=== PATIENT | female | born 1935 | race Caucasian/White ===

== ENCOUNTER 2018-09-06 09:46 | Inpatient (IN) | payer MEDICARE, OTHER ==
[~2018-09-06] VITALS: Ht 154.9 cm; Wt 65.9 kg
[~2018-09-06 09:46] MED LIST: ATEN-51 PO; MET25 PO; PRED2.5T3 PO; PREG150C PO; PRIM250T37 PO; WARFARIN
[2018-09-06] MEDS ORDERED: ALBUTEROL 0.5% (NEB) 2.5 MG/0.5 ML AMP INH STA (09:56)
[2018-09-06] MEDS ORDERED: DEXAMETHASONE 10 MG/ML 1 ML INJ IV STA (09:56)
[2018-09-06] MEDS ORDERED: IPRATROPIUM (NEB) 0.5 MG/2.5 ML AMP INH STA (09:56)
[2018-09-06] MEDS ORDERED: SODIUM CHLORIDE 0.9% 1L BAG IV* STA (09:56)
[2018-09-06] MEDS ORDERED: CEFEPIME 2GM/50 ML (PMX) 50 ML IVPB STA (09:56)
[2018-09-06] MEDS ORDERED: MAGNESIUM SULFATE 2 GM/50 ML 50 ML IVPB STA (09:56)
[2018-09-06] MEDS ORDERED: VANCOMYCIN 1 GM (PMX) 250 ML IVPB ONE (10:00)
[2018-09-06] MEDS ORDERED: ASC500 PO (12:44)
[2018-09-06] MEDS ORDERED: DOCU-144 PO (12:44)
[2018-09-06] MEDS ORDERED: MULT-105 PO (12:45)
[2018-09-06] MEDS ORDERED: ACET325T33 PO (12:46)
[2018-09-06] MEDS ORDERED: PRED5TAB PO (12:47)
[2018-09-06] MEDS ORDERED: LYR75 PO (12:48)
[2018-09-06] MEDS ORDERED: PRIM250T37 PO (12:49)
[2018-09-06] MEDS ORDERED: AMLO5TAB4 PO (12:50)
[2018-09-06] MEDS ORDERED: CYAN100080 PO (12:51)
[2018-09-06] MEDS ORDERED: ATOR-2 PO (12:51)
[2018-09-06] MEDS ORDERED: ERGO500013 PO (12:52)
[2018-09-06] MEDS ORDERED: FOLI-49 PO (12:52)
[2018-09-06] MEDS ORDERED: HYDR-3671 PO (12:53)
[2018-09-06] MEDS ORDERED: METO-448 PO (12:54)
[2018-09-06] MEDS ORDERED: AMIN30LI PO (12:55)
[2018-09-06] MEDS ORDERED: FER325 PO (12:55)
[2018-09-06] MEDS ORDERED: SULF500T5 PO (12:58)
[2018-09-06] MEDS ORDERED: GUAI600T23 PO (12:59)
[2018-09-06] MEDS ORDERED: CALC-207 PO (13:00)
[2018-09-06] MEDS ORDERED: ACETAMINOPHEN 325 MG TAB PO PRN (13:00)
[2018-09-06] MEDS ORDERED: ONDANSETRON 4 MG INJ IV PRN (13:00)
[2018-09-06] MEDS ORDERED: FLUO10TA PO (13:01)
[2018-09-06] MEDS ORDERED: MAGN400O19 PO (13:01)
[2018-09-06] MEDS ORDERED: BISA10SU75 PR (13:02)
[2018-09-06] MEDS ORDERED: NA P230E RC (13:03)
--- NOTE | 2018-09-06 13:09 | ERD ---
ER Documentation Chief Complaint Chief Complaint SOB HPI 83-year-old female history of some dementia who presents to the emergency room complaining of wheezing and shortness of breath. Patient is DNR with limited interventions recommended. Remainder of HPI is very limited. ROS Limited as documented above Medications Home Meds Reported Medications Na Phos,M-B/Na Phos,Di-Ba (Fleet Enema Extra) 230 Ml Enema, 1 APPLIC RC Q2D, ENEMA 09/06/18 Bisacodyl* (Bisacodyl*) 10 Mg Supp, 10 MG NJ DAILY, SUPP 09/06/18 Fluoxetine Hcl* (Fluoxetine Hcl*) 10 Mg Tablet, 10 MG PO DAILY, TAB 09/06/18 Magnesium Hydroxide* (Milk Of Magnesia*) 400 Mg/5 Ml Oral.susp, 30 ML PO DAILY, ML 09/06/18 Calcium Carbonate/Vitamin D3 (Calcium 500 + Vit D 200 Tablet) 1 Each Tablet, 1 EACH PO BID, TAB 09/06/18 Guaifenesin (Guaifenesin) 600 Mg Tablet.sa, 600 MG PO BID, TAB END DATE 09/08/18 09/06/18 Sulfasalazine* (Sulfazine*) 500 Mg Tablet, 500 MG PO TID, TAB 09/06/18 Ferrous Sulfate* (Ferrous Sulfate*) 325 Mg Tabec, 325 MG PO TID, TAB 09/06/18 Amino Acids/Protein Hydrolys (PRO-STAT LIQUID) 30 Ml Liquid.pkt, 30 ML PO TID 09/06/18 Metoprolol Tartrate* (Lopressor*) 25 Mg Tab, 25 MG PO BID PRN for HOLD IF SBP<110, #60 TAB 09/06/18 Hydralazine Hcl* (Hydralazine Hcl*) 25 Mg Tab, 25 MG PO QID PRN for FOR SBP>160, #60 TAB 09/06/18 Folic Acid* (Folic Acid*) 1 Mg Tablet, 1 MG PO DAILY, TAB 09/06/18 Ergocalciferol (Vitamin D2) (VITAMIN D2) 50,000 Unit Capsule, 04591 UNIT PO Q MON, CAP 09/06/18 Cyanocobalamin* (Vitamin B-12*) 1,000 Mcg Tablet.sa, 1000 MCG PO DAILY, TAB 09/06/18 Atorvastatin* (Atorvastatin*) 80 Mg Tablet, 80 MG PO QHS, #30 TAB 09/06/18 Amlodipine Besylate* (Norvasc*) 5 Mg Tablet, 5 MG PO DAILY, TAB HOLD IF SBP<110 09/06/18 Primidone* (Mysoline*) 250 Mg Tablet, 250 MG PO BID, TAB 09/06/18 Pregabalin* (Lyrica*) 75 Mg Capsule, 150 MG PO BID, CAP 09/06/18 Prednisone* (Prednisone*) 5 Mg Tab, 5 MG PO DAILY, TAB 09/06/18 Acetaminophen* (Tylenol*) 325 Mg Tablet, 650 MG PO Q4H PRN for PAIN LEVEL 1- 10/08, TAB 09/06/18 Multivitamin with Minerals (Multivitamins with Minerals) 1 Each Tablet, 1 EACH PO DAILY, TAB 09/06/18 Docusate Sodium* (Colace*) 100 Mg Capsule, 200 MG PO BID, #60 CAP 09/06/18 Ascorbic Acid (Vitamin C) 500 Mg Tab, 500 MG PO DAILY, TAB 09/06/18 Discontinued Reported Medications Prednisone* (Prednisone*) 2.5 Mg Tablet, 2.5 MG PO DAILY, TAB 12/11/14 [Warfarin] No Conflict Check TITRATING DOSE PER PT 12/11/14 Methotrexate* (Methotrexate*) 2.5 Mg Tab, 15 MG PO EVERY THURSDAY, TAB 12/11/14 Primidone* (Mysoline*) 250 Mg Tablet, 250 MG PO BID 08/10/12 Pregabalin* (Lyrica*) 150 Mg Capsule, 150 MG PO BID 08/10/12 Atenolol* (Atenolol*) 25 Mg Tablet, 25 MG PO DAILY 08/10/12 Allergies Allergies: Coded Allergies: No Known Allergy (Unverified , 09/06/18) PMhx/Soc History of Surgery: Yes (R HIP, L KNEE SX 09/28/14) Anesthesia Reaction: No Hx 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 Disorder: No Hx Respiratory Disorders: No Hx Cardiac Disorders: Yes (HTN, clotting disorder, A. FIB) Hx Psychiatric Problems: No Hx Miscellaneous Medical Probl: Yes (DVT, EPILEPSY) Hx Alcohol Use: No Hx Substance Use: No Hx Tobacco Use: No Smoking Status: Never smoker FmHx Family History: No diabetes Physical Exam Vitals Vital Signs Date Temp Pulse Resp B/P (MAP) Pulse Ox O2 O2 Flow FiO2 Time Delivery Rate 09/06/18 102 20 130/55 97 Nasal 2.0 12:00 (80) Cannula 09/06/18 102 22 96 21 11:10 09/06/18 105 26 139/111 98 Non 11:00 (120) Rebreather 09/06/18 98.2 108 30 125/72 97 09:50 (89) 09/06/18 98.2 108 30 125/72 97 09:50 (89) 09/06/18 Rebreather 8 09:50 09/06/18 Rebreather 8.0 09:50 Physical Exam General: Well developed, well nourished, no acute distress Head: Normocephalic, atraumatic. Eyes: Pupils equally reactive, EOM intact ENT: Moist mucous membranes Neck: Supple, no lymphadenopathy Respiratory: Wheezing, slight increased work of breathing Cardiovascular: Slight tachycardia, irregularly irregular, no murmurs, rubs, or gallops Abdominal: Soft, non-tender, non-distended, no peritoneal signs : Deferred MSK: No edema, no unilateral swelling, 5/5 strength Neurologic: Alert and oriented, moving all extremities, normal speech, no focal weakness, no cerebellar signs Skin: No rash Psych: Normal mood Result Diagram: 09/06/18 1012 09/06/18 1014 Results 24 hrs Laboratory Tests Test 09/06/18 10:12 09/06/18 10:14 09/06/18 10:17 09/06/18 11:20 White Blood Count 11.7 10^3/ul Red Blood Count 5.12 10^6/ul Hemoglobin 12.5 g/dl Hematocrit 40.4 % Mean Corpuscular 78.9 fl Volume Mean Corpuscular 24.4 pg Hemoglobin Mean Corpuscular 30.9 g/dl Hemoglobin Concen t Red Cell 23.3 % Distribution Width Platelet Count 235 10^3/UL Mean Platelet 9.9 fl Volume Immature 0.700 % Granulocytes % Neutrophils % 69.7 % Lymphocytes % 18.5 % Monocytes % 10.6 % Eosinophils % 0.1 % Basophils % 0.4 % Nucleated Red 0.0 /100WBC Blood Cells % Immature 0.080 10^3/ul Granulocytes # Neutrophils # 8.2 10^3/ul Lymphocytes # 2.2 10^3/ul Monocytes # 1.3 10^3/ul Eosinophils # 0.0 10^3/ul Basophils # 0.1 10^3/ul Nucleated Red 0.0 10^3/ul Blood Cells # Prothrombin Time 23.8 Sec Prothrombin Time 1.9 Ratio INR International 2.12 Normalized Ratio Activated 41.3 Sec Partial Thrombopl ast Time Sodium Level 134 mmol/L Potassium Level 4.1 mmol/L Chloride Level 98 mmol/L Carbon Dioxide 29 mmol/L Level Anion Gap 7 Blood Urea 11 mg/dl Nitrogen Creatinine 0.33 mg/dl Est Glomerular mL/min Filtrat Rate mL/min Glucose Level 144 mg/dl Calcium Level 8.3 mg/dl Total Bilirubin 0.2 mg/dl Direct Bilirubin 0.00 mg/dl Indirect 0.2 mg/dl Bilirubin Aspartate Amino 69 IU/L Transf (AST/SGOT) Alanine 40 IU/L Aminotransferase (ALT/SGPT) Alkaline 128 IU/L Phosphatase Troponin I < 0.012 ng/ml Total Protein 7.3 g/dl Albumin 3.0 g/dl Globulin 4.30 g/dl Albumin/Globulin 0.69 Ratio POC Venous 2.0 mmol/L Lactate Urine Color JOSÉ ANTONIO Urine Clarity TURBID Urine pH 7.0 Urine Specific 1.020 [place] Urine Ketones NEGATIVE mg/dL Urine Nitrite NEGATIVE mg/dL Urine Bilirubin NEGATIVE mg/dL Urine NEGATIVE mg/dL Urobilinogen Urine Leukocyte 1+ Murali/ul Esterase Urine Microscopic 66 /HPF RBC Urine Microscopic > 182 /HPF WBC Urine Squamous FEW /HPF Epithelial Cells Urine Amorphous FEW /HPF Crystals Urine Bacteria MANY /HPF Urine Mucus MODERATE /HPF Urine Yeast FEW /HPF (Budding) Urine Hemoglobin 2+ mg/dL Urine Glucose NEGATIVE mg/dL Urine Total 1+ mg/dl Protein Test 09/06/18 12:21 Lactic Acid Level 2.5 mmol/L Current Medications Medications Dose Sig/Katie Start Time Status Last (Trade) Ordered Route PRN Stop Time Admin Dose Reason Admin Sodium 1,970 ml BOLUS OVER 2 09/06/18 DC 09/06/18 Chloride HOURS STAT 09:56 09/06/18 10:36 (NS) IV* 09:59 Cefepime HCl 50 ml @ ONCE STAT 09/06/18 DC 09/06/18 100 mls/hr IVPB 09:56 09/06/18 10:35 10:25 Vancomycin 250 ml @ ONCE ONCE 09/06/18 DC 09/06/18 HCl 125 mls/hr IVPB 10:00 09/06/18 11:18 11:59 Albuterol 15 mg ONCE STAT 09/06/18 DC 09/06/18 (Proventil INH 09:56 09/06/18 11:09 0.5% (Neb)) 09:59 Ipratropium 2 mg ONCE STAT 09/06/18 DC 09/06/18 [place] INH 09:56 09/06/18 11:09 (Atrovent 09:59 0.02% (Neb)) 10 mg ONCE STAT 09/06/18 DC 09/06/18 Dexamethasone IV 09:56 09/06/18 10:59 (Decadron) 09:59 Magnesium 50 ml @ 25 ONCE STAT 09/06/18 DC 09/06/18 Sulfate mls/hr IVPB 09:56 09/06/18 10:59 11:55 Ondansetron 4 mg BRIDGE ORDER 09/06/18 HCl (Zofran PRN IV 13:00 09/07/18 Inj) NAUSEA/VOMITI 12:59 NG 650 mg ER BRIDGE 09/06/18 Acetaminophen PRN PO 13:00 09/07/18 (Tylenol .MILD PAIN 12:59 Tab) 1-3 OR TEMP Procedures/MDM EKG, MONITORS, & DIAGNOSTIC IMAGING: EKG: I reviewed and interpreted a 12-lead EKG. Rhythm: A. fib, rate around 100 ST Changes: No contiguous ST segment elevations T waves: No contiguous T wave inversions Impression: No evidence of acute cardiac ischemia CXR IMPRESSION: 1. Mild prominence of the interstitial markings, may reflect mild underlying interstitial edema or chronic lung changes. Findings are increased when compared to the prior examination. 2. Mild cardiomegaly and aortic atherosclerosis. RPTAT: LAB INTERPRETATION: I reviewed the laboratory testing and it shows lactic acid of 2.5 increased from 2.0 MEDICAL DECISION MAKING: The patient had Sirs criteria, wheezing and shortness of breath concerning for healthcare associated pneumonia. A code sepsis was initiated. ER COURSE: * Blood cultures prior to broad-spectrum antibiotics, 30 cc per kilogram bolus of normal saline * Patient given breathing treatment, magnesium, steroids * The patient's respiratory status is improving. Her blood pressure remained stable. The patient's lactic acid is having around 2-2.5. No indication for central line. Continue to monitor. * Patient's goals of care suggest DNR/DNI, limited interventions. The patient would not be a Central line candidate. CONSULTATION: None DISPOSITION PLAN: Accepting care team and consultations: I discussed the current laboratory data, diagnostic imaging and emergency care provided. Admitting team: Dr. Green on-call for primary care physician Admitting team indication: Insurance directed Sepsis Documentation: Patient's infectious symptoms have not stabilized and the patient is at risk of rapid decompensation. The patient will be admitted for careful hydration, antibiotic therapy, and infectious source control. SEVERE SEPSIS CRITERIA: Infectious source: Healthcare associated pneumonia End organ damage indicated by: [Lactate > 2.0 mmol/L SEPSIS MANAGEMENT Time of recognition of sepsis: Upon MD assessment. Time of recognition of severe sepsis: 1221. Time of recognition of septic shock: No septic shock at this time. 3 HOUR BUNDLE Blood cultures x 2 before broad-spectrum antibiotics: Yes 30 ml/kg NS bolus completed Initial lactate 2.0 Repeat lactate 2.5 SEPTIC SHOCK ASSESSMENT: No lactic acid > 4.0 No persistent hypotension (SBP < 90 or 40 mmHg drop, MAP < 65) despite 30 mL/kg IV fluid bolus VOLUME REASSESSMENT FOR SEPTIC SHOCK: The patient does not meet criteria for septic shock in the emergency department at this time PERSISTENT HYPOTENSION TREATMENT: Comfort care YES Central line not Required Vasopressor started not required I considered further perfusion assessment with CVP measurement, SCVO2, bedside ultrasound volume assessment, passive leg raise, trial of further fluid bolus. And proceeded with 30 ml/kg fluid bolus of NSS, broad spectrum antibiotics, and admission. CRITICAL CARE Critical care time 35 minutes Emergent fluid management while maintaining close respiratory support. Provision of immediate and broad-spectrum antibiotic therapy. Simultaneous assessment for possible sources in order to direct targeted therapy. Consideration for invasive and chemical support to prevent cardiopulmonary collapse. Critical care time is independent of procedures performed. Departure Diagnosis: Primary Impression: Healthcare-associated pneumonia Additional Impressions: Atrial fibrillation with controlled ventricular rate Severe sepsis Condition: Stable ODETTE HERNANDEZ MD Sep 06, 2018 13:09
[2018-09-06 14:46] VITALS: Ht 154.9 cm; Wt 65.9 kg
[2018-09-06 15:07] VITALS: BP 130/74; PULSE 109; RESP 19
--- NOTE | 2018-09-06 15:18 | HP ---
DATE OF ADMISSION: 09/06/2018 CHIEF COMPLAINT AND HISTORY OF PRESENT ILLNESS: The patient is an 83-year-old lady referred by Dr. Thu nolen from a convalescent home. The patient has history of dementia, has been having increasing david rtness of breath, wheezing for the past 2 weeks, has had a trial of different inhalers, breathing reggie atments without any improvement and patient was evaluated in the Emergency Room and was admitted. Th e patient is unable to provide any current history at this time. MEDICATIONS: 1. Fluoxetine 10 mg daily. 2. Sulfasalazine 500 mg t.i.d. 3. Metoprolol tartrate 25 mg b.i.d. 4. Hydralazine 25 mg q.i.d. p.r.n. 5. Atorvastatin 80 mg daily. 6. Amlodipine 5 mg daily. 7. Primidone 250 mg b.i.d. 8. Pregabalin 75 mg b.i.d. 9. Prednisone 5 mg daily. HISTORY OF PRESENT ILLNESS: Further history will be documented after discussing with the patient's f amily. I am unable to contact any family members at this time. The patient has had prior right hip, right knee replacement, followed by postop infection treated in 2014. REVIEW OF SYSTEMS: Unable to get any other history from the patient at this time. PHYSICAL EXAMINATION: GENERAL: The patient is an obesely built female who is in moderate respiratory distress. VITAL SIGNS: Temperature 98.0, blood pressure 129/94, O2 saturation 95% on 2 liters nasal cannula. HEENT: Mild pallor with cyanosis. Tongue is coated, dry. NECK: Supple. No thyromegaly, bruits. CHEST: Revealed bilateral wheezes, rhonchi. CARDIOVASCULAR: S1, S2 with no definite gallops. ABDOMEN: Obese, nontender. EXTREMITIES: Trace edema. Homans sign is negative. PELVIC, RECTAL, BREAST: Deferred due to patient discomfort. LABORATORY DATA: Initial WBC 11.7, hematocrit 40.4. Sodium 134, potassium 4.1, BUN 11, creatinine 0 .23. Lactic acid is 2.5. UA shows positive for leukocyte esterase, many bacteria. Chest x-ray show s prominence of interstitial markings with interstitial lung disease. IMPRESSION: 1. Acute respiratory failure with asthmatic bronchitis with possible pneumonia. 2. Underlying dementia. 3. Seizure disorder. 4. Remote history of atrial fibrillation. PLAN: We will admit the patient to the floor. Start the patient on intravenous Solu-Medrol, breathi ng treatments with hand-held nebulizer treatment. Beta agonists and antibiotic therapy with vancomyc in and cefepime. Follow along. We will also obtain urine cultures, along with blood cultures. Dictated By: NADINE JAMES MD SR/NTS Conf#: [id number] DID#: [id number] CC: KARAN YOUNG MD; NADINE JAMES MD;*EndCC*
[2018-09-06] MEDS ORDERED: METOPROLOL 25 MG TAB PO PRN (15:30)
[2018-09-06] MEDS ORDERED: VANCOMYCIN IV PER PHARMACY XX SCH (15:30)
[2018-09-06] MEDS ORDERED: ALBUTEROL/IPRATROPIUM (NEB) 3 ML AMP HHN PRN (16:00)
[2018-09-06] MEDS ORDERED: PENDING SANTYL ORDER FOR WOUND CARE XX PRN (16:00)
[2018-09-06 16:01] VITALS: PULSE 110
[2018-09-06] MEDS: METHYLPREDNISOLONE 40 MG INJ IV SCH (17:27)
[2018-09-06] MEDS: ALBUTEROL/IPRATROPIUM (NEB) 3 ML AMP HHN SCH ×2 (18:17→21:09)
[2018-09-06 20:00] VITALS: BP 126/68; PULSE 100; PULSE 103; RESP 22
[2018-09-06] MEDS: PRIMIDONE 250 MG TAB PO SCH (21:33)
[2018-09-06] MEDS: GUAIFENESIN LA 600 MG TABSR PO SCH (21:33)
[2018-09-06] MEDS: DOCUSATE SODIUM 100 MG CAP PO SCH (21:33)
[2018-09-06] MEDS: CALCIUM/VITAMIN D (500/200) TAB PO SCH (21:35)
[2018-09-06] MEDS: METOPROLOL 25 MG TAB PO SCH (21:35)
[2018-09-06] MEDS: ATORVASTATIN 80 MG TAB PO SCH (21:36)
[2018-09-06] MEDS: CEFEPIME 1GM/50 ML (PMX) 50 ML IVPB SCH (21:37)
[2018-09-06 23:29] VITALS: BP 130/83; PULSE 95; RESP 22
[2018-09-07] VITALS (12 sets, daily range): BP systolic 119–147; BP diastolic 70–96; PULSE 82–104; RESP 19–20
[2018-09-07] MEDS: METHYLPREDNISOLONE 40 MG INJ IV SCH ×5 (00:32→23:14)
[2018-09-07] MEDS: ALBUTEROL/IPRATROPIUM (NEB) 3 ML AMP HHN SCH ×6 (01:49→20:33)
[2018-09-07] MEDS: PANTOPRAZOLE (EC) 40 MG TAB PO SCH (05:19)
[2018-09-07] MEDS: CEFEPIME 1GM/50 ML (PMX) 50 ML IVPB SCH ×2 (09:06→20:40)
[2018-09-07] MEDS: METOPROLOL 25 MG TAB PO SCH ×2 (09:13→20:41)
[2018-09-07] MEDS: BISACODYL 10 MG SUPP PR SCH (09:13)
[2018-09-07] MEDS: FLUOXETINE 10 MG CAP PO SCH (09:13)
[2018-09-07] MEDS: PRIMIDONE 250 MG TAB PO SCH ×2 (09:15→20:41)
[2018-09-07] MEDS: CALCIUM/VITAMIN D (500/200) TAB PO SCH ×2 (09:15→20:40)
[2018-09-07] MEDS: DOCUSATE SODIUM 100 MG CAP PO SCH ×2 (09:15→20:40)
[2018-09-07] MEDS: GUAIFENESIN LA 600 MG TABSR PO SCH ×2 (09:15→20:40)
[2018-09-07] MEDS: ASCORBIC ACID 500 MG TAB PO SCH (09:15)
[2018-09-07] MEDS: ENOXAPARIN 30 MG/0.3 ML SYG SC SCH (09:38)
[2018-09-07] MEDS: VANCOMYCIN 750 MG (PMX) 250 ML IVPB SCH (09:44)
[2018-09-07] MEDS: PREGABALIN 75 MG CAP PO SCH ×2 (11:25→20:43)
[2018-09-07] MEDS: SULFASALAZINE 500 MG TAB PO SCH ×2 (13:21→20:40)
--- NOTE | 2018-09-07 15:10 | PN ---
DATE: 09/07/2018 SUBJECTIVE: The patient overall feels better. Shortness of breath is improving. Denies any chest p ain or palpitations. VITAL SIGNS: Temperature 97.8, blood pressure 136/96, O2 saturation 98% on 2 liters nasal cannula. JVD is not increased. CHEST: Revealed bilateral wheezes and rhonchi. HEART: S1, S2 heard, no definite gallops. EXTREMITIES: 1+ edema. Homans negative. LABORATORY DATA: Urine culture growing gram-negative rods, enterococcus. IMPRESSION: 1. Acute respiratory failure with asthmatic bronchitis with possible pneumonia. 2. Underlying dementia. 3. Seizure disorder. 4. History of atrial fibrillation. PLAN: The patient also has a urinary tract infection. We will continue vancomycin and cefepime for now until culture results are back. Recheck labs in a.m. Continue intravenous steroids, start taper ing next day, repeat chest x-ray in a.m. Dictated By: NADINE JAMES MD SR/NTS Conf#: [id number] DID#: [id number] CC: NADINE JAMES MD;*EndCC*
[2018-09-07] MEDS: ATORVASTATIN 80 MG TAB PO SCH (20:40)
[2018-09-08] VITALS (12 sets, daily range): BP systolic 121–167; BP diastolic 73–90; PULSE 77–111; RESP 19
[2018-09-08] MEDS: ALBUTEROL/IPRATROPIUM (NEB) 3 ML AMP HHN SCH ×6 (00:29→20:43)
[2018-09-08] MEDS: METHYLPREDNISOLONE 40 MG INJ IV SCH ×4 (05:45→23:16)
[2018-09-08] MEDS: PANTOPRAZOLE (EC) 40 MG TAB PO SCH (05:45)
[2018-09-08] MEDS: CEFEPIME 1GM/50 ML (PMX) 50 ML IVPB SCH ×2 (09:10→21:55)
[2018-09-08] MEDS: BISACODYL 10 MG SUPP PR SCH (09:11)
[2018-09-08] MEDS: PRIMIDONE 250 MG TAB PO SCH ×2 (09:11→21:55)
[2018-09-08] MEDS: FLUOXETINE 10 MG CAP PO SCH (09:11)
[2018-09-08] MEDS: DOCUSATE SODIUM 100 MG CAP PO SCH ×2 (09:11→21:56)
[2018-09-08] MEDS: CALCIUM/VITAMIN D (500/200) TAB PO SCH ×2 (09:11→21:55)
[2018-09-08] MEDS: GUAIFENESIN LA 600 MG TABSR PO SCH ×2 (09:11→21:55)
[2018-09-08] MEDS: ASCORBIC ACID 500 MG TAB PO SCH (09:11)
[2018-09-08] MEDS: SULFASALAZINE 500 MG TAB PO SCH ×3 (09:11→21:55)
[2018-09-08] MEDS: PREGABALIN 75 MG CAP PO SCH ×2 (09:12→21:59)
[2018-09-08] MEDS: METOPROLOL 25 MG TAB PO SCH ×2 (09:12→21:56)
[2018-09-08] MEDS: ENOXAPARIN 30 MG/0.3 ML SYG SC SCH (09:19)
[2018-09-08] MEDS: VANCOMYCIN 750 MG (PMX) 250 ML IVPB SCH (09:50)
[2018-09-08] MEDS: FUROSEMIDE 40 MG INJ IV SCH (14:54)
[2018-09-08] MEDS: POTASSIUM CHLORIDE (SR) 10 MEQ TAB PO SCH (14:54)
--- NOTE | 2018-09-08 18:32 | PN ---
DATE: 09/08/2018 SUBJECTIVE: Patient is more awake and responsive, continues to have shortness of breath. Denies any chest pain. PHYSICAL EXAMINATION VITAL SIGNS: Temperature 97.5, blood pressure 121/77, heart rate 92 per minute, O2 saturation 98% on 2 liters nasal cannula. HEENT: JVD is not increased. CHEST: Revealed diffuse wheezes and rhonchi. HEART: S1, S2 heard, no gallops. ABDOMEN: Soft, obese, nontender. EXTREMITIES: Trace edema. Homans sign is negative. IMAGING: Chest x-ray from yesterday shows increased pulmonary vascular congestion, cephalization not ed. IMPRESSION: 1. Acute respiratory failure with an asthmatic bronchitis with acute congestive heart failure. 2. Urinary tract infection with E. coli and Enterococcus. 3. Seizure disorder. 4. Atrial fibrillation. PLAN: Continue vancomycin and cefepime. Start the patient on intravenous Lasix 40 mg IV push every day. Recheck labs in a.m. and observe. Dictated By: NADINE JAMES MD, SR/KALE Conf#: [id number] DID#: [id number]
[2018-09-08] MEDS: ATORVASTATIN 80 MG TAB PO SCH (21:55)
[2018-09-09] VITALS (16 sets, daily range): BP systolic 91–128; BP diastolic 57–93; PULSE 92–130; RESP 18–21
[2018-09-09] MEDS: ALBUTEROL/IPRATROPIUM (NEB) 3 ML AMP HHN SCH ×6 (01:35→21:00)
[2018-09-09] MEDS: PANTOPRAZOLE (EC) 40 MG TAB PO SCH (06:07)
[2018-09-09] MEDS: METHYLPREDNISOLONE 40 MG INJ IV SCH ×4 (06:07→23:33)
[2018-09-09] MEDS: CEFEPIME 1GM/50 ML (PMX) 50 ML IVPB SCH ×2 (08:34→23:26)
[2018-09-09] MEDS: PRIMIDONE 250 MG TAB PO SCH ×2 (08:35→23:29)
[2018-09-09] MEDS: POTASSIUM CHLORIDE (SR) 10 MEQ TAB PO SCH (08:35)
[2018-09-09] MEDS: FLUOXETINE 10 MG CAP PO SCH (08:35)
[2018-09-09] MEDS: FUROSEMIDE 40 MG INJ IV SCH (08:35)
[2018-09-09] MEDS: BISACODYL 10 MG SUPP PR SCH (08:35)
[2018-09-09] MEDS: CALCIUM/VITAMIN D (500/200) TAB PO SCH ×2 (08:35→23:27)
[2018-09-09] MEDS: GUAIFENESIN LA 600 MG TABSR PO SCH ×2 (08:35→23:26)
[2018-09-09] MEDS: METOPROLOL 25 MG TAB PO SCH ×2 (08:36→23:28)
[2018-09-09] MEDS: DOCUSATE SODIUM 100 MG CAP PO SCH ×2 (08:38→23:27)
[2018-09-09] MEDS: SULFASALAZINE 500 MG TAB PO SCH ×3 (08:39→23:26)
[2018-09-09] MEDS: PREGABALIN 75 MG CAP PO SCH ×2 (08:41→23:33)
[2018-09-09] MEDS: ENOXAPARIN 30 MG/0.3 ML SYG SC SCH (09:00)
[2018-09-09] MEDS: ASCORBIC ACID 500 MG TAB PO SCH (09:00)
[2018-09-09] MEDS: VANCOMYCIN 750 MG (PMX) 250 ML IVPB SCH (10:19)
[2018-09-09] MEDS: DILTIAZEM-D5W 125MG/125ML DRIP 125 ML IV SCH ×3 (11:20→14:04)
[2018-09-09] MEDS ORDERED: DILTIAZEM-D5W 125MG/125ML DRIP 125 ML IV SCH (11:30)
[2018-09-09] MEDS ORDERED: FUROSEMIDE 40 MG INJ IV ONE (13:30)
--- NOTE | 2018-09-09 15:24 | RADRPT ---
Echocardiogram Report Patient Name: HELADIO LIONPatient ID: [id number] : 1935 (83y 8m)Study Date: 09/09/2018 2:15:57 PM Gender: FAccession #: [id number] Tech: Adalberto Welch [facility] Location: [facility] Ref.Physician: NADINE JAMES Height(Cm): BSA: Weight(Kg): Quality: Technically Difficult StudyAccount #: Procedures: Echocardiographic Report: Transthoracic echocardiogram with complete 2D, M-Mode, and doppler examination. Indications: Congestive Heart Failure, A-fib. Measurements: 2D/M Mode Doppler Measurement Value Normal Range Measurement Value Normal Range LVIDd 2D 3.2 [ 3.8 - 5.2 ] cm AV Peak Byron 1.4 [ 100.0 - 170.0 ] cm/sec LVIDs 2D 2.1 [ 2.2 - 3.5 ] cm AV Peak PG 7.0 [ 2.0 - 9.0 ] mmHg LVPWd 2D 1.9 [ 0.6 - 0.9 ] cm LVOT Peak Byron 0.8 [ 70.0 - 110.0 ] cm/sec IVSd 2D 1.9 [ 0.6 - 0.9 ] cm LVOT Peak PG 2.0 [ 2.0 - 6.0 ] mmHg AoR Diam 2D 2.9 [ 2.3 - 3.1 ] cm MV E Peak Byron 1.4 [ 60.0 - 130.0 ] cm/sec EDV 2D 39.7 [ 46.0 - 106.0 ] ml MV Decel Time 187 [ 104 - 258 ] msec ESV 2D 14.1 [ 14.0 - 42.0 ] ml TR Peak Byron 2.9 [ 100.0 - 280.0 ] cm/sec EF 2D 64.5 [ 54.0 - 74.0 ] percent TR Peak PG 34.0 mmHg LA Dimen 2D 4.2 [ 2.7 - 3.8 ] cm RVSP 42.0 [ 10.0 - 36.0 ] mmHg Findings: Left Ventricle: Normal left ventricular systolic function. Normal left ventricular cavity size. Moderate asymmetric septal hypertrophy. Ejection fraction is visually estimated at 65 %. Tissue Doppler/Mitral Doppler indices are indeterminate in this study due to the presence of A-fib. Right Ventricle: Normal right ventricular size. Normal right ventricular systolic function. Left Atrium: There is mild enlargement of left atrium. Right Atrium: The right atrium is normal in size. Mitral Valve: Normal appearance of the mitral valve. Mild mitral annular calcification. Trace mitral regurgitation. Aortic Valve: No significant aortic stenosis or insufficiency. Aortic cusps appear mildly calcified. Tricuspid Valve: Normal appearance of the tricuspid valve. Right ventricular systolic pressure is consistent with mild pulmonary hypertension. Estimated peak PA systolic pressure 37 mmHg. There is mild tricuspid regurgitation. Pulmonic Valve: Pulmonic valve not well visualized. No evidence of pulmonic regurgitation. Pericardium: Trivial pericardial effusion. Aorta: Normal aortic root. IVC: The IVC is not well visualized. Conclusions: Technically Difficult Study. Normal left ventricular systolic function. Normal left ventricular cavity size. Moderate asymmetric septal hypertrophy. Ejection fraction is visually estimated at 65 %. Tissue Doppler/Mitral Doppler indices are indeterminate in this study due to the presence of A-fib. Normal right ventricular size. Normal right ventricular systolic function. There is mild enlargement of left atrium. No significant aortic stenosis or insufficiency. Aortic cusps appear mildly calcified. Normal appearance of the tricuspid valve. Right ventricular systolic pressure is consistent with mild pulmonary hypertension. Estimated peak PA systolic pressure 37 mmHg. There is mild tricuspid regurgitation. Trivial pericardial effusion. Normal aortic root. The IVC is not well visualized. Electronically Signed By: Robin Hansen 2018-09-09 15:23:23 PDT
--- NOTE | 2018-09-09 17:33 | PN ---
DATE: 09/09/2018 SUBJECTIVE: The patient continues to have shortness of breath. Denies any chest pain. PHYSICAL EXAMINATION VITAL SIGNS: Temperature 97.6, heart rate went into the 130s AFib with rapid ventricular response, p resently on Cardizem drip. Blood pressure 119/66, O2 saturation 95% on 2 liters nasal cannula. NECK: JVD is . CHEST: Revealed bilateral wheezes. HEART: S1, S2 heard. No definite gallops. EXTREMITIES: A 1+ edema. Homans sign is negative. LABORATORY DATA: Sodium 137, potassium 4.5, BUN 13, creatinine 0.38. Magnesium 2.0. WBC 9.5, hemat ocrit 44.2. IMPRESSION: 1. Acute congestive heart failure, atrial fibrillation with rapid ventricular response. 2. Acute asthmatic bronchitis. 3. Urinary tract infection with Escherichia coli, enterococcus. 4. Seizure disorder. PLAN: We will continue intravenous Lasix and increase the dose. The patient would likely need to be placed on long-term anticoagulation. We will discuss with Dr. Hansen and obtain cardiac consultat ion. We will also obtain an echocardiogram. Dictated By: NADINE JAMES MD SR/NTS Conf#: [id number] DID#: [id number]
[2018-09-09] MEDS: ATORVASTATIN 80 MG TAB PO SCH (23:26)
[2018-09-10] VITALS (12 sets, daily range): BP systolic 118–127; BP diastolic 67–87; PULSE 80–114; RESP 17–20
[2018-09-10] MEDS: DILTIAZEM-D5W 125MG/125ML DRIP 125 ML IV SCH ×3 (00:19→21:39)
[2018-09-10] MEDS: ALBUTEROL/IPRATROPIUM (NEB) 3 ML AMP HHN SCH ×6 (01:00→20:22)
[2018-09-10] MEDS: METHYLPREDNISOLONE 40 MG INJ IV SCH ×3 (06:21→17:59)
[2018-09-10] MEDS: PANTOPRAZOLE (EC) 40 MG TAB PO SCH (06:21)
[2018-09-10] MEDS: GUAIFENESIN LA 600 MG TABSR PO SCH ×2 (09:46→21:27)
[2018-09-10] MEDS: ASCORBIC ACID 500 MG TAB PO SCH (09:46)
[2018-09-10] MEDS: SULFASALAZINE 500 MG TAB PO SCH ×3 (09:46→21:27)
[2018-09-10] MEDS: DOCUSATE SODIUM 100 MG CAP PO SCH ×2 (09:46→21:26)
[2018-09-10] MEDS: BISACODYL 10 MG SUPP PR SCH (09:46)
[2018-09-10] MEDS: PRIMIDONE 250 MG TAB PO SCH ×2 (09:46→21:27)
[2018-09-10] MEDS: POTASSIUM CHLORIDE (SR) 10 MEQ TAB PO SCH (09:46)
[2018-09-10] MEDS: FLUOXETINE 10 MG CAP PO SCH (09:47)
[2018-09-10] MEDS: CALCIUM/VITAMIN D (500/200) TAB PO SCH ×2 (09:47→21:27)
[2018-09-10] MEDS: METOPROLOL 25 MG TAB PO SCH ×2 (09:47→21:28)
[2018-09-10] MEDS: FUROSEMIDE 40 MG INJ IV SCH (09:48)
[2018-09-10] MEDS: CEFEPIME 1GM/50 ML (PMX) 50 ML IVPB SCH ×2 (09:48→21:26)
[2018-09-10] MEDS: PREGABALIN 75 MG CAP PO SCH ×2 (09:50→21:27)
[2018-09-10] MEDS: ENOXAPARIN 30 MG/0.3 ML SYG SC SCH (10:02)
[2018-09-10] MEDS: VANCOMYCIN HCL 1.25 GM in SOD CHLORIDE 0.9% 250 ML IVPB SCH (10:34)
[2018-09-10] MEDS: ATORVASTATIN 80 MG TAB PO SCH (21:27)
[2018-09-11] VITALS (12 sets, daily range): BP systolic 111–147; BP diastolic 67–73; PULSE 76–100; RESP 19–21
[2018-09-11] MEDS: ALBUTEROL/IPRATROPIUM (NEB) 3 ML AMP HHN SCH ×6 (00:37→22:08)
[2018-09-11] MEDS: METHYLPREDNISOLONE 40 MG INJ IV SCH ×4 (00:53→18:02)
[2018-09-11] MEDS: PANTOPRAZOLE (EC) 40 MG TAB PO SCH (06:37)
[2018-09-11] MEDS: DILTIAZEM-D5W 125MG/125ML DRIP 125 ML IV SCH ×2 (06:37→20:06)
[2018-09-11] MEDS: POTASSIUM CHLORIDE (SR) 10 MEQ TAB PO SCH (08:38)
[2018-09-11] MEDS: SULFASALAZINE 500 MG TAB PO SCH ×3 (08:38→21:16)
[2018-09-11] MEDS: FLUOXETINE 10 MG CAP PO SCH (08:38)
[2018-09-11] MEDS: CALCIUM/VITAMIN D (500/200) TAB PO SCH ×2 (08:38→21:14)
[2018-09-11] MEDS: DOCUSATE SODIUM 100 MG CAP PO SCH ×2 (08:39→21:14)
[2018-09-11] MEDS: PRIMIDONE 250 MG TAB PO SCH ×2 (08:39→21:14)
[2018-09-11] MEDS: ASCORBIC ACID 500 MG TAB PO SCH (08:39)
[2018-09-11] MEDS: BISACODYL 10 MG SUPP PR SCH (08:39)
[2018-09-11] MEDS: GUAIFENESIN LA 600 MG TABSR PO SCH ×2 (08:39→21:14)
[2018-09-11] MEDS: FUROSEMIDE 40 MG INJ IV SCH (08:39)
[2018-09-11] MEDS: CEFEPIME 1GM/50 ML (PMX) 50 ML IVPB SCH ×2 (08:40→21:10)
[2018-09-11] MEDS: VANCOMYCIN HCL 1.25 GM in SOD CHLORIDE 0.9% 250 ML IVPB SCH (09:00)
[2018-09-11] MEDS: PREGABALIN 75 MG CAP PO SCH ×2 (09:00→21:17)
--- NOTE | 2018-09-11 09:04 | CONS ---
Assessment/Plan Assessment/Plan Hospital Course (Demo Recall) Impression: 1) Afib - rate controlled on cardizem gtt- convert to po and restart coumadin goal inr 2-3. therapeutic at admission recheck in am. has recent stroke at [facility] 07/2018 - can add back home metoprolol 25mg po, dose at tid and wean off cardizem gtt - restart coumadin 5mg daily 2) Dyspnea-mild edema on cxr. on tx for abx stable - check bnp - cont lasix - abx per pcp Consultation Date/Type/Reason Admit Date/Time Sep 06, 2018 at 12:46 Date of Consultation: Sep 11, 2018 Type of Consult Cardiology Reason for Consultation afib Requesting Provider: NADINE JAMES MD Date/Time of Note DATE: 09/11/18 TIME: 08:56 Hx of Present Illness 83 y.o. wih h/o chronic afib, htn, mctd, dvt, dementia,. recent admission to [facility] 07/2018 for syncope. found to have subacute stroke. pt seen by neuro recommended anticoag and statin. pt placed on coumadin with inr 2-3 at that time. pt now admitted for shortness of breath, wheezing for the past 2 weeks, has been treated for pna with abx and given low dose diuretic for possible CHF component. Echo is unchanged shows mild lvh and normal lv fxn. has dementia, arousable but tired. unable to answer questions currently or have conversation. unable to obtain from pt do to medical condition Past Medical History h/o chronic afib, htn, mctd, dvt, dementia Home Meds Reported Medications Na Phos,M-B/Na Phos,Di-Ba (Fleet Enema Extra) 230 Ml Enema, 1 APPLIC RC Q2D, ENEMA 09/06/18 Bisacodyl* (Bisacodyl*) 10 Mg Supp, 10 MG PA DAILY, SUPP 09/06/18 Fluoxetine Hcl* (Fluoxetine Hcl*) 10 Mg Tablet, 10 MG PO DAILY, TAB 09/06/18 Magnesium Hydroxide* (Milk Of Magnesia*) 400 Mg/5 Ml Oral.susp, 30 ML PO DAILY, ML 09/06/18 Calcium Carbonate/Vitamin D3 (Calcium 500 + Vit D 200 Tablet) 1 Each Tablet, 1 EACH PO BID, TAB 09/06/18 Guaifenesin (Guaifenesin) 600 Mg Tablet.sa, 600 MG PO BID, TAB END DATE 09/08/18 09/06/18 Sulfasalazine* (Sulfazine*) 500 Mg Tablet, 500 MG PO TID, TAB 09/06/18 Ferrous Sulfate* (Ferrous Sulfate*) 325 Mg Tabec, 325 MG PO TID, TAB 09/06/18 Amino Acids/Protein Hydrolys (PRO-STAT LIQUID) 30 Ml Liquid.pkt, 30 ML PO TID 09/06/18 Metoprolol Tartrate* (Lopressor*) 25 Mg Tab, 25 MG PO BID PRN for HOLD IF SBP<110, #60 TAB 09/06/18 Hydralazine Hcl* (Hydralazine Hcl*) 25 Mg Tab, 25 MG PO QID PRN for FOR SBP>160, #60 TAB 09/06/18 Folic Acid* (Folic Acid*) 1 Mg Tablet, 1 MG PO DAILY, TAB 09/06/18 Ergocalciferol (Vitamin D2) (VITAMIN D2) 50,000 Unit Capsule, 07611 UNIT PO Q MON, CAP 09/06/18 Cyanocobalamin* (Vitamin B-12*) 1,000 Mcg Tablet.sa, 1000 MCG PO DAILY, TAB 09/06/18 Atorvastatin* (Atorvastatin*) 80 Mg Tablet, 80 MG PO QHS, #30 TAB 09/06/18 Amlodipine Besylate* (Norvasc*) 5 Mg Tablet, 5 MG PO DAILY, TAB HOLD IF SBP<110 09/06/18 Primidone* (Mysoline*) 250 Mg Tablet, 250 MG PO BID, TAB 09/06/18 Pregabalin* (Lyrica*) 75 Mg Capsule, 150 MG PO BID, CAP 09/06/18 Prednisone* (Prednisone*) 5 Mg Tab, 5 MG PO DAILY, TAB 09/06/18 Acetaminophen* (Tylenol*) 325 Mg Tablet, 650 MG PO Q4H PRN for PAIN LEVEL 1- 510, TAB 09/06/18 Multivitamin with Minerals (Multivitamins with Minerals) 1 Each Tablet, 1 EACH PO DAILY, TAB 09/06/18 Docusate Sodium* (Colace*) 100 Mg Capsule, 200 MG PO BID, #60 CAP 09/06/18 Ascorbic Acid (Vitamin C) 500 Mg Tab, 500 MG PO DAILY, TAB 09/06/18 Medications Current Medications Acetaminophen (Tylenol Tab) 650 mg Q4H PRN PO PAIN LEVEL 1-5/10; Start 09/06/18 at 15:30 Ascorbic Acid (Vitamin C) 500 mg DAILY PO Last administered on 09/10/18 09:46; Admin Dose 500 MG; Start 09/07/18 at 09:00 Atorvastatin Calcium (Lipitor) 80 mg QHS PO Last administered on 09/10/18 21:27; Admin Dose 80 MG; Start 09/06/18 at 21:00 Bisacodyl (Dulcolax Supp) 10 mg DAILY PA Last administered on 09/10/18 09:46; Admin Dose 10 MG; Start 09/07/18 at 09:00 Calcium/Vitamin D (Oyster Shell/ Vit-D (500/200)) 1 tab BID PO Last adminis tered on 09/10/18 21:27; Admin Dose 1 TAB; Start 09/06/18 at 21:00 Docusate Sodium (Colace) 200 mg BID PO Last administered on 09/10/18 21:26; Admin Dose 200 MG; Start 09/06/18 at 21:00 Fluoxetine HCl (Prozac) 10 mg DAILY PO Last administered on 09/10/18 09:47; Admin Dose 10 MG; Start 09/07/18 at 09:00 Guaifenesin (Mucinex) 600 mg BID PO Last administered on 09/10/18 21:27; Admin Dose 600 MG; Start 09/06/18 at 21:00 Primidone (Mysoline) 250 mg BID PO Last administered on 09/10/18 21:27; Admin Dose 250 MG; Start 09/06/18 at 21:00 Methylprednisolone Sodium Succinate (Solu-Medrol) 40 mg Q6 IV Last administered on 09/11/18 06:37; Admin Dose 40 MG; Start 09/06/18 at 18:00 Pantoprazole (Protonix Tab) 40 mg DAILY@06 PO Last administered on 09/11/18 06:37; Admin Dose 40 MG; Start 09/07/18 at 06:00 Vancomycin HCl (Vanco Iv Per Pharmacy) VANCOMYCIN PER PHARMACY PER PROTOCOL XX ; Start 09/06/18 at 15:30 Cefepime HCl 50 ml @ 100 mls/hr Q12 IVPB Last administered on 09/10/18 21:26; Admin Dose 100 MLS/HR; Start 09/06/18 at 21:00 Albuterol/ Ipratropium (Duoneb) 3 ml Q4H RESP THERAPY HHN Last administered on 09/11/18 04:28; Admin Dose 3 ML; Start 09/06/18 at 17:00 Enoxaparin Sodium (Lovenox) 30 mg DAILY SC Last administered on 09/10/18 10:02; Admin Dose 30 MG; Start 09/07/18 at 09:00 Promethazine HCl (Phenergan Liq) 6.25 mg TID PRN PO Cough; Start 09/06/18 at 15:30 Metoprolol Tartrate (Lopressor) 25 mg BID PO Last administered on 09/10/18 21:28; Admin Dose 25 MG; Start 09/06/18 at 21:00 [facility]iscellaneous [facility] This patient florentino... PRN PRN XX WOUND CARE; Start 09/06/18 at 16:00 Albuterol/ Ipratropium (Duoneb) 3 ml Q4H RESP THERAPY PRN HHN SHORTNESS OF BREATH; Start 09/06/18 at 16:00 Pregabalin (Lyrica) 150 mg BID PO Last administered on 09/10/18 21:27; Admin Dose 150 MG; Start 09/07/18 at 10:30 Sulfasalazine (Azulfidine) 500 mg TID PO Last administered on 09/10/18 21:27; Admin Dose 500 MG; Start 09/07/18 at 13:00 Furosemide (Lasix) 40 mg DAILY IV Last administered on 09/10/18 09:48; Admin Dose 40 MG; Start 09/08/18 at 14:30 Potassium Chloride (Klor-Con 10) 30 meq DAILY PO Last administered on 09/10/18 09:46; Admin Dose 30 MEQ; Start 09/08/18 at 14:30 Diltiazem HCl 125 ml @ 5 mls/hr TITRATE IV Last administered on 09/11/18 06:37; Admin Dose 15 MLS/HR; Start 09/09/18 at 11:30 Vancomycin HCl 1.25 gm/Sodium Chloride 250 ml @ 83.333 mls/ hr Q24H IVPB Last administered on 4/12/19at 10:34; Admin Dose 83.333 MLS/HR; Start 09/10/18 at 09:00 Allergies: Coded Allergies: No Known Allergy (Unverified , 09/06/18) Past Surgical History knee Family History Significant Family History: other (denied high risk cad hx) Social History Alcohol Use: none Smoking Status: Never smoker Drug Use: none Exam/Review of Systems Exam Vitals Vital Signs Date Temp Pulse Resp B/P (MAP) Pulse Ox O2 O2 Flow FiO2 Time Delivery Rate 09/11/18 97.6 100 19 123/73 96 07:28 (90) 09/11/18 Nasal 2.0 04:28 Cannula 09/07/18 21 20:33 Intake and Output 09/10/18 09/10/18 09/11/18 1515:00 23:00 07:00 IntakeIntake Total 550 ml 150 ml OutputOutput Total 2000 ml 350 ml BalanceBalance -1450 ml -200 ml Exam HEENT: op clear , 2+ carotid CV: irregularly irregular, nl s1s2, ii/vi jocy rusb PULM: crackles in base ABD: soft ntnd EXT: wwp 2+ DP Constitutional: other (somnolent) Results Result Diagram: 09/11/18 0522 09/11/18 0522 Results 24hrs Laboratory Tests Test 09/11/18 05:22 White Blood Count 11.2 H Red Blood Count 4.76 Hemoglobin 11.7 L Hematocrit 38.0 Mean Corpuscular Volume 79.8 L Mean Corpuscular Hemoglobin 24.6 L Mean Corpuscular Hemoglobin Concent 30.8 L Red Cell Distribution Width 22.8 H Platelet Count 232 Mean Platelet Volume 9.5 Immature Granulocytes % 3.600 H Neutrophils % 82.1 H Lymphocytes % 8.7 L Monocytes % 5.2 Eosinophils % 0.0 Basophils % 0.4 Nucleated Red Blood Cells % 0.0 Immature Granulocytes # 0.400 H Neutrophils # 9.2 H Lymphocytes # 1.0 Monocytes # 0.6 Eosinophils # 0.0 Basophils # 0.1 Nucleated Red Blood Cells # 0.0 Sodium Level 135 Potassium Level 4.8 Chloride Level 92 L Carbon Dioxide Level 36 H Anion Gap 7 Blood Urea Nitrogen 18 Creatinine 0.47 Est Glomerular Filtrat Rate mL/min Glucose Level 161 Calcium Level 8.7 Magnesium Level 2.0 Imaging Imaging ekg: afib cxr report reviewed in emr Medications Medication Current Medications Acetaminophen (Tylenol Tab) 650 mg Q4H PRN PO PAIN LEVEL 1-5/10; Start 09/06/18 at 15:30 Ascorbic Acid (Vitamin C) 500 mg DAILY PO Last administered on 09/10/18 09:46; Admin Dose 500 MG; Start 09/07/18 at 09:00 Atorvastatin Calcium (Lipitor) 80 mg QHS PO Last administered on 09/10/18 21:27; Admin Dose 80 MG; Start 09/06/18 at 21:00 Bisacodyl (Dulcolax Supp) 10 mg DAILY PA Last administered on 09/10/18 09:46; Admin Dose 10 MG; Start 09/07/18 at 09:00 Calcium/Vitamin D (Oyster Shell/ Vit-D (500/200)) 1 tab BID PO Last administered on 09/10/18 21:27; Admin Dose 1 TAB; Start 09/06/18 at 21:00 Docusate Sodium (Colace) 200 mg BID PO Last administered on 09/10/18 21:26; Admin Dose 200 MG; Start 09/06/18 at 21:00 Fluoxetine HCl (Prozac) 10 mg DAILY PO Last administered on 09/10/18 09:47; Admin Dose 10 MG; Start 09/07/18 at 09:00 Guaifenesin (Mucinex) 600 mg BID PO Last administered on 09/10/18 21:27; Admin Dose 600 MG; Start 09/06/18 at 21:00 Primidone (Mysoline) 250 mg BID PO Last administered on 09/10/18 21:27; Admin Dose 250 MG; Start 09/06/18 at 21:00 Methylprednisolone Sodium Succinate (Solu-Medrol) 40 mg Q6 IV Last administered on 09/11/18 06:37; Admin Dose 40 MG; Start 09/06/18 at 18:00 Pantoprazole (Protonix Tab) 40 mg DAILY@06 PO Last administered on 09/11/18 06:37; Admin Dose 40 MG; Start 09/07/18 at 06:00 Vancomycin HCl (Vanco Iv Per Pharmacy) VANCOMYCIN PER PHARMACY PER PROTOCOL XX ; Start 09/06/18 at 15:30 Cefepime HCl 50 ml @ 100 mls/hr Q12 IVPB Last administered on 09/10/18 21:26; Admin Dose 100 MLS/HR; Start 09/06/18 at 21:00 Albuterol/ Ipratropium (Duoneb) 3 ml Q4H RESP THERAPY HHN Last administered on 09/11/18 04:28; Admin Dose 3 ML; Start 09/06/18 at 17:00 Enoxaparin Sodium (Lovenox) 30 mg DAILY SC Last administered on 09/10/18 10:02; Admin Dose 30 MG; Start 09/07/18 at 09:00 Promethazine HCl (Phenergan Liq) 6.25 mg TID PRN PO Cough; Start 09/06/18 at 15:30 Metoprolol Tartrate (Lopressor) 25 mg BID PO Last administered on 09/10/18 21:28; Admin Dose 25 MG; Start 09/06/18 at 21:00 Miscellaneous Information ([facility] This patient florentino... PRN PRN XX WOUND CARE; Start 09/06/18 at 16:00 Albuterol/ Ipratropium (Duoneb) 3 ml Q4H RESP THERAPY PRN HHN SHORTNESS OF BREATH; Start 09/06/18 at 16:00 Pregabalin (Lyrica) 150 mg BID PO Last administered on 09/10/18 21:27; Admin Dose 150 MG; Start 09/07/18 at 10:30 Sulfasalazine (Azulfidine) 500 mg TID PO Last administered on 09/10/18 21:27; Admin Dose 500 MG; Start 09/07/18 at 13:00 Furosemide (Lasix) 40 mg DAILY IV Last administered on 09/10/18 09:48; Admin Dose 40 MG; Start 09/08/18 at 14:30 Potassium Chloride (Klor-Con 10) 30 meq DAILY PO Last administered on 09/10/18 09:46; Admin Dose 30 MEQ; Start 09/08/18 at 14:30 Diltiazem HCl 125 ml @ 5 mls/hr TITRATE IV Last administered on 09/11/18 06:37; Admin Dose 15 MLS/HR; Start 09/09/18 at 11:30 Vancomycin HCl 1.25 gm/Sodium Chloride 250 ml @ 83.333 mls/ hr Q24H IVPB Last administered on 09/10/18at 10:34; Admin Dose 83.333 MLS/HR; Start 09/10/18 at 09:00 NA TALAVERA Sep 11, 2018 09:04
[2018-09-11] MEDS: METOPROLOL 25 MG TAB PO SCH ×3 (09:30→21:15)
[2018-09-11] MEDS: ENOXAPARIN 30 MG/0.3 ML SYG SC SCH (09:50)
[2018-09-11] MEDS: WARFARIN 5 MG TAB GTB SCH (18:02)
[2018-09-11] MEDS: ATORVASTATIN 80 MG TAB PO SCH (21:14)
--- NOTE | 2018-09-11 23:40 | PN ---
DATE: 09/11/2018 SUBJECTIVE: The patient continues to have moderate shortness of breath but improved. PHYSICAL EXAMINATION: GENERAL: The patient is awake. VITAL SIGNS: Temperature 97.9, blood pressure 129/67, O2 saturation 94% on 2 liters nasal cannula. JVD is not increased. CHEST: Bilateral inspiratory and expiratory wheezes. HEART: S1, S2 with no definite gallops. Heart rate well controlled. EXTREMITIES: Trace edema. Homans sign is negative. Dr. Hansen's cardiology consultation greatly appreciated. LABORATORY DATA: WBC 11.2, hematocrit 38.0. Sodium 135, potassium 4.8, BUN 18, creatinine 0.47. IMPRESSION: 1. Acute congestive heart failure, atrial fibrillation with acceptable ventricular response. 2. Acute asthmatic bronchitis. 3. Urinary tract infection, Escherichia coli, enterococcus. 4. Seizure disorder. PLAN: We will start the patient on anticoagulation as per Dr. Hansen's recommendations and follow his recommendations. Continue IV diuretic. Monitor electrolytes. Dictated By: NADINE JAMES MD, SR/KALE Conf#: [id number] DID#: [id number]
[2018-09-12] VITALS (11 sets, daily range): BP systolic 103–159; BP diastolic 51–98; PULSE 65–96; RESP 18–21
[2018-09-12] MEDS: METHYLPREDNISOLONE 40 MG INJ IV SCH ×4 (00:44→17:33)
[2018-09-12] MEDS: ALBUTEROL/IPRATROPIUM (NEB) 3 ML AMP HHN SCH ×6 (01:20→21:50)
[2018-09-12] MEDS: PANTOPRAZOLE (EC) 40 MG TAB PO SCH (06:55)
[2018-09-12] MEDS: DILTIAZEM-D5W 125MG/125ML DRIP 125 ML IV SCH ×2 (07:29→08:32)
[2018-09-12] MEDS: ENOXAPARIN 30 MG/0.3 ML SYG SC SCH (09:00)
[2018-09-12] MEDS: PREGABALIN 75 MG CAP PO SCH ×2 (09:00→20:57)
[2018-09-12] MEDS: BISACODYL 10 MG SUPP PR SCH (09:00)
[2018-09-12] MEDS: POTASSIUM CHLORIDE (SR) 10 MEQ TAB PO SCH (09:44)
[2018-09-12] MEDS: FUROSEMIDE 40 MG INJ IV SCH (09:44)
[2018-09-12] MEDS: PRIMIDONE 250 MG TAB PO SCH ×2 (09:45→20:57)
[2018-09-12] MEDS: SULFASALAZINE 500 MG TAB PO SCH ×3 (09:45→20:57)
[2018-09-12] MEDS: ASCORBIC ACID 500 MG TAB PO SCH (09:45)
[2018-09-12] MEDS: METOPROLOL 25 MG TAB PO SCH ×3 (09:45→20:59)
[2018-09-12] MEDS: DOCUSATE SODIUM 100 MG CAP PO SCH ×2 (09:45→20:59)
[2018-09-12] MEDS: FLUOXETINE 10 MG CAP PO SCH (09:45)
[2018-09-12] MEDS: CALCIUM/VITAMIN D (500/200) TAB PO SCH ×2 (09:45→20:59)
[2018-09-12] MEDS: GUAIFENESIN LA 600 MG TABSR PO SCH ×2 (09:46→20:57)
[2018-09-12] MEDS: CEFEPIME 1GM/50 ML (PMX) 50 ML IVPB SCH ×2 (09:46→20:59)
--- NOTE | 2018-09-12 10:41 | CONS ---
Assessment/Plan Assessment/Plan Hospital Course (Demo Recall) Impression: 1) Afib - rate controlled on cardizem gtt- convert to po metoprolol and cont coumadin goal inr 2-3. therapeutic at admission recheck in am. has recent stroke at [facility] 07/2018 - increase metoprolol to 37.5mg po tid. turn off cardizem gtt. extra metop prn goal HR < 100 at rest - coumadin 5mg daily ogal inr 2-3 2) Dyspnea-mild edema on cxr. on tx for abx stable - check bnp - cont lasix - abx per pcp d/w nurse at bedside, family via phone Consultation Date/Type/Reason Admit Date/Time Sep 06, 2018 at 12:46 Initial Consult Date Date/Time of Note DATE: 09/12/18 TIME: 10:35 24 HR Interval Summary Free Text/Dictation no acute events. pt stable on lower dose cardizem gtt. was refusing meds, now taking them. no cp/sob/dizziness she reports. tele reviewed afib hrs 80s-90s Detailed Summary Eyes: no complaints ENT: no complaints Respiratory: no complaints Cardiovascular: no complaints Exam/Review of Systems Exam Vitals Vital Signs Date Temp Pulse Resp B/P (MAP) Pulse Ox O2 O2 Flow FiO2 Time Delivery Rate 09/12/18 72 16 96 Nasal 2.0 10:06 Cannula 09/12/18 97.4 159/98 07:26 (118) Intake and Output 09/11/18 09/11/18 09/12/18 1515:00 23:00 07:00 IntakeIntake Total 400 ml 375 ml OutputOutput Total 1800 ml 350 ml BalanceBalance -1400 ml 25 ml Exam GEN: alert, no distress HEENT: op clear , 2+ carotid CV: irregularly irregular, nl s1s2, ii/vi jocy rusb PULM: crackles in base ABD: soft ntnd EXT: wwp 2+ DP Results Result Diagram: 09/11/1852109/11/18521 Results 24hrs Laboratory Tests Test 09/12/18 08:37 Prothrombin Time 12.9 # Prothrombin Time Ratio 1.0 INR International Normalized Ratio 0.96 Imaging Imaging cxr report reviewed in emr Medications Medication Current Medications Acetaminophen (Tylenol Tab) 650 mg Q4H PRN PO PAIN LEVEL 1-5/10; Start 09/06/18 at 15:30 Ascorbic Acid (Vitamin C) 500 mg DAILY PO Last administered on 09/12/18 09:45; Admin Dose 500 MG; Start 09/07/18 at 09:00 Atorvastatin Calcium (Lipitor) 80 mg QHS PO Last administered on 09/11/18 21:14; Admin Dose 80 MG; Start 09/06/18 at 21:00 Bisacodyl (Dulcolax Supp) 10 mg DAILY NE Last administered on 09/11/18 08:39; Admin Dose 10 MG; Start 09/07/18 at 09:00 Calcium/Vitamin D (Oyster Shell/ Vit-D (500/200)) 1 tab BID PO Last administered on 09/12/18 09:45; Admin Dose 1 TAB; Start 09/06/18 at 21:00 Docusate Sodium (Colace) 200 mg BID PO Last administered on 09/12/18 09:45; Admin Dose 200 MG; Start 09/06/18 at 21:00 Fluoxetine HCl (Prozac) 10 mg DAILY PO Last administered on 09/12/18 09:45; Admin Dose 10 MG; Start 09/07/18 at 09:00 Guaifenesin (Mucinex) 600 mg BID PO Last administered on 09/12/18 09:46; Admin Dose 600 MG; Start 09/06/18 at 21:00 Primidone (Mysoline) 250 mg BID PO Last administered on 09/12/18 09:45; Admin Dose 250 MG; Start 09/06/18 at 21:00 Methylprednisolone Sodium Succinate (Solu-Medrol) 40 mg Q6 IV Last administered on 09/12/18 06:54; Admin Dose 40 MG; Start 09/06/18 at 18:00 Pantoprazole (Protonix Tab) 40 mg DAILY@06 PO Last administered on 09/12/18 06:55; Admin Dose 40 MG; Start 09/07/18 at 06:00 Vancomycin HCl (Vanco Iv Per Pharmacy) VANCOMYCIN PER PHARMACY PER PROTOCOL XX ; Start 09/06/18 at 15:30 Cefepime HCl 50 ml @ 100 mls/hr Q12 IVPB Last administered on 09/12/18 09:46; Admin Dose 100 MLS/HR; Start 09/06/18 at 21:00 Albuterol/ Ipratropium (Duoneb) 3 ml Q4H RESP THERAPY HHN Last administered on 09/12/18 10:03; Admin Dose 3 ML; Start 09/06/18 at 17:00 Enoxaparin Sodium (Lovenox) 30 mg DAILY SC Last administered on 09/12/18 09:0 0; Admin Dose 30 MG; Start 09/07/18 at 09:00 Promethazine HCl (Phenergan Liq) 6.25 mg TID PRN PO Cough; Start 09/06/18 at 15:30 [facility] This patient florentino... PRN PRN XX WOUND CARE; Start 09/06/18 at 16:00 Albuterol/ Ipratropium (Duoneb) 3 ml Q4H RESP THERAPY PRN HHN SHORTNESS OF BREATH; Start 09/06/18 at 16:00 Pregabalin (Lyrica) 150 mg BID PO Last administered on 09/11/18 21:17; Admin Dose 150 MG; Start 09/07/18 at 10:30 Sulfasalazine (Azulfidine) 500 mg TID PO Last administered on 09/12/18 09:45; Admin Dose 500 MG; Start 09/07/18 at 13:00 Furosemide (Lasix) 40 mg DAILY IV Last administered on 09/12/18 09:44; Admin Dose 40 MG; Start 09/08/18 at 14:30 Potassium Chloride (Klor-Con 10) 30 meq DAILY PO Last administered on 09/12/18 09:44; Admin Dose 30 MEQ; Start 09/08/18 at 14:30 Diltiazem HCl 125 ml @ 5 mls/hr TITRATE IV Last administered on 09/12/18 08:32; Admin Dose 5 MLS/HR; Start 09/09/18 at 11:30 Vancomycin HCl 1.25 gm/Sodium Chloride 250 ml @ 83.333 mls/ hr Q24H IVPB Last administered on 09/11/18 09:00; Admin Dose 83.333 MLS/HR; Start 09/10/18 at 09:00 Metoprolol Tartrate (Lopressor) 25 mg TID PO Last administered on 09/12/18 09:45; Admin Dose 25 MG; Start 4/13/19 at 09:30 Warfarin Sodium (Coumadin) 5 mg DAILY@17 GTB Last administered on 09/11/18at 18:02; Admin Dose 5 MG; Start 09/11/18 at 17:00 NA TALAVERA Sep 12, 2018 10:41
[2018-09-12] MEDS: VANCOMYCIN HCL 1.25 GM in SOD CHLORIDE 0.9% 250 ML IVPB SCH (11:00)
[2018-09-12] MEDS ORDERED: COLLAGENASE 5 GM (UD JAR) TOP ONE (12:25)
[2018-09-12] MEDS: WARFARIN 5 MG TAB GTB SCH (17:33)
[2018-09-12] MEDS: ATORVASTATIN 80 MG TAB PO SCH (20:57)
[2018-09-13] VITALS (12 sets, daily range): BP systolic 100–123; BP diastolic 57–76; PULSE 71–85; RESP 19–20
[2018-09-13] MEDS: METHYLPREDNISOLONE 40 MG INJ IV SCH ×4 (00:15→23:06)
[2018-09-13] MEDS: ALBUTEROL/IPRATROPIUM (NEB) 3 ML AMP HHN SCH ×6 (01:20→21:25)
[2018-09-13] MEDS: PANTOPRAZOLE (EC) 40 MG TAB PO SCH (05:45)
--- NOTE | 2018-09-13 07:05 | PN ---
DATE: 09/12/2018 SUBJECTIVE: The patient is more responsive today, continues to have shortness of breath, denies any chest pains. OBJECTIVE: VITAL SIGNS: Temperature 97.6, blood pressure 130/72, O2 saturation 94% on 3 liters nasal cannula. NECK: JVD is not increased. CHEST: Revealed bilateral wheezes. HEART: S1, S2 heard. There is no definite gallops. ABDOMEN: Obese. EXTREMITIES: Trace edema. Homans sign is negative. LABORATORY DATA: PT/INR 0.96 on Coumadin 5 mg daily. IMPRESSION: 1. Atrial fibrillation, well controlled. 2. Congestive heart failure. 3. Acute asthmatic bronchitis. 4. Urinary tract infection with Escherichia coli enterococcus. 5. Seizure disorder. PLAN: Nurses mentioned, the patient has dysphagia, suspect residual of her prior stroke. We will re quest speech therapy evaluation. Continue Coumadin. Continue intravenous Lasix for now. Follow rec ommendations per Dr. Hansen. Dictated By: NADINE JAMES MD SR/KALE Conf#: [id number] DID#: [id number]
--- NOTE | 2018-09-13 07:05 | PN ---
DATE: 09/10/2018 SUBJECTIVE: The patient continues to have shortness of breath. Denies any chest pains. OBJECTIVE: VITAL SIGNS: Temperature 98.1, blood pressure 118/71, O2 saturation 98% on 2 liters nasal cannula. Rhythm is atrial fibrillation, well controlled in the 80s. NECK: JVD is not increased. CHEST: Revealed diffuse wheezes and rhonchi. HEART: S1, S2 heard. No definite gallops. ABDOMEN: Soft, obese. EXTREMITIES: Decreased edema. Homans sign is negative. LABORATORY DATA: Sodium 137, potassium 3.6, BUN 17, creatinine 0.45. WBC of 8.8, hematocrit 38.8. IMPRESSION: 1. Acute congestive heart failure, atrial fibrillation with rapid ventricular response. 2. Acute asthmatic bronchitis. 3. Urinary tract infection, Escherichia coli, Enterococcus. 4. Seizure disorder. PLAN: Continue intravenous Lasix for now. Repeat chest x-ray in a.m. Follow electrolytes. Dictated By: NADINE JAMES MD, SR/KALE Conf#: [id number] DID#: [id number]
[2018-09-13] MEDS: CEFEPIME 1GM/50 ML (PMX) 50 ML IVPB SCH ×2 (08:17→23:00)
[2018-09-13] MEDS: PREGABALIN 75 MG CAP PO SCH ×2 (08:18→23:06)
[2018-09-13] MEDS: SULFASALAZINE 500 MG TAB PO SCH ×3 (08:18→23:05)
[2018-09-13] MEDS: PRIMIDONE 250 MG TAB PO SCH ×2 (08:18→23:06)
[2018-09-13] MEDS: POTASSIUM CHLORIDE (SR) 10 MEQ TAB PO SCH (08:18)
[2018-09-13] MEDS: FUROSEMIDE 40 MG INJ IV SCH (08:18)
[2018-09-13] MEDS: FLUOXETINE 10 MG CAP PO SCH (08:19)
[2018-09-13] MEDS: CALCIUM/VITAMIN D (500/200) TAB PO SCH ×2 (08:19→23:00)
[2018-09-13] MEDS: DOCUSATE SODIUM 100 MG CAP PO SCH ×2 (08:19→23:02)
[2018-09-13] MEDS: GUAIFENESIN LA 600 MG TABSR PO SCH ×2 (08:19→23:00)
[2018-09-13] MEDS: ASCORBIC ACID 500 MG TAB PO SCH (08:19)
[2018-09-13] MEDS: METOPROLOL 25 MG TAB PO SCH ×3 (08:19→23:01)
[2018-09-13] MEDS: BISACODYL 10 MG SUPP PR SCH (08:22)
[2018-09-13] MEDS: ENOXAPARIN 30 MG/0.3 ML SYG SC SCH (08:41)
--- NOTE | 2018-09-13 09:13 | PN ---
Date/Time of Note Date/Time of Note DATE: 09/13/18 TIME: 09:07 SUBJECTIVE: Patient without any complaints asking her in Persian. Chart, medications and laboratory studies reviewed. Review of systems Not obtainable patient not communicative. OBJECTIVE: Vital signs please see chart. HEENT; no JVD, positive HJR, carotids 2 over 4+ without bruits. Chest: Clear to auscultation and percussion, no rales, wheezes or rhonchi. Difficult exam Cardiac: S1, S2 with normal physiologic splitting, 1/6 systolic ejection murmur, no rub click or diastolic murmur noted. Abdominal: Bowel sounds positive, soft nontender, no abdominal bruit noted, no hepatosplenomegaly. Extremities: No cyanosis, clubbing, or edema. Negative Homans sign or palpable cords. Prior right knee replacement scar. Pulses: 2/4 pulses diffusely no bruits noted. LABORATORY STUDIES; Hemoglobin 10.1, hematocrit 30.9, MCV 98, white count 7.6 normal platelets, normal electrolytes renal function coagulation parameters. Telemetry atrial fibrillation rate controlled. Chest x-ray: Borderline cardiomegaly calcified aortic knob no heart failure no widened mediastinum. No EKG available for review. ASSESSMENT: 1. Chronic atrial fibrillation rates controlled on current regimen. Not well anticoagulated. 2. Prior CVA 07/20 at [facility]. 3. Dyspnea probable asthmatic bronchitis. 4. Dementia. 5. Macrocytic anemia. At this time patient's atrial fibrillation rates are controlled. She is not well anticoagulated, continue low-dose diuresis start oral in next 1-2 days, INR goal should be 2-3 discontinue Lovenox once therapeutic, continue treatment for probable asthmatic bronchitis with antibiotics. I will be available as needed for any further cardiac issues. PLAN: 1. Maintain INR between 2-3 once therapeutic discontinue Lovenox. 2. Continue metoprolol with atrial fibrillation rate control. 3. Change IV Lasix to oral Lasix in the next 1-2 days continue treatment for probable asthmatic bronchitis. We will be available as needed for any further cardiac issues. SLAVA DOUGLASS MD Sep 13, 2018 09:13
[2018-09-13] MEDS: VANCOMYCIN HCL 1.25 GM in SOD CHLORIDE 0.9% 250 ML IVPB SCH (09:37)
--- NOTE | 2018-09-13 09:49 | PN ---
DATE: 09/13/2018 SUBJECTIVE: The patient is more responsive, shortness of breath continues. OBJECTIVE: VITAL SIGNS: Temperature 97.9, blood pressure 120/76, O2 saturation 94% on 2 liters nasal cannula. Heart rate in the 80s. HEENT: Atrial fibrillation is well controlled. JVD is not increased. CHEST: Bilateral wheezes, rhonchi. CARDIOVASCULAR: S1, S2 heard, no murmur or rubs. EXTREMITIES: Trace edema. LABORATORY DATA: PT INR is 0.96. Chest x-ray shows infiltrate left lower lung and interstitial david a, mild. IMPRESSION: 1. Acute congestive heart failure. Atrial fibrillation is better controlled, improving. 2. Acute asthmatic bronchitis with left lower lobe pneumonia. 3. Urinary tract infection with Escherichia coli, enterococcus. 4. Seizure disorder. PLAN: We will continue Coumadin, would opt not increase the dose as she is on IV antibiotics, will c ontinue IV Lasix. Recheck labs in a.m. Decrease Solu-Medrol dose. Dictated By: NADINE JAMES MD SR/NTS Conf#: [id number] DID#: [id number] CC: NADINE JAMES MD;*EndCC*
[2018-09-13] MEDS ORDERED: COLLAGENASE 5 GM (UD JAR) TOP PRN (10:30)
[2018-09-13] MEDS: COLLAGENASE 5 GM (UD JAR) TOP SCH (10:36)
[2018-09-13] MEDS: WARFARIN 5 MG TAB GTB SCH (17:28)
[2018-09-13] MEDS: ATORVASTATIN 80 MG TAB PO SCH (23:02)
[2018-09-14] VITALS (12 sets, daily range): BP systolic 104–141; BP diastolic 59–75; PULSE 75–100; RESP 18–20
[2018-09-14] MEDS: ALBUTEROL/IPRATROPIUM (NEB) 3 ML AMP HHN SCH ×6 (01:27→20:28)
[2018-09-14] MEDS: PANTOPRAZOLE (EC) 40 MG TAB PO SCH (05:39)
[2018-09-14] MEDS: METHYLPREDNISOLONE 40 MG INJ IV SCH ×3 (05:39→21:57)
[2018-09-14] MEDS: ASCORBIC ACID 500 MG TAB PO SCH (08:36)
[2018-09-14] MEDS: METOPROLOL 25 MG TAB PO SCH ×3 (08:36→21:59)
[2018-09-14] MEDS: GUAIFENESIN LA 600 MG TABSR PO SCH ×2 (08:36→21:57)
[2018-09-14] MEDS: PRIMIDONE 250 MG TAB PO SCH ×2 (08:36→21:58)
[2018-09-14] MEDS: SULFASALAZINE 500 MG TAB PO SCH ×3 (08:37→21:58)
[2018-09-14] MEDS: PREGABALIN 75 MG CAP PO SCH ×2 (08:37→21:58)
[2018-09-14] MEDS: DOCUSATE SODIUM 100 MG CAP PO SCH ×2 (08:37→21:57)
[2018-09-14] MEDS: FLUOXETINE 10 MG CAP PO SCH (08:38)
[2018-09-14] MEDS: CALCIUM/VITAMIN D (500/200) TAB PO SCH ×2 (08:38→21:58)
[2018-09-14] MEDS: POTASSIUM CHLORIDE (SR) 10 MEQ TAB PO SCH (08:38)
[2018-09-14] MEDS: COLLAGENASE 5 GM (UD JAR) TOP SCH (08:39)
[2018-09-14] MEDS: FUROSEMIDE 40 MG INJ IV SCH (08:39)
[2018-09-14] MEDS: BISACODYL 10 MG SUPP PR SCH (08:39)
[2018-09-14] MEDS: CEFEPIME 1GM/50 ML (PMX) 50 ML IVPB SCH ×2 (08:39→21:57)
[2018-09-14] MEDS: ENOXAPARIN 30 MG/0.3 ML SYG SC SCH (10:30)
--- NOTE | 2018-09-14 15:59 | PN ---
DATE: 09/14/2018 SUBJECTIVE: The patient denies any chest pain. Shortness of breath is improving rather slowly. PHYSICAL EXAMINATION: VITAL SIGNS: Temperature 98.3, blood pressure 123/66, O2 saturation 91% on 2 liters nasal cannula. NECK: JVD is not increased. CHEST: Reveals bilateral inspiratory and expiratory wheezes. HEART: S1, S2 heard. No definite gallops. EXTREMITIES: Decreased edema. Homans negative. LABORATORY DATA: WBC count 12.7, hematocrit 40.3, platelet count is 220,000. Sodium 135, potassium 5, BUN 27, creatinine 0.54. PT/INR is 1.26. IMPRESSION: 1. Acute congestive heart failure with atrial fibrillation, rate well controlled. 2. Acute asthmatic bronchitis. 3. Urinary tract infection with Escherichia coli, Enterococcus. 4. Seizure disorder. 5. Status post recent cerebrovascular accident. PLAN: We will continue Coumadin. Continue intravenous Lasix. Follow up chest x-ray in a.m. Hold p otassium supplements and observe. Dictated By: NADINE JAMES MD, SR/KALE Conf#: [id number] DID#: [id number]
[2018-09-14] MEDS: WARFARIN 5 MG TAB GTB SCH (17:57)
[2018-09-14] MEDS: ATORVASTATIN 80 MG TAB PO SCH (21:58)
[2018-09-15] VITALS (11 sets, daily range): BP systolic 108–135; BP diastolic 65–80; PULSE 81–99; RESP 18–20
[2018-09-15] MEDS: ALBUTEROL/IPRATROPIUM (NEB) 3 ML AMP HHN SCH ×6 (01:38→20:02)
[2018-09-15] MEDS: METHYLPREDNISOLONE 40 MG INJ IV SCH ×3 (05:45→22:24)
[2018-09-15] MEDS: PANTOPRAZOLE (EC) 40 MG TAB PO SCH (05:45)
[2018-09-15] MEDS: ENOXAPARIN 30 MG/0.3 ML SYG SC SCH (08:48)
[2018-09-15] MEDS: COLLAGENASE 5 GM (UD JAR) TOP SCH (08:50)
[2018-09-15] MEDS: BISACODYL 10 MG SUPP PR SCH (08:50)
[2018-09-15] MEDS: DOCUSATE SODIUM 100 MG CAP PO SCH ×2 (08:51→21:42)
[2018-09-15] MEDS: GUAIFENESIN LA 600 MG TABSR PO SCH ×2 (08:51→21:42)
[2018-09-15] MEDS: FUROSEMIDE 40 MG INJ IV SCH (08:54)
[2018-09-15] MEDS: FLUOXETINE 10 MG CAP PO SCH (08:54)
[2018-09-15] MEDS: CEFEPIME 1GM/50 ML (PMX) 50 ML IVPB SCH ×2 (08:54→22:26)
[2018-09-15] MEDS: PRIMIDONE 250 MG TAB PO SCH ×2 (08:55→21:42)
[2018-09-15] MEDS: SULFASALAZINE 500 MG TAB PO SCH ×3 (08:55→21:42)
[2018-09-15] MEDS: ASCORBIC ACID 500 MG TAB PO SCH (08:55)
[2018-09-15] MEDS: METOPROLOL 25 MG TAB PO SCH ×3 (08:55→21:41)
[2018-09-15] MEDS: CALCIUM/VITAMIN D (500/200) TAB PO SCH ×2 (08:55→21:42)
[2018-09-15] MEDS: PREGABALIN 75 MG CAP PO SCH ×2 (08:57→21:49)
--- NOTE | 2018-09-15 16:58 | PN ---
DATE: 09/15/2018 SUBJECTIVE: The patient is very lethargic, having some difficulty swallowing. Speech therapy in [facility]. PHYSICAL EXAMINATION: VITAL SIGNS: Temperature 97.6, blood pressure 126/69, O2 sats 99% on 4 liters nasal cannula. CHEST: Revealed bilateral wheezes, much improved since yesterday. EXTREMITIES: Trace edema. LABORATORY DATA: WBC count of 12.5, hematocrit 42.2. Sodium 134, potassium 4.6, BUN 26, creatinine 0.46. DIAGNOSTIC DATA: Chest x-ray from yesterday shows mild cardiomegaly, pulmonary vascular congestion, improved. IMPRESSION: 1. Atrial fibrillation, well controlled. 2. Acute congestive heart failure. 3. Acute asthmatic bronchitis. 4. Urinary tract infection with Escherichia coli, Enterococcus. 5. Seizure disorder. 6. Concern about acute cerebrovascular accident given the patient's mental status as well as recent dysphagia. PLAN: We will obtain CT scan of the brain today. Decrease Solu-Medrol frequency. Recheck labs in a .m. We will also do neuro checks every shift. Dictated By: NADINE JAMES MD, SR/NTS Conf#: [id number] DID#: [id number]
[2018-09-15] MEDS: WARFARIN 5 MG TAB GTB SCH (17:46)
[2018-09-15] MEDS: PROMETHAZINE (1.25 MG/ML) 5 ML CUP PO PRN (18:11)
[2018-09-15] MEDS: ATORVASTATIN 80 MG TAB PO SCH (21:42)
[2018-09-16] VITALS (11 sets, daily range): BP systolic 90–127; BP diastolic 51–69; PULSE 80–100; RESP 16–21
[2018-09-16] MEDS: ALBUTEROL/IPRATROPIUM (NEB) 3 ML AMP HHN SCH ×6 (02:31→21:56)
[2018-09-16] MEDS: PANTOPRAZOLE (EC) 40 MG TAB PO SCH (06:00)
[2018-09-16] MEDS: CEFEPIME 1GM/50 ML (PMX) 50 ML IVPB SCH ×2 (08:47→20:47)
[2018-09-16] MEDS: BISACODYL 10 MG SUPP PR SCH (08:47)
[2018-09-16] MEDS: PRIMIDONE 250 MG TAB PO SCH ×2 (08:49→20:56)
[2018-09-16] MEDS: FLUOXETINE 10 MG CAP PO SCH (08:49)
[2018-09-16] MEDS: SULFASALAZINE 500 MG TAB PO SCH ×3 (08:49→20:52)
[2018-09-16] MEDS: CALCIUM/VITAMIN D (500/200) TAB PO SCH ×2 (08:49→20:56)
[2018-09-16] MEDS: METOPROLOL 25 MG TAB PO SCH ×3 (08:49→20:55)
[2018-09-16] MEDS: ASCORBIC ACID 500 MG TAB PO SCH (08:49)
[2018-09-16] MEDS: METHYLPREDNISOLONE 40 MG INJ IV SCH ×2 (08:49→20:47)
[2018-09-16] MEDS: FUROSEMIDE 40 MG INJ IV SCH (08:50)
[2018-09-16] MEDS: COLLAGENASE 5 GM (UD JAR) TOP SCH (08:50)
[2018-09-16] MEDS: GUAIFENESIN LA 600 MG TABSR PO SCH ×2 (08:50→20:56)
[2018-09-16] MEDS: DOCUSATE SODIUM 100 MG CAP PO SCH ×2 (08:51→20:52)
[2018-09-16] MEDS: PREGABALIN 75 MG CAP PO SCH ×2 (09:20→20:56)
[2018-09-16] MEDS: ENOXAPARIN 30 MG/0.3 ML SYG SC SCH (09:54)
--- NOTE | 2018-09-16 12:54 | PN ---
DATE: 09/16/2018 SUBJECTIVE: The patient is very lethargic. VITAL SIGNS: Heart rate 78 per minute atrial fibrillation, temperature 98.0, O2 saturation 99% on 4 liters nasal cannula. CHEST EXAM: Reveals few wheezes anteriorly. HEART: S1, S2 with no definite gallops. ABDOMEN: Soft, nontender. No hepatosplenomegaly. EXTREMITIES: Trace edema. LABORATORY DATA: WBC count 12.8, hematocrit 43. Sodium 135, potassium 3.9, BUN 28, creatinine 0.48. PT/INR 1.61. IMPRESSION AND PLAN: 1. Atrial fibrillation, well controlled. 2. Acute congestive heart failure, improving. 3. Acute asthmatic bronchitis, improving. 4. Possible aspiration. 5. Urinary tract infection with Escherichia coli, enterococcus. 6. Seizure disorder. 7. Possible acute cerebrovascular accident (CVA). We will obtain computed tomography (CT) scan of the brain and obtain a neurology consultation by Dr. Tellez. Continue intravenous Lasix for now. Dictated By: NADINE JAMES MD SR/NTS Conf#: [id number] DID#: [id number] CC: NADINE JAMES MD;*EndCC* MTDD
[2018-09-16] MEDS: DEXTROSE 5%-0.225% NACL 1,000 ML IV SCH (14:17)
[2018-09-16] MEDS: WARFARIN 5 MG TAB GTB SCH (16:46)
[2018-09-16] MEDS: ATORVASTATIN 80 MG TAB PO SCH (20:52)
[2018-09-17] VITALS (12 sets, daily range): BP systolic 92–161; BP diastolic 40–60; PULSE 55–121; RESP 17–20
[2018-09-17] MEDS: ALBUTEROL/IPRATROPIUM (NEB) 3 ML AMP HHN SCH ×6 (01:26→20:32)
[2018-09-17] MEDS: PANTOPRAZOLE (EC) 40 MG TAB PO SCH (05:15)
[2018-09-17] MEDS: SULFASALAZINE 500 MG TAB PO SCH ×3 (08:10→22:06)
[2018-09-17] MEDS: DOCUSATE SODIUM 100 MG CAP PO SCH ×2 (08:10→22:06)
[2018-09-17] MEDS: PREGABALIN 75 MG CAP PO SCH ×2 (08:11→22:07)
[2018-09-17] MEDS: CALCIUM/VITAMIN D (500/200) TAB PO SCH ×2 (08:11→22:06)
[2018-09-17] MEDS: ASCORBIC ACID 500 MG TAB PO SCH (08:11)
[2018-09-17] MEDS: METOPROLOL 25 MG TAB PO SCH ×3 (08:11→22:08)
[2018-09-17] MEDS: PRIMIDONE 250 MG TAB PO SCH ×2 (08:11→22:07)
[2018-09-17] MEDS: GUAIFENESIN LA 600 MG TABSR PO SCH ×2 (08:11→22:07)
[2018-09-17] MEDS: FLUOXETINE 10 MG CAP PO SCH (08:11)
[2018-09-17] MEDS: CEFEPIME 1GM/50 ML (PMX) 50 ML IVPB SCH ×2 (08:59→22:06)
[2018-09-17] MEDS ORDERED: BISACODYL 10 MG SUPP PR PRN (09:00)
[2018-09-17] MEDS: COLLAGENASE 5 GM (UD JAR) TOP SCH (09:00)
--- NOTE | 2018-09-17 09:22 | PN ---
DATE: 09/17/2018 SUBJECTIVE: The patient is lethargic, speech therapy evaluation and recommendations greatly apprecia alivia. Recommended n.p.o. VITAL SIGNS: Temperature 98.0, blood pressure 92/40, O2 sat 98%. CHEST: Revealed few wheezes at the bases. HEART: S1, S2 heard with no definite gallops. ABDOMEN: Soft, nontender, no hepatosplenomegaly. EXTREMITIES: Trace edema. GI: 85 intake, output is 1150. LABORATORY DATA: WBC count 18.9, hematocrit 42.7, platelet count is 156,000. Sodium 135, potassium 3.7, BUN 27, creatinine 0.41. CT of the brain shows white matter disease compatible with chronic small vessel ischemia, chronic lac unar infarct in the right internal capsule, left internal capsule, left thalamus. No intracranial he morrhage, mass or acute transcortical infarct. IMPRESSION: 1. Atrial fibrillation, well controlled. 2. Acute congestive heart failure, improving. 3. Acute asthmatic bronchitis, improving. 4. The patient likely aspirating. 5. Urinary tract infection with Escherichia coli, enterococcus. 6. Seizure disorder. Concern about an acute CVA. Have requested neurology consultation with Dr. Valentin john. PLAN: Will start the patient on NG tube feedings, have discussed with the patient's daughter yesterd ay, switch IV Solu-Medrol to prednisone. Repeat urine cultures, aspiration precautions. Dictated By: NADINE JAMES MD, SR/NTS Conf#: [id number] DID#: [id number]
[2018-09-17] MEDS: FUROSEMIDE 40 MG TAB NGT SCH (09:45)
[2018-09-17] MEDS: ENOXAPARIN 30 MG/0.3 ML SYG SC SCH (10:04)
[2018-09-17] MEDS: DEXTROSE 5%-0.225% NACL 1,000 ML IV SCH (14:38)
[2018-09-17] MEDS: predniSONE 10 MG TAB GTB SCH (15:15)
[2018-09-17] MEDS: WARFARIN 5 MG TAB GTB SCH (17:08)
[2018-09-17] MEDS: ACETAMINOPHEN 325 MG TAB PO PRN (17:08)
[2018-09-17] MEDS: PROMETHAZINE (1.25 MG/ML) 5 ML CUP PO PRN (18:22)
[2018-09-17] MEDS: traMADol 50 MG TAB GTB PRN (18:23)
--- NOTE | 2018-09-17 20:49 | HKNOTE ---
DATE OF SERVICE: 09/17/2018 REFERRING PHYSICIAN: Dr. James. Thank you, Dr. James, for asking me to see the patient with you. 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 The patient had a CT scan of her brain, which shows generalized atrophy with deep white matter ischemic change including a righ t cerebellar lacunar infarction in the right internal capsule, left external capsule and left thalamu s. CURRENT MEDICATIONS: 1. Tramadol 50 mg every 6 hours as needed. 2. Prednisone 30 mg twice a day. 3. Lasix 40 mg once a day. 4. Lopressor 37.5 mg 3 times a day. 5. Coumadin 5 mg once a day. 6. Diltiazem once a day. 7. Lyrica 150 mg twice a day. 8. Vitamin C 500 mg once a day. 9. Sulfasalazine 500 mg 3 times a day. 10. Prozac 10 mg once a day. 11. Lovenox 30 mg subcutaneously. 12. Protonix 40 mg once a day. 13. Lipitor 80 mg once a day. 14. Vitamin D once a day. 15. Colace 200 mg once a day. 16. Primidone 250 mg twice a day. 17. Cefepime. 18. Albuterol inhaler every 4 hours as needed. 19. Tylenol 650 mg every 4 hours as needed. 20. Phenergan 6.25 mg 3 times a day. PHYSICAL EXAMINATION: GENERAL: Today, the patient is alert, awake, looks confused, however, can follow simple commands, di fficult for second or third-step commands. CRANIAL NERVES: Cranial nerve II: Pupils equal on both sides, reactive to light. Cranial nerves II I, IV, and : Extraocular muscles are intact for doll's maneuver. Cranial nerve V: Equal sensatio n to face. Cranial nerve VII: Decreased nasolabial fold on the right side. Cranial nerve VIII: De creased hearing bilaterally. Cranial IX and X: Elevates palate. Cranial nerve XI: Elevates should er 5/5. Cranial nerve XII: With straight tongue. MOTOR: Left side scored 4/5, right side scored 1/5. Deep tendon reflex dimensioned bilateral ankle area. Sensation decreased in the right side for light touch. COORDINATION: Could not assess. HEART: S1, S2 audible. ABDOMEN: Soft, relaxed, nondistended, no tenderness. ASSESSMENT AND PLAN: 1. The patient is an 83-year-old status post history of atrial fibrillation with the patient under C oumadin to keep INR between 2 to 3. 2. History of old lacunar infarct, multiple once. We will follow up the patient with MRI for a poss ible new one. 3. Underlying aphasia. We will follow up the patient with speech therapist probably secondary to st roke. 4. Underlying dysphagia. Follow up the patient with swallowing study and switch her to NG tube feed ing from now, probably worsening of her stroke. 5. Possibility of underlying seizure. Follow up the patient with seizure precaution and electroence phalogram. 6. Keep the patient under fall precaution and follow up the patient with physical therapy. Again, thank you, Dr. James, for asking me to see the patient with you. Dictated By: JESUS DAIGLE MD NA/NTS Conf#: [id number] DID#: [id number] CC: NADINE JAMES MD;*EndCC*
[2018-09-17] MEDS: ATORVASTATIN 80 MG TAB PO SCH (22:07)
[2018-09-17] MEDS: PHENOL 1.4% SOLN 180 ML BTL MT PRN (23:54)
[2018-09-18] VITALS (12 sets, daily range): BP systolic 97–169; BP diastolic 55–83; PULSE 82–113; RESP 17–22
[2018-09-18] MEDS: ALBUTEROL/IPRATROPIUM (NEB) 3 ML AMP HHN SCH ×6 (01:58→20:39)
[2018-09-18] MEDS: PANTOPRAZOLE (EC) 40 MG TAB PO SCH (06:26)
[2018-09-18] MEDS: FUROSEMIDE 40 MG TAB NGT SCH (06:27)
[2018-09-18] MEDS: FLUOXETINE 10 MG CAP PO SCH (09:15)
[2018-09-18] MEDS: PRIMIDONE 250 MG TAB PO SCH ×2 (09:15→21:18)
[2018-09-18] MEDS: CEFEPIME 1GM/50 ML (PMX) 50 ML IVPB SCH ×2 (09:15→21:18)
[2018-09-18] MEDS: GUAIFENESIN LA 600 MG TABSR PO SCH (09:15)
[2018-09-18] MEDS: CALCIUM/VITAMIN D (500/200) TAB PO SCH ×2 (09:15→21:19)
[2018-09-18] MEDS: DOCUSATE SODIUM 100 MG CAP PO SCH ×2 (09:15→21:19)
[2018-09-18] MEDS: SULFASALAZINE 500 MG TAB PO SCH ×3 (09:17→21:19)
[2018-09-18] MEDS: ASCORBIC ACID 500 MG TAB PO SCH (09:17)
[2018-09-18] MEDS: METOPROLOL 25 MG TAB PO SCH ×3 (09:17→21:21)
[2018-09-18] MEDS: predniSONE 10 MG TAB GTB SCH (09:17)
[2018-09-18] MEDS: COLLAGENASE 5 GM (UD JAR) TOP SCH (09:17)
[2018-09-18] MEDS: PREGABALIN 75 MG CAP PO SCH ×2 (09:26→21:20)
[2018-09-18] MEDS: ENOXAPARIN 30 MG/0.3 ML SYG SC SCH (09:33)
[2018-09-18] MEDS: PHENOL 1.4% SOLN 180 ML BTL MT PRN (16:37)
[2018-09-18] MEDS: WARFARIN 5 MG TAB GTB SCH (17:55)
--- NOTE | 2018-09-18 21:03 | PN ---
DATE: 09/18/2018 SUBJECTIVE: The patient is very lethargic, on NG tube feedings, presently getting an EEG. Dr. Mckeon' neurology consultation is greatly appreciated. OBJECTIVE: VITAL SIGNS: Temperature 98.7, blood pressure 119/80, O2 saturation 97% on 4 liters nasal cannula. HEENT: tolerating NG tube feedings well. CHEST: Reveals few wheezes anteriorly. HEART: S1, S2 heard, no definite gallops. Heart rate in the 90s, AFib. Rhythm is ____. ABDOMEN: Obese. EXTREMITIES: Decreased edema. Homans signs negative. NEUROLOGIC: Per Dr. Mckeon. IMAGING: Chest x-ray shows bibasilar subsegmental atelectasis versus infiltrates, aortic atheroscler osis. MRI of the brain shows acute lacunar infarct in the right frontoparietal lobes and posterior c orpus callosum. IMPRESSION: 1. Acute cerebrovascular accident involving the right frontal and parietal lobes lacunar infarcts wi th lethargy. 2. Hypokalemia. Potassium 3.1. 3. Urinary tract infection, E. coli and enterococcus. 4. Acute asthmatic bronchitis, possible aspiration. 5. Acute congestive heart failure, improving. 6. Seizure disorder. PLAN: We will repeat the urine cultures. Continue speech therapy recommendations. Continue neurolo gy recommendations per Dr. Mckeon. Patient's condition has declined. We will discuss with the cam prather's daughter regarding her condition. Also, we will discontinue Lovenox. INR is therapeutic. Co ntinue Coumadin. ____ NG tube. Dictated By: NADINE JAMES MD, SR/KALE Conf#: [id number] DID#: [id number]
[2018-09-18] MEDS: ATORVASTATIN 80 MG TAB PO SCH (21:19)
[2018-09-18] MEDS: POTASSIUM CHLORIDE (SR) 10 MEQ TAB NGT SCH (21:19)
[2018-09-18] MEDS: GUAIFENESIN 20 MG/ML 5ML CUP PO SCH (21:39)
[2018-09-18] MEDS ORDERED: LORAZEPAM 2 MG INJ IV ONE (23:30)
[2018-09-19] VITALS (12 sets, daily range): BP systolic 111–131; BP diastolic 62–90; PULSE 64–126; RESP 17–20
--- NOTE | 2018-09-19 01:19 | HKNOTE ---
DATE OF SERVICE: HISTORY OF PRESENT ILLNESS: The patient is an 83-year-old status post stroke in the past, hypertensi on, dyslipidemia, tremor, congestive heart failure, atrial fibrillation, acute asthmatic bronchitis, gait difficulty with multiple lacunar infarction. CURRENT MEDICATIONS: Include: 1. Ultram 50 mg every 6 hours as needed. 2. Prednisone 30 mg daily. 3. Lasix 40 mg once a day. 4. Dulcolax 10 mg as needed. 5. Santyl 1 application topical wound care once a day. 6. Lopressor 37.5 mg once a day. 7. Coumadin 5 mg once a day. 8. Cardizem titrate IV. 9. Sulfasalazine 500 mg 3 times a day. 10. Lyrica 150 mg twice a day. 11. Vitamin C 500 mg once a day. 12. Protonix 10 mg. 13. Prozac 10 mg once a day. 14. Lovenox 60 mg subcutaneous. 15. Protonix 40 mg. 16. Lipitor 80 mg at bedtime. 17. Calcium and vitamin D 1 tablet twice a day. 18. Colace 200 mg twice a day. 19. Primidone 250 mg twice a day. 20. Mucinex 600 mg twice a day. 21. Albuterol every 8 hours. 22. Tylenol 650 mg every 4 hours as needed. 23. Phenergan 6.25 mg t.i.d. PHYSICAL EXAMINATION: GENERAL: Today, the patient is alert, awake, looks confused; however, can follow simple commands, di fficult to follow second or third-step commands. CRANIAL NERVES: Cranial nerve II: Pupils are reactive to light. Cranial nerves III, IV and : Ex traocular muscles are intact for doll's maneuver. Cranial nerve V: Equal sensation to face. Crania l nerve VII: Decreased nasolabial fold on the right side. Cranial nerve VIII: Decreased hearing bi laterally. Cranial IX and X: Elevates palate. Cranial nerve XI: Elevates shoulder 5/5. Cranial n erve XII: With straight tongue. MOTOR: Left side scored 4/5, right side scored 1/5. Sensation decreased on the right side for light touch and temperature. COORDINATION: Could not assess. HEART: Regular rate and rhythm. LUNGS: Equal breath sounds. ABDOMEN: Soft, relaxed, nondistended, no tenderness. ASSESSMENT AND PLAN: 1. The patient is an 83-year-old status post atrial fibrillation in which the patient in Coumadin. 2. History of lacunar infarction. Follow up the patient with MRI. Possibility of underlying seizur e, we ordered for her electroencephalogram, still pending. 3. Keep the patient under fall precaution and physical therapy evaluation. 4. Underlying dysphagia in which the patient is followed by speech therapist for swallowing study, p robably secondary to multiple stroke the patient does have. 5. Underlying aphasia, probably secondary to this Broca's aphasia, probably secondary to the stroke. Follow up the patient with speech therapist as well. Again thank you, Dr. James, for asking me to see the patient with you. Dictated By: JESUS DAIGLE MD NA/NTS Conf#: [id number] DID#: [id number] CC: NADINE JAMES MD;*EndCC*
[2018-09-19] MEDS: ALBUTEROL/IPRATROPIUM (NEB) 3 ML AMP HHN SCH ×6 (01:51→20:26)
[2018-09-19] MEDS ORDERED: LIDOCAINE 1% (MPF) 5 ML VIAL SC ONE ×2 (05:00→05:30)
[2018-09-19] MEDS: PANTOPRAZOLE (EC) 40 MG TAB PO SCH (05:12)
[2018-09-19] MEDS: FUROSEMIDE 40 MG TAB NGT SCH (05:12)
[2018-09-19] MEDS: ASCORBIC ACID 500 MG TAB PO SCH (09:00)
[2018-09-19] MEDS: GUAIFENESIN 20 MG/ML 5ML CUP PO SCH ×2 (09:00→21:43)
[2018-09-19] MEDS: PRIMIDONE 250 MG TAB PO SCH ×2 (09:00→21:11)
[2018-09-19] MEDS: DOCUSATE SODIUM 100 MG CAP PO SCH ×2 (09:00→21:10)
[2018-09-19] MEDS: PREGABALIN 75 MG CAP PO SCH ×2 (09:00→21:11)
[2018-09-19] MEDS: CALCIUM/VITAMIN D (500/200) TAB PO SCH ×2 (09:00→21:12)
[2018-09-19] MEDS: SULFASALAZINE 500 MG TAB PO SCH ×3 (09:00→21:11)
[2018-09-19] MEDS: METOPROLOL 25 MG TAB PO SCH ×3 (09:00→21:12)
[2018-09-19] MEDS: POTASSIUM CHLORIDE (SR) 10 MEQ TAB NGT SCH ×2 (09:00→21:11)
[2018-09-19] MEDS: CEFEPIME 1GM/50 ML (PMX) 50 ML IVPB SCH ×2 (10:18→21:13)
[2018-09-19] MEDS: COLLAGENASE 5 GM (UD JAR) TOP SCH (10:18)
--- NOTE | 2018-09-19 15:11 | HKNOTE ---
DATE OF SERVICE: The patient with a stroke, hypertension, dysphagia. EEG done using 10-20 International electrode sys tem. FINDING: Bilateral occipital hemisphere showed 8 Hz, medium sized, low amplitude, asymmetric bilater al. Some electromyogram artifact is recorded. Moving electrode artifact is recorded. Photic stimul ation done did not elicit a drive. No epileptiform discharge or seizure activity is recorded. IMPRESSION: This is a technically difficult electroencephalogram with movement artifact and electrom yogram artifact; however, no epileptiform discharge or seizure activity is recorded. Followup EEG ma y be needed if clinically indicated. Dictated By: JESUS DAIGLE MD NA/NTS Conf#: [id number] DID#: [id number]
[2018-09-19] MEDS: PHENOL 1.4% SOLN 180 ML BTL MT PRN (15:22)
[2018-09-19] MEDS: morphine 2 MG INJ IV PRN ×2 (16:07→17:53)
[2018-09-19] MEDS: FLUOXETINE 10 MG CAP PO SCH (16:14)
[2018-09-19] MEDS: predniSONE 10 MG TAB GTB SCH (16:15)
--- NOTE | 2018-09-19 16:41 | PN ---
DATE: 09/19/2018 SUBJECTIVE: The patient is lethargic, has congested cough, in mild pain. NG tube had to be replaced , x-ray for placement noted. NG tube is in place. PHYSICAL EXAMINATION: VITAL SIGNS: Temperature 99.7, blood pressure 116/75, O2 saturation 90% on 4 liters nasal cannula. CHEST: Revealed occasional wheezes. HEART: S1, S2 heard. No definite gallops. EXTREMITIES: Trace edema, cold. LABORATORY DATA: WBC count 15.5, hematocrit 42.3, platelet count 151,000. Potassium 3.4, BUN 22, cr eatinine 0.39. Repeat urine culture is pending. INR 1.26 after 5 mg of Coumadin yesterday. IMPRESSION: 1. Acute cerebrovascular accident involving the right frontal and parietal lobes lacunar infarcts wi th lethargy. 2. Hypokalemia. 3. Status post urinary tract infection with Enterococcus and Escherichia coli. 4. Acute asthmatic bronchitis. The patient is likely aspirating. 5. Seizure disorder. PLAN: We will decrease the dose of prednisone, increase the dose of Coumadin. I have discussed with the patient's family who preferred to have a PEG instead of an NG tube. We will request Dr. Montalvo regarding the same. Her overall prognosis is guarded. Dr. Mckeon' neurology consultation recommendation is greatly appreciated. We will follow his luz mmendations. EEG is pending. Dictated By: NADINE JAMES MD, SR/NTS Conf#: [id number] DID#: [id number]
[2018-09-19] MEDS ORDERED: WARFARIN 3 MG TAB NGT SCH (17:00)
--- NOTE | 2018-09-19 17:13 | CONS ---
DATE OF ADMISSION: 09/06/2018 DATE OF CONSULTATION: HISTORY OF PRESENT ILLNESS: The patient is 83 years old lady with a past medical history of hyperten kuldip, dyslipidemia, tremor, congestive heart failure, atrial fibrillation, acute asthmatic bronchitis , gait difficulty, lacunar infarction. MEDICATIONS: Per reconcile sheet. 1. Ultram 50 mg every 6 hours. 2. Prednisone 30 mg once a day. 3. Lasix 40 mg once a day. 4. Dulcolax 10 mg as needed. 5. Lopressor at 37.5 mg once a day. 6. Coumadin 5 mg once a day. 7. Cardizem titrate. 8. Lyrica 150 mg twice a day. 9. Protonix 10 mg once a day. 10. Prozac 10 mg once a day. 11. Lovenox 60 mg subcutaneous once a day. 12. Protonix is discontinued for INR between 2 to 3. 13. Lipitor 80 mg once a day. 14. Calcium and vitamin D twice a day. 15. Colace 200 mg once a day. 16. Primidone 250 mg twice a day. 17. Albuterol inhaler every 8 hours. 18. Tylenol 650 mg. 19. Phenergan 6.25 mg 3 times a day. PHYSICAL EXAMINATION: GENERAL: Today, the patient is alert, awake, can follow simple commands; however can have difficulty follow complex commands second or third step. CRANIAL NERVES: Cranial nerve II: Pupils are equal on both sides, reactive to light. Cranial nerve s III, IV and : Extraocular muscles are intact without nystagmus. Cranial V: Equal sensation to face. Cranial nerve VII: Decreased nasolabial fold on the right side. Cranial nerve VIII: Decreas ed hearing bilaterally. Cranial nerve IX and X: Elevates palate. Cranial nerve XI: Elevates shoul jessica 5/5. Cranial nerve XII: With straight tongue. MOTOR: Left side 4/5, right side is 1/5. Sensation decreased on the right side for light touch and temperature. COORDINATION: Could not assess. HEART: Regular rate and rhythm. LUNGS: Equal breath sounds. ABDOMEN: Soft, relaxed, nondistended, nontender. ASSESSMENT AND PLAN: 1. The patient is an 83-year-old status post atrial fibrillation in which the patient is under Couma din and we will keep INR between 2 to 3 and we will hold the Lovenox when her INR is above 2. 2. History of lacunar infarction, in which the MRI showed acute lacunar infarction in the right fron toparietal lobe and posterior corpus callosum with deep white matter ischemic change seen as well as the basal ganglia, thalamus and jessica, in which the patient is under treatment of the Coumadin. 3. Underlying dysphagia in which the patient is followed by speech therapist for swallowing study to evaluate for G-tube feeding. 4. Underlying aphasia, probably secondary to the multiple strokes the patient has. 5. We will keep the patient under fall precaution and physical therapy. Again, thank you, Dr. James, for asking me to see the patient with you. Dictated By: JSEUS DAIGLE MD NA/NTS Conf#: [id number] DID#: [id number] CC: NADINE JAMES MD;*EndCC*
--- NOTE | 2018-09-19 18:11 | CONS ---
DATE OF ADMISSION: 09/06/2018 DATE OF CONSULTATION: REQUESTING PHYSICIAN: Dr. Rj James. HISTORY OF PRESENT ILLNESS: The patient is an 83-year-old female with a history of dementia, was adm itted from residential for shortness of breath. 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 PAST MEDICAL HISTORY: Dementia, seizure disorder, multiple CVAs. MEDICATIONS: All reviewed. REVIEW OF SYSTEMS: Unable to do it. PHYSICAL EXAMINATION: VITAL SIGNS: Stable. HEENT: Unremarkable. NECK: Supple, no thyromegaly, no lymphadenopathy. CARDIOVASCULAR: No murmur, gallop or click. LUNGS: Clear. ABDOMEN: Benign. EXTREMITIES: No edema. CENTRAL NERVOUS SYSTEM: The patient is . IMPRESSION: 1. Dysphagia. 2. Cerebrovascular accident. 3. Escherichia coli infection. 4. Bronchitis. 5. Seizure disorder. 6. Atrial fibrillation. PLAN: Proceed with a G-tube. Discussed with the patient and has agreed. We will hold off on antico agulant for the time being and INR is not elevated. Dictated By: ARMANI CAMPA MD PJ/NTS Conf#: [id number] DID#: [id number] CC: RJ JAMES MD;*EndCC*
[2018-09-19] MEDS: ATORVASTATIN 80 MG TAB PO SCH (21:12)
[2018-09-19] MEDS: traMADol 50 MG TAB GTB PRN (21:13)
[2018-09-20] VITALS (20 sets, daily range): BP systolic 73–127; BP diastolic 42–77; PULSE 63–111; RESP 16–27
[2018-09-20] MEDS: ALBUTEROL/IPRATROPIUM (NEB) 3 ML AMP HHN SCH ×6 (01:55→20:18)
[2018-09-20] MEDS: FUROSEMIDE 40 MG TAB NGT SCH (05:20)
[2018-09-20] MEDS: PANTOPRAZOLE (EC) 40 MG TAB PO SCH (05:20)
[2018-09-20] MEDS: CEFEPIME 1GM/50 ML (PMX) 50 ML IVPB SCH (08:53)
[2018-09-20] MEDS: PRIMIDONE 250 MG TAB PO SCH ×2 (08:54→22:49)
[2018-09-20] MEDS: POTASSIUM CHLORIDE (SR) 10 MEQ TAB NGT SCH ×2 (08:54→22:50)
[2018-09-20] MEDS: CALCIUM/VITAMIN D (500/200) TAB PO SCH ×2 (08:54→22:50)
[2018-09-20] MEDS: SULFASALAZINE 500 MG TAB PO SCH ×3 (08:54→22:50)
[2018-09-20] MEDS: predniSONE 10 MG TAB GTB SCH (08:54)
[2018-09-20] MEDS: ASCORBIC ACID 500 MG TAB PO SCH (08:54)
[2018-09-20] MEDS: FLUOXETINE 10 MG CAP PO SCH (08:55)
[2018-09-20] MEDS: METOPROLOL 25 MG TAB PO SCH ×3 (08:55→22:51)
[2018-09-20] MEDS: DOCUSATE SODIUM 100 MG CAP PO SCH ×2 (08:55→22:48)
[2018-09-20] MEDS: GUAIFENESIN 20 MG/ML 5ML CUP PO SCH ×2 (08:56→22:48)
[2018-09-20] MEDS: COLLAGENASE 5 GM (UD JAR) TOP SCH (08:56)
[2018-09-20] MEDS: PREGABALIN 75 MG CAP PO SCH ×2 (08:59→22:49)
[2018-09-20] MEDS ORDERED: FUROSEMIDE 20 MG INJ IV ONE (09:30)
--- NOTE | 2018-09-20 09:47 | PN ---
DATE: 09/20/2018 SUBJECTIVE: The patient is lethargic, slightly more responsive than yesterday, moderately congested tolerating the NG tube feedings. VITAL SIGNS: Temperature 98.4, blood pressure 124/71, O2 saturation 98% on 4 liters nasal cannula. CHEST: Revealed bilateral crackles. HEART: S1, S2 heard. No gallops. EXTREMITIES: No edema. LABORATORY DATA: WBC count 7.6, hematocrit 39.6, platelet count 112,000. Sodium 133, potassium 3.8. PT/INR 1.44. Dr. Montalvo's GI consultation and recommendation greatly appreciated. IMPRESSION: 1. Acute cerebrovascular accident involving the right frontal and parietal lobes . 2. Status post urinary tract infection with Escherichia coli and enterococcus. 3. Asthmatic bronchitis with recurrent aspiration. 4. Seizure disorder. PLAN: Will continue Coumadin; hold off on Lovenox for now as she is going for PEG placement today. Recheck PT, INR tomorrow. We will give Coumadin 7.5 mg today. Recheck PT, INR tomorrow. Her overal l prognosis is guarded. Dictated By: NADINE JAMES MD SR/NTS Conf#: [id number] DID#: [id number]
--- NOTE | 2018-09-20 15:17 | PREAC ---
Date/Time of Note Date/Time of Note DATE: 09/20/18 TIME: 15:16 Anesthesia Eval and Record Evaluation Time Pre-Procedure Interview DATE: 09/20/18 TIME: 15:16 Age 83 Sex female NPO: 8 hrs Preoperative diagnosis DYSPHAGIA, FTT Planned procedure EGD WITH G TUBE PLACE Past Medical History Past Medical History: Includes Cardio: HTN, CHF Neuro: Seizure disorder Renal: ESRD on dialysis Surgery & Anesthesia Issues No known issue Meds Anticoagulation: Yes Beta Christopher within 24 hr: Yes Reported Medications Na Phos,M-B/Na Phos,Di-Ba (Fleet Enema Extra) 230 Ml Enema, 1 APPLIC RC Q2D, ENEMA 09/06/18 Bisacodyl* (Bisacodyl*) 10 Mg Supp, 10 MG DE DAILY, SUPP 09/06/18 Fluoxetine Hcl* (Fluoxetine Hcl*) 10 Mg Tablet, 10 MG PO DAILY, TAB 09/06/18 Magnesium Hydroxide* (Milk Of Magnesia*) 400 Mg/5 Ml Oral.susp, 30 ML PO DAILY, ML 09/06/18 Calcium Carbonate/Vitamin D3 (Calcium 500 + Vit D 200 Tablet) 1 Each Tablet, 1 EACH PO BID, TAB 09/06/18 Guaifenesin (Guaifenesin) 600 Mg Tablet.sa, 600 MG PO BID, TAB END DATE 09/08/18 09/06/18 Sulfasalazine* (Sulfazine*) 500 Mg Tablet, 500 MG PO TID, TAB 09/06/18 Ferrous Sulfate* (Ferrous Sulfate*) 325 Mg Tabec, 325 MG PO TID, TAB 09/06/18 Amino Acids/Protein Hydrolys (PRO-STAT LIQUID) 30 Ml Liquid.pkt, 30 ML PO TID 09/06/18 Metoprolol Tartrate* (Lopressor*) 25 Mg Tab, 25 MG PO BID PRN for HOLD IF SBP<110, #60 TAB 09/06/18 Hydralazine Hcl* (Hydralazine Hcl*) 25 Mg Tab, 25 MG PO QID PRN for FOR SBP>160, #60 TAB 09/06/18 Folic Acid* (Folic Acid*) 1 Mg Tablet, 1 MG PO DAILY, TAB 09/06/18 Ergocalciferol (Vitamin D2) (VITAMIN D2) 50,000 Unit Capsule, 95689 UNIT PO Q MON, CAP 09/06/18 Cyanocobalamin* (Vitamin B-12*) 1,000 Mcg Tablet.sa, 1000 MCG PO DAILY, TAB 09/06/18 Atorvastatin* (Atorvastatin*) 80 Mg Tablet, 80 MG PO QHS, #30 TAB 09/06/18 Amlodipine Besylate* (Norvasc*) 5 Mg Tablet, 5 MG PO DAILY, TAB HOLD IF SBP<110 09/06/18 Primidone* (Mysoline*) 250 Mg Tablet, 250 MG PO BID, TAB 09/06/18 Pregabalin* (Lyrica*) 75 Mg Capsule, 150 MG PO BID, CAP 09/06/18 Prednisone* (Prednisone*) 5 Mg Tab, 5 MG PO DAILY, TAB 09/06/18 Acetaminophen* (Tylenol*) 325 Mg Tablet, 650 MG PO Q4H PRN for PAIN LEVEL 1- 5/10, TAB 09/06/18 Multivitamin with Minerals (Multivitamins with Minerals) 1 Each Tablet, 1 EACH PO DAILY, TAB 09/06/18 Docusate Sodium* (Colace*) 100 Mg Capsule, 200 MG PO BID, #60 CAP 09/06/18 Ascorbic Acid (Vitamin C) 500 Mg Tab, 500 MG PO DAILY, TAB 09/06/18 Current Medications Acetaminophen (Tylenol Tab) 650 mg Q4H PRN PO PAIN LEVEL 1-5/10 Last administered on 09/17/18at 17:08; Admin Dose 650 MG; Start 09/06/18 at 15:30 Ascorbic Acid (Vitamin C) 500 mg DAILY PO Last administered on 09/20/18 08:54; Admin Dose 500 MG; Start 09/07/18 at 09:00 Atorvastatin Calcium (Lipitor) 80 mg QHS PO Last administered on 09/19/18at 21:12; Admin Dose 80 MG; Start 09/06/18 at 21:00 Calcium/Vitamin D (Oyster Shell/ Vit-D (500/200)) 1 tab BID PO Last administered on 09/20/18 08:54; Admin Dose 1 TAB; Start 09/06/18 at 21:00 Docusate Sodium (Colace) 200 mg BID PO Last administered on 09/20/18 08:55; Admin Dose 200 MG; Start 09/06/18 at 21:00 Fluoxetine HCl (Prozac) 10 mg DAILY PO Last administered on 09/20/18 08:55; Admin Dose 10 MG; Start 09/07/18 at 09:00 Primidone (Mysoline) 250 mg BID PO Last administered on 09/20/18 08:54; Admin Dose 250 MG; Start 09/06/18 at 21:00 Pantoprazole (Protonix Tab) 40 mg DAILY@06 PO Last administered on 09/20/18 05:20; Admin Dose 40 MG; Start 09/07/18 at 06:00 Albuterol/ Ipratropium (Duoneb) 3 ml Q4H RESP THERAPY HHN Last administered on 09/20/18 13:19; Admin Dose 3 ML; Start 09/06/18 at 17:00 Promethazine HCl (Phenergan Liq) 6.25 mg TID PRN PO Cough Last administered on 09/17/18 18:22; Admin Dose 6.25 MG; Start 09/06/18 at 15:30 Albuterol/ Ipratropium (Duoneb) 3 ml Q4H RESP THERAPY PRN HHN SHORTNESS OF BREATH; Start 09/06/18 at 16:00 Pregabalin (Lyrica) 150 mg BID PO Last administered on 09/20/18 08:59; Admin Dose 150 MG; Start 09/07/18 at 10:30 Sulfasalazine (Azulfidine) 500 mg TID PO Last administered on 09/20/18 13:32; Admin Dose 500 MG; Start 09/07/18 at 13:00 Diltiazem HCl 125 ml @ 5 mls/hr TITRATE IV Last administered on 09/12/18 08:32; Admin Dose 5 MLS/HR; Start 09/09/18 at 11:30 Metoprolol Tartrate (Lopressor) 37.5 mg TID PO Last administered on 09/20/18 13:34; Admin Dose 37.5 MG; Start 09/12/18 at 13:00 Collagenase (Santyl) 1 applic DAILY TOP Last administered on 09/20/18 08:56; Admin Dose 1 APPLIC; Start 09/13/18 at 10:30 Collagenase (Santyl) 1 applic PRN PRN TOP WOUND CARE; Start 09/13/18 at 10:30 Bisacodyl (Dulcolax Supp) 10 mg DAILY PRN DE constipation; Start 09/17/18 at 09:00 Furosemide (Lasix) 40 mg DAILY@0600 NGT Last administered on 09/20/18at 05:20; Admin Dose 40 MG; Start 09/17/18 at 09:45 Tramadol HCl (Ultram) 50 mg Q6H PRN GTB MODERATE PAIN LEVEL 4-6 Last administered on 09/19/18 21:13; Admin Dose 50 MG; Start 09/17/18 at 18:00 Phenol (Chloraseptic Throat [place]) 2 spray Q2H PRN MT SORE THROAT Last ad ministered on 09/19/18at 15:22; Admin Dose 2 SPRAY; Start 09/17/18 at 21:00 Prednisone (Prednisone) 20 mg DAILY GTB Last administered on 09/20/18 08:54; Admin Dose 20 MG; Start 09/19/18 at 09:00 Potassium Chloride (Klor-Con 10) 30 meq BID NGT Last administered on 09/20/18 08:54; Admin Dose 30 MEQ; Start 09/18/18 at 21:00 Guaifenesin (Robitussin Liquid Cup) 400 mg BID PO Last administered on 08:56; Admin Dose 400 MG; Start 09/18/18 at 21:00 Morphine Sulfate (morphine) 2 mg Q3H PRN IV SEVERE PAIN LEVEL 7-10 Last administered on 09/19/18at 17:53; Admin Dose 2 MG; Start 09/19/18 at 16:00 Warfarin Sodium (Coumadin) 7.5 mg ONCE@17 ONCE GTB ; Start 09/20/18 at 17:00; Stop 09/20/18 at 17:01 Meds reviewed: Yes Allergies Coded Allergies: No Known Allergy (Unverified , 09/06/18) Allergies Reviewed: Yes Labs/Studies Labs Reviewed: Reviewed by anesthesiologist Result Diagram: 09/20/18 0600 09/20/18 0600 Laboratory Tests 09/20/18 06:00 test: N/A Pre-procedure Exam Last vitals Vital Signs Date Temp Pulse Resp B/P (MAP) Pulse Ox O2 O2 Flow FiO2 Time Delivery Rate 09/20/18 4.0 13:38 09/20/18 80 20 Nasal 13:20 Cannula 09/20/18 98.2 127/65 92 11:26 (85) 09/16/18 98 13:13 Airway: Adequate mouth opening, Adequate thyromental dist Mallampati: Mallampati II Teeth: Normal Lung: Normal Heart: Normal ASA Physical Status ASA physical status: 3 Emergency: None Planned Anesthetic General/MAC: MAC Planned Pain Management Parenteral pain med Pre-operative Attestations Prior to commencing anesthesia and surgery, the patient was re-evaluated, there was verification of: *The patient's identity *The results of appropriate recent lab work and preoperative vital signs *The above evaluation not changing prior to induction *Anesthetic plan, risk benefits, alternative and complications discussed with patient/family; questions answered; patient/family understands, accepts and wishes to proceed. WALI PATEL Sep 20, 2018 15:17
[2018-09-20] MEDS ORDERED: CEFAZOLIN 1 GM/50 ML (PMX) 50 ML IVPB ONE (15:39)
[2018-09-20] MEDS ORDERED: PROPOFOL 20 ML ONE (16:08)
[2018-09-20] MEDS ORDERED: LIDOCAINE 2% (SDV) 5 ML INJ ONE (16:09)
[2018-09-20] MEDS ORDERED: WARFARIN 7.5 MG TAB GTB ONE (17:00)
--- NOTE | 2018-09-20 17:01 | PAC ---
Date/Time of Note Date/Time of Note DATE: 09/20/18 TIME: 17:01 Post-Anesthesia Notes Post-Anesthesia Note Last documented vital signs Vital Signs Date Temp Pulse Resp B/P (MAP) Pulse Ox O2 O2 Flow FiO2 Time Delivery Rate 09/20/18 98.3 88 129/71 97 16:50 09/20/18 Nasal 5 15:57 Cannula 09/20/18 20 13:20 09/20/18 98.2 127/65 92 11:26 (85) 09/16/18 98 13:13 Activity: WNL Respiratory function: WNL Cardiovascular function: WNL Mental status: Baseline Pain reasonably controlled: Yes Hydration appropriate: Yes Nausea/Vomiting absent: Yes WALI PATEL Sep 20, 2018 17:01
[2018-09-20] MEDS: morphine 2 MG INJ IV PRN (20:33)
[2018-09-20] MEDS: ATORVASTATIN 80 MG TAB PO SCH (22:50)
--- NOTE | 2018-09-20 23:06 | HKNOTE ---
DATE OF SERVICE: HISTORY OF PRESENT ILLNESS: The patient is an 83-year-old lady who have multiple medical problems in the form of multiple strokes in which the patient is under Coumadin treatment, hypertension, dyslipi demia, congestive heart failure, atrial fibrillation, acute bronchitis, possibility of seizure activi ty in which the patient is under Lyrica 150 mg twice a day. However, her EEG does not show seizure a ctivity, but we will keep the patient under Lyrica from now and keep the patient under seizure precau tion, and we can follow out the patient in an outpatient clinic for more evaluation if the patient ne ed to escalate her medication or add another treatment. MEDICATIONS: The patient's current medication include: 1. Coumadin 7.5 mg. Keep the INR between 2 to 3. 2. Morphine 2 mg every 3 hours as needed. 3. Prednisone 20 mg once a day. 4. Tramadol 50 mg every 6 hours. 5. Lasix 40 mg once a day. 6. Lyrica 150 mg twice a day. 7. Prozac 10 mg once a day. 8. Protonix 40 mg once a day. 9. Lipitor 80 mg once at night. 10. Primidone 250 mg twice a day. PHYSICAL EXAMINATION: GENERAL: The patient is alert, awake, follows simple commands, still confused. CRANIAL NERVES: Cranial nerve II: Pupils equal, reactive to light. Cranial III, IV and : Extrao cular muscles intact. Cranial nerve V: Equal sensation to face. Cranial nerve : Symmetrical fac e. Cranial nerve VII: Decreased nasolabial fold on the right side. Cranial nerve VIII: Decreased hearing bilaterally. Cranial nerve IX, X, and XI: Elevates shoulder 5/5. Cranial nerve XII: Strai ght tongue. MOTOR: Left side is 4/5. Right side is 1/5. SENSATION: Decreased on the right side for light touch and temperature. COORDINATION: Could not assess. HEART: Regular rate and rhythm. LUNGS: Equal breath sounds. ABDOMEN: Soft, relaxed, nondistended. No tenderness. ASSESSMENT AND PLAN: 1. The patient is an 83-year-old with a history of stroke. We will continue the patient on Coumadin and keep the INR between 2 to 3. 2. Underlying seizure. We will keep the patient on Lyrica 150 mg twice a day. The patient is alrea dy on primidone as well, which is good for essential tremor as well as seizure. So I would not add f or her anymore seizure medication; however, we can follow as an outpatient clinic for adjustment of h er dose. 3. Underlying dysphagia. Probably secondary to multiple strokes in which the patient is followed by GI consult. 4. 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 5. Keep the patient under fall precaution and seizure precaution from now. Dictated By: JESUS DAIGLE MD NA/NTS Conf#: [id number] DID#: [id number]
[2018-09-21] VITALS (12 sets, daily range): BP systolic 94–153; BP diastolic 52–72; PULSE 76–105; RESP 16–22
[2018-09-21] MEDS: ALBUTEROL/IPRATROPIUM (NEB) 3 ML AMP HHN SCH ×6 (00:39→20:09)
[2018-09-21] MEDS: PANTOPRAZOLE (EC) 40 MG TAB PO SCH (05:11)
[2018-09-21] MEDS: FUROSEMIDE 40 MG TAB NGT SCH (05:12)
--- NOTE | 2018-09-21 07:58 | CONS ---
Assessment/Plan Assessment/Plan Hospital Course (Demo Recall) 83 yo female 1. Dysphagia. -s/p PEG 09/20 2. Cerebrovascular accident. 3. Escherichia coli infection. 4. Bronchitis. 5. Seizure disorder. 6. Atrial fibrillation. PLAN: Continue with tube feeds, monitor residuals q 4 hours, titrate to goal if residuals less than 100cc. Abdominal binder at all times Pt examined and plan of care discussed with Dr. Montalvo Consultation Date/Type/Reason Admit Date/Time Sep 06, 2018 at 12:46 Initial Consult Date 09/11/18 Requesting Provider: NADINE JAMES MD Date/Time of Note DATE: 09/21/18 TIME: 07:55 24 HR Interval Summary Free Text/Dictation Tolerating tube feeds at 30cc Exam/Review of Systems Exam Vitals Vital Signs Date Temp Pulse Resp B/P (MAP) Pulse Ox O2 O2 Flow FiO2 Time Delivery Rate 09/21/18 98.6 105 16 120/61 96 07:10 (80) 09/21/18 Nasal 3.0 04:42 Cannula Intake and Output 09/20/18 09/20/18 09/21/18 1515:00 23:00 07:00 IntakeIntake Total 50 ml 490 ml OutputOutput Total 600 ml BalanceBalance 50 ml -110 ml Constitutional: other (asleep, easily arousable) Eyes: nl sclera Respiratory: crackles/rales Cardiovascular: regular rate and rhythm Gastrointestinal: soft, other (No PTP, abd binder in place) Extremities: edema (trace) Results Result Diagram: 09/21/18 0509 09/21/18 0509 Results 24hrs Laboratory Tests Test 09/21/18 05:09 White Blood Count 15.9 H Red Blood Count 4.78 Hemoglobin 12.2 Hematocrit 38.3 Mean Corpuscular Volume 80.1 L Mean Corpuscular Hemoglobin 25.5 L Mean Corpuscular Hemoglobin Concent 31.9 L Red Cell Distribution Width 21.9 H Platelet Count 145 Mean Platelet Volume 11.3 H Immature Granulocytes % 1.600 H Neutrophils % 75.9 Lymphocytes % 10.6 L Monocytes % 11.1 H Eosinophils % 0.6 Basophils % 0.2 Nucleated Red Blood Cells % 0.0 Immature Granulocytes # 0.250 H Neutrophils # 12.1 H Lymphocytes # 1.7 Monocytes # 1.8 H Eosinophils # 0.1 Basophils # 0.0 Nucleated Red Blood Cells # 0.0 Prothrombin Time 21.7 #H Prothrombin Time Ratio 1.7 INR International Normalized Ratio 1.88 Sodium Level 134 L Potassium Level 4.6 Chloride Level 90 L Carbon Dioxide Level 38 H Anion Gap 6 Blood Urea Nitrogen 16 Creatinine 0.37 L Est Glomerular Filtrat Rate mL/min Glucose Level 123 Calcium Level 9.2 Medications Medication Current Medications Acetaminophen (Tylenol Tab) 650 mg Q4H PRN PO PAIN LEVEL 1-5/10 Last administered on 09/17/18 17:08; Admin Dose 650 MG; Start 09/06/18 at 15:30 Ascorbic Acid (Vitamin C) 500 mg DAILY PO Last administered on 09/20/18 08:54; Admin Dose 500 MG; Start 09/07/18 at 09:00 Atorvastatin Calcium (Lipitor) 80 mg QHS PO Last administered on 09/20/18 22:5 0; Admin Dose 80 MG; Start 09/06/18 at 21:00 Calcium/Vitamin D (Oyster Shell/ Vit-D (500/200)) 1 tab BID PO Last administered on 09/20/18 22:50; Admin Dose 1 TAB; Start 09/06/18 at 21:00 Docusate Sodium (Colace) 200 mg BID PO Last administered on 09/20/18 22:48; Admin Dose 200 MG; Start 09/06/18 at 21:00 Fluoxetine HCl (Prozac) 10 mg DAILY PO Last administered on 09/20/18 08:55; Admin Dose 10 MG; Start 09/07/18 at 09:00 Primidone (Mysoline) 250 mg BID PO Last administered on 09/20/18 22:49; Admin Dose 250 MG; Start 09/06/18 at 21:00 Pantoprazole (Protonix Tab) 40 mg DAILY@06 PO Last administered on 09/21/18 05:11; Admin Dose 40 MG; Start 09/07/18 at 06:00 Albuterol/ Ipratropium (Duoneb) 3 ml Q4H RESP THERAPY HHN Last administered on 09/21/18 04:42; Admin Dose 3 ML; Start 09/06/18 at 17:00 Promethazine HCl (Phenergan Liq) 6.25 mg TID PRN PO Cough Last administered on 09/17/18 18:22; Admin Dose 6.25 MG; Start 09/06/18 at 15:30 Albuterol/ Ipratropium (Duoneb) 3 ml Q4H RESP THERAPY PRN HHN SHORTNESS OF BREATH; Start 09/06/18 at 16:00 Pregabalin (Lyrica) 150 mg BID PO Last administered on 09/20/18 22:49; Admin Dose 150 MG; Start 09/07/18 at 10:30 Sulfasalazine (Azulfidine) 500 mg TID PO Last administered on 09/20/18 22:50; Admin Dose 500 MG; Start 09/07/18 at 13:00 Diltiazem HCl 125 ml @ 5 mls/hr TITRATE IV Last administered on 09/12/18 08:32; Admin Dose 5 MLS/HR; Start 09/09/18 at 11:30 Metoprolol Tartrate (Lopressor) 37.5 mg TID PO Last administered on 09/20/18 22:51; Admin Dose 37.5 MG; Start 09/12/18 at 13:00 Collagenase (Santyl) 1 applic DAILY TOP Last administered on 09/20/18 08:56; Admin Dose 1 APPLIC; Start 09/13/18 at 10:30 Collagenase (Santyl) 1 applic PRN PRN TOP WOUND CARE; Start 09/13/18 at 10:30 Bisacodyl (Dulcolax Supp) 10 mg DAILY PRN [place] constipation; Start 09/17/18 at 09:00 Furosemide (Lasix) 40 mg DAILY@0600 NGT Last administered on 09/21/18 05:12; Admin Dose 40 MG; Start 09/17/18 at 09:45 Tramadol HCl (Ultram) 50 mg Q6H PRN GTB MODERATE PAIN LEVEL 4-6 Last administered on 09/19/18 21:13; Admin Dose 50 MG; Start 09/17/18 at 18:00 Phenol (Chloraseptic Throat [place]) 2 spray Q2H PRN MT SORE THROAT Last administered on 09/19/18 15:22; Admin Dose 2 SPRAY; Start 09/17/18 at 21:00 Prednisone (Prednisone) 20 mg DAILY GTB Last administered on 09/20/18 08:54; Admin Dose 20 MG; Start 09/19/18 at 09:00 Potassium Chloride (Klor-Con 10) 30 meq BID NGT Last administered on 09/20/18at 22:50; Admin Dose 30 MEQ; Start 09/18/18 at 21:00 Guaifenesin (Robitussin Liquid Cup) 400 mg BID PO Last administered on 09/20/18at 22:48; Admin Dose 400 MG; Start 09/18/18 at 21:00 Morphine Sulfate (morphine) 2 mg Q3H PRN IV SEVERE PAIN LEVEL 7-10 Last administered on 09/20/18at 20:33; Admin Dose 2 MG; Start 09/19/18 at 16:00 IV Flush (NS 10 ml) 10 ml PRN PRN IV IV PROTOCOL; Start 09/20/18 at 18:00 SUSAN SAEED Sep 21, 2018 07:58
[2018-09-21] MEDS: DOCUSATE SODIUM 100 MG CAP PO SCH ×2 (08:20→21:08)
[2018-09-21] MEDS: PREGABALIN 75 MG CAP PO SCH ×2 (08:21→21:22)
[2018-09-21] MEDS: METOPROLOL 25 MG TAB PO SCH ×3 (08:21→21:09)
[2018-09-21] MEDS: predniSONE 10 MG TAB GTB SCH (08:21)
[2018-09-21] MEDS: CALCIUM/VITAMIN D (500/200) TAB PO SCH ×2 (08:21→21:08)
[2018-09-21] MEDS: PRIMIDONE 250 MG TAB PO SCH ×2 (08:21→21:09)
[2018-09-21] MEDS: SULFASALAZINE 500 MG TAB PO SCH ×3 (08:21→21:22)
[2018-09-21] MEDS: FLUOXETINE 10 MG CAP PO SCH (08:22)
[2018-09-21] MEDS: POTASSIUM CHLORIDE (SR) 10 MEQ TAB NGT SCH ×2 (08:22→21:08)
[2018-09-21] MEDS: GUAIFENESIN 20 MG/ML 5ML CUP PO SCH ×2 (08:22→21:10)
[2018-09-21] MEDS: ASCORBIC ACID 500 MG TAB PO SCH (08:22)
[2018-09-21] MEDS: COLLAGENASE 5 GM (UD JAR) TOP SCH (08:23)
--- NOTE | 2018-09-21 14:20 | PN ---
DATE: 09/21/2018 SUBJECTIVE: The patient is more responsive. Dr. Montalvo's consultation and recommendation greatly appreciated. PHYSICAL EXAMINATION: VITAL SIGNS: Temperature 98.6, blood pressure 120/63, O2 saturation 97% on 3 liters nasal cannula. LUNGS: Few wheezes anteriorly. HEART: S1, S2 with no definite gallops. EXTREMITIES: No edema. The patient tolerating G-tube feedings well. LABORATORY DATA: Sodium 134, potassium 4.6, BUN 16, creatinine 0.37. PT/INR is 1.88. Patient recei mio 7.5 mg Coumadin yesterday. IMPRESSION: 1. Acute cerebrovascular accident involving the right frontal and parietal lobes. 2. Lacunar infarcts with lethargy. 3. Status post urinary tract infection, enterococcus and Escherichia coli. 4. Asthmatic bronchitis, aspiration. 5. Seizure disorder. PLAN: We will continue the Coumadin. The patient has had a PICC line inserted. Continue G-tube fee dings and observe. Recheck PT, INR tomorrow. Dictated By: NADINE JAMES MD SR/NTS Conf#: [id number] DID#: [id number]
--- NOTE | 2018-09-21 15:27 | CONS ---
DATE OF ADMISSION: 09/06/2018 DATE OF CONSULTATION: HISTORY OF PRESENT ILLNESS: An 83 years old lady status post multiple medical problems in the form o f stroke, dysphagia, atrial fibrillation in which the patient is on anticoagulant. The patient under went for PEG tube feeding yesterday which was done successfully. History of seizure activity, in [facility] the patient has no more seizure activity during her hospitalization; however the patient had EEG w [facility] does not show seizure activity. CURRENT MEDICATIONS: Include: 1. Morphine 2 mg every 3 hours as needed. 2. Prednisone 20 mg once a day. 3. Ultram 50 mg every 6 hours. 4. Lasix 40 mg once a day. 5. Benadryl as needed. 6. Prozac 10 mg once a day. 7. Protonix 40 mg once a day. 8. Lipitor 80 mg once a day. 9. Lyrica 150 mg twice a day. 10. Primidone 250 mg twice a day. PHYSICAL EXAMINATION: GENERAL: Today, the patient is alert, awake and follows simple commands. CRANIAL NERVES: Cranial nerve II: Pupils are equal on both sides. Cranial III, IV and : Extraoc ular muscles intact. Cranial nerve V: Equal sensation to face. Cranial nerve VII: Symmetrical fac e. Cranial nerve VIII: Decreased hearing bilaterally. Cranial IX and X: Elevates palate. Cranial nerve XI: Elevates shoulder 5/5. Cranial nerve XII: With straight tongue. MOTOR: Left side is 4/5, right side is 1/5. Sensation decreased in the right side for light touch a nd temperature. COORDINATION: Could not assess. HEART: Regular rate and rhythm. LUNGS: Equal breath sounds. ABDOMEN: Soft, relaxed, nondistended, no tenderness. ASSESSMENT AND PLAN: 1. The patient is an 83-year-old status post stroke in which she was restarted on Coumadin 7.5. [place] p INR between 2 to 3. 2. Status post dysphagia in which the patient has a PEG tube feeding. 3. Underlying seizure in which the patient will continue her on Lyrica 150 twice a day as well as Pr imidone 250 mg twice a day. 4. 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 6. Keep the patient under fall precautions and seizure precautions. Dictated By: JESUS DAIGLE MD NA/NTS Conf#: [id number] DID#: [id number] CC: NADINE JAMES MD;*[facility]*
[2018-09-21] MEDS ORDERED: WARFARIN 7.5 MG TAB GTB ONE (17:00)
[2018-09-21] MEDS: morphine 2 MG INJ IV PRN (20:54)
[2018-09-21] MEDS: ATORVASTATIN 80 MG TAB PO SCH (21:08)
[2018-09-22] VITALS (12 sets, daily range): BP systolic 102–127; BP diastolic 52–75; PULSE 84–108; RESP 17–20
[2018-09-22] MEDS: ALBUTEROL/IPRATROPIUM (NEB) 3 ML AMP HHN SCH ×6 (01:12→20:31)
[2018-09-22] MEDS: ACETAMINOPHEN 325 MG TAB PO PRN (01:21)
[2018-09-22] MEDS: FUROSEMIDE 40 MG TAB NGT SCH (06:16)
[2018-09-22] MEDS: PANTOPRAZOLE (EC) 40 MG TAB PO SCH (06:16)
[2018-09-22] MEDS: morphine 2 MG INJ IV PRN ×3 (08:55→16:33)
[2018-09-22] MEDS: PREGABALIN 75 MG CAP PO SCH ×2 (08:55→21:00)
[2018-09-22] MEDS: COLLAGENASE 5 GM (UD JAR) TOP SCH (10:07)
[2018-09-22] MEDS: FLUOXETINE 10 MG CAP PO SCH (10:08)
[2018-09-22] MEDS: ASCORBIC ACID 500 MG TAB PO SCH (10:08)
[2018-09-22] MEDS: CALCIUM/VITAMIN D (500/200) TAB PO SCH ×2 (10:08→22:38)
[2018-09-22] MEDS: SULFASALAZINE 500 MG TAB PO SCH ×3 (10:08→22:38)
[2018-09-22] MEDS: POTASSIUM CHLORIDE (SR) 10 MEQ TAB NGT SCH (10:08)
[2018-09-22] MEDS: predniSONE 10 MG TAB GTB SCH (10:09)
[2018-09-22] MEDS: PRIMIDONE 250 MG TAB PO SCH ×2 (10:09→22:38)
[2018-09-22] MEDS: DOCUSATE SODIUM 100 MG CAP PO SCH ×2 (10:09→22:35)
[2018-09-22] MEDS: METOPROLOL 25 MG TAB PO SCH ×3 (10:11→22:40)
[2018-09-22] MEDS: GUAIFENESIN 20 MG/ML 5ML CUP PO SCH ×2 (12:40→22:35)
[2018-09-22] MEDS: FLUCONAZOLE 100 MG TAB PEG SCH (15:10)
--- NOTE | 2018-09-22 15:48 | CONS ---
Assessment/Plan Assessment/Plan Assessment/Plan (Daily) Assessment/Plan Hospital Course (Demo Recall) 83 yo female 1. Dysphagia. -s/p PEG 09/20 is tolerating feeding. No high residual 2. Cerebrovascular accident. 3. Escherichia coli infection. 4. Bronchitis. 5. Seizure disorder. 6. Atrial fibrillation. PLAN: Continue with tube feeds, monitor residuals q 4 hours, titrate to goal if residuals less than 100cc. Abdominal binder at all times Consultation Date/Type/Reason Admit Date/Time Sep 06, 2018 at 12:46 Initial Consult Date 09/11/18 Requesting Provider: NADINE JAMES MD Date/Time of Note DATE: 09/22/18 TIME: 15:48 24 HR Interval Summary Subjective hx not possible: pt non-verbal Constitutional: improved Exam/Review of Systems Exam Vitals Vital Signs Date Temp Pulse Resp B/P (MAP) Pulse Ox O2 O2 Flow FiO2 Time Delivery Rate 09/22/18 98.3 93 18 109/56 98 Nasal 2.0 15:28 (73) Cannula Intake and Output 09/21/18 09/21/18 09/22/18 1515:00 23:00 07:00 IntakeIntake Total 835 ml 750 ml OutputOutput Total 600 ml 200 ml BalanceBalance 235 ml 550 ml Constitutional: alert, oriented, well developed Psych: no complaints, nl mood/affect Head: normocephalic, atraumatic Eyes: nl conjunctiva, EOMI, nl lids, nl sclera, PERRL ENMT: nl external ears & nose, nl lips & teeth, nl nasal mucosa & septum Neck: supple, non-tender Respiratory: clear to auscultation, normal air movement Cardiovascular: regular rate and rhythm, nl pulses Gastrointestinal: soft, nl liver, spleen, non-tender Musculoskeletal: nl extremities to inspection, nl gait and stance Extremities: normal pulses 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: 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, nl mental status, nl speech, nl strength Skin: nl turgor; No rash or lesions Lymph: nl lymph nodes Results Result Diagram: 09/22/18 0511 09/22/18 0511 Results 24hrs Laboratory Tests Test 09/22/18 05:11 White Blood Count 11.3 #H Red Blood Count 4.31 Hemoglobin 11.0 L Hematocrit 34.7 L Mean Corpuscular Volume 80.5 L Mean Corpuscular Hemoglobin 25.5 L Mean Corpuscular Hemoglobin Concent 31.7 L Red Cell Distribution Width 21.7 H Platelet Count 143 Mean Platelet Volume 11.5 H Immature Granulocytes % 1.700 H Neutrophils % 73.2 Lymphocytes % 12.4 L Monocytes % 11.0 Eosinophils % 1.4 Basophils % 0.3 Nucleated Red Blood Cells % 0.0 Immature Granulocytes # 0.190 H Neutrophils # 8.3 H Lymphocytes # 1.4 Monocytes # 1.3 H Eosinophils # 0.2 Basophils # 0.0 Nucleated Red Blood Cells # 0.0 Prothrombin Time 19.7 H Prothrombin Time Ratio 1.5 INR International Normalized Ratio 1.66 Sodium Level 129 L Potassium Level 4.8 Chloride Level 89 L Carbon Dioxide Level 35 H Anion Gap 5 Blood Urea Nitrogen 20 Creatinine 0.41 L Est Glomerular Filtrat Rate mL/min Glucose Level 166 Calcium Level 8.5 Medications Medication Current Medications Acetaminophen (Tylenol Tab) 650 mg Q4H PRN PO PAIN LEVEL 1-5/10 Last administered on 09/22/18 01:21; Admin Dose 650 MG; Start 09/06/18 at 15:30 Ascorbic Acid (Vitamin C) 500 mg DAILY PO Last administered on 09/22/18 10:08; Admin Dose 500 MG; Start 09/07/18 at 09:00 Atorvastatin Calcium (Lipitor) 80 mg QHS PO Last administered on 09/21/18 21:08; Admin Dose 80 MG; Start 09/06/18 at 21:00 Calcium/Vitamin D (Oyster Shell/ Vit-D (500/200)) 1 tab BID PO Last admini stered on 09/22/18 10:08; Admin Dose 1 TAB; Start 09/06/18 at 21:00 Docusate Sodium (Colace) 200 mg BID PO Last administered on 09/22/18 10:09; Admin Dose 200 MG; Start 09/06/18 at 21:00 Fluoxetine HCl (Prozac) 10 mg DAILY PO Last administered on 09/22/18 10:08; Admin Dose 10 MG; Start 09/07/18 at 09:00 Primidone (Mysoline) 250 mg BID PO Last administered on 09/22/18 10:09; Admin Dose 250 MG; Start 09/06/18 at 21:00 Pantoprazole (Protonix Tab) 40 mg DAILY@06 PO Last administered on 09/22/18 06:16; Admin Dose 40 MG; Start 09/07/18 at 06:00 Albuterol/ Ipratropium (Duoneb) 3 ml Q4H RESP THERAPY HHN Last administered on 09/22/18 12:14; Admin Dose 3 ML; Start 09/06/18 at 17:00 Promethazine HCl (Phenergan Liq) 6.25 mg TID PRN PO Cough Last administered on 09/17/18 18:22; Admin Dose 6.25 MG; Start 09/06/18 at 15:30 Albuterol/ Ipratropium (Duoneb) 3 ml Q4H RESP THERAPY PRN HHN SHORTNESS OF BREATH; Start 09/06/18 at 16:00 Pregabalin (Lyrica) 150 mg BID PO Last administered on 09/22/18 08:55; Admin Dose 150 MG; Start 09/07/18 at 10:30 Sulfasalazine (Azulfidine) 500 mg TID PO Last administered on 09/22/18 12:41; Admin Dose 500 MG; Start 09/07/18 at 13:00 Diltiazem HCl 125 ml @ 5 mls/hr TITRATE IV Last administered on 09/12/18 08:32; Admin Dose 5 MLS/HR; Start 09/09/18 at 11:30 Metoprolol Tartrate (Lopressor) 37.5 mg TID PO Last administered on 09/22/18 12:40; Admin Dose 37.5 MG; Start 09/12/18 at 13:00 Collagenase (Santyl) 1 applic DAILY TOP Last administered on 09/22/18 10:07; Admin Dose 1 APPLIC; Start 09/13/18 at 10:30 Collagenase (Santyl) 1 applic PRN PRN TOP WOUND CARE; Start 09/13/18 at 10:30 Bisacodyl (Dulcolax Supp) 10 mg DAILY PRN [place] constipation; Start 09/17/18 at 09:00 Furosemide (Lasix) 40 mg DAILY@0600 NGT Last administered on 09/22/18 06:16; Admin Dose 40 MG; Start 09/17/18 at 09:45 Tramadol HCl (Ultram) 50 mg Q6H PRN GTB MODERATE PAIN LEVEL 4-6 Last administered on 09/19/18 21:13; Admin Dose 50 MG; Start 09/17/18 at 18:00 Phenol (Chloraseptic Throat [place]) 2 spray Q2H PRN [place] SORE THROAT Last administered on 09/19/18 15:22; Admin Dose 2 SPRAY; Start 09/17/18 at 21:00 Prednisone (Prednisone) 20 mg DAILY GTB Last administered on 09/22/18 10:09; Admin Dose 20 MG; Start 09/19/18 at 09:00 Potassium Chloride (Klor-Con 10) 30 meq BID NGT Last administered on 09/22/18 10:08; Admin Dose 30 MEQ; Start 09/18/18 at 21:00 Guaifenesin (Robitussin Liquid Cup) 400 mg BID PO Last administered on 09/22/18 12:40; Admin Dose 400 MG; Start 09/18/18 at 21:00 Morphine Sulfate (morphine) 2 mg Q3H PRN IV SEVERE PAIN LEVEL 7-10 Last administered on 09/22/18 10:11; Admin Dose 2 MG; Start 09/19/18 at 16:00 IV Flush (NS 10 ml) 10 ml PRN PRN IV IV PROTOCOL; Start 09/20/18 at 18:00 Warfarin Sodium (Coumadin) 10 mg ONCE@17 ONCE GTB ; Start 09/22/18 at 17:00; Stop 09/22/18 at 17:01 Fluconazole (Diflucan) 100 mg DAILY PEG Last administered on 09/22/18 15:10; Admin Dose 100 MG; Start 09/22/18 at 14:00 ARMANI CAMPA MD Sep 22, 2018 15:48
--- NOTE | 2018-09-22 16:38 | PN ---
DATE: 09/22/2018 SUBJECTIVE: The patient is more awake and responsive. PHYSICAL EXAMINATION: VITAL SIGNS: Temperature 98.2, blood pressure , O2 saturation 98% on 2 liters nasal cannula. CHEST: Decreased breath sounds at bases. Occasional wheezes. HEART: S1 and S2 heard. No definite gallops. EXTREMITIES: No edema. LABORATORY DATA: PT/INR today is 1.66. The patient received 7.5 mg of Coumadin yesterday. IMPRESSION: 1. Acute cerebrovascular accident involving the right frontal and parietal lobes, status post prior strokes. 2. Seizure disorder. 3. Status post urinary tract infection. Repeat urine cultures pending. 4. Recurrent aspiration with asthmatic bronchitis, improving. PLAN: We will give Coumadin 10 mg through the G-tube today. Recheck PT/INR tomorrow. Repeat a ches t x-ray in a.m. ADDENDUM: Urine culture done on September 19 growing [place] 50,000 to 60,000. We will start the ravindra ent on Diflucan 100 mg through the G-tube. Dictated By: NADINE JAMES MD SR/NTS Conf#: [id number] DID#: [id number]
[2018-09-22] MEDS ORDERED: WARFARIN 10 MG TAB GTB ONE (17:00)
[2018-09-22] MEDS: ATORVASTATIN 80 MG TAB PO SCH (22:35)
[2018-09-22] MEDS: POTASSIUM CHLORIDE 20 MEQ POWDER FOR ORAL SOLN NGT SCH (22:39)
[2018-09-23] VITALS (12 sets, daily range): BP systolic 100–135; BP diastolic 55–68; PULSE 76–103; RESP 17–20
[2018-09-23] MEDS: ALBUTEROL/IPRATROPIUM (NEB) 3 ML AMP HHN SCH ×6 (01:13→20:09)
[2018-09-23] MEDS: PANTOPRAZOLE (EC) 40 MG TAB PO SCH (05:40)
[2018-09-23] MEDS: FUROSEMIDE 40 MG TAB NGT SCH (05:41)
[2018-09-23] MEDS: GUAIFENESIN 20 MG/ML 5ML CUP PO SCH ×2 (09:05→21:43)
[2018-09-23] MEDS: predniSONE 10 MG TAB GTB SCH (09:05)
[2018-09-23] MEDS: DOCUSATE SODIUM 100 MG CAP PO SCH (09:05)
[2018-09-23] MEDS: COLLAGENASE 5 GM (UD JAR) TOP SCH (09:05)
[2018-09-23] MEDS: FLUOXETINE 10 MG CAP PO SCH (09:05)
[2018-09-23] MEDS: POTASSIUM CHLORIDE 20 MEQ POWDER FOR ORAL SOLN NGT SCH ×2 (09:06→21:42)
[2018-09-23] MEDS: PREGABALIN 75 MG CAP PO SCH ×2 (09:06→21:43)
[2018-09-23] MEDS: CALCIUM/VITAMIN D (500/200) TAB PO SCH ×2 (09:06→21:44)
[2018-09-23] MEDS: PRIMIDONE 250 MG TAB PO SCH ×2 (09:06→21:46)
[2018-09-23] MEDS: ASCORBIC ACID 500 MG TAB PO SCH (09:06)
[2018-09-23] MEDS: SULFASALAZINE 500 MG TAB PO SCH ×3 (09:06→21:46)
[2018-09-23] MEDS: FLUCONAZOLE 100 MG TAB PEG SCH (09:06)
[2018-09-23] MEDS: METOPROLOL 25 MG TAB PO SCH ×3 (09:07→21:44)
--- NOTE | 2018-09-23 11:05 | CONS ---
Assessment/Plan Assessment/Plan Assessment/Plan (Daily) Assessment/Plan Hospital Course (Demo Recall) 83 yo female 1. Dysphagia. -s/p PEG 09/20 is tolerating feeding. No high residual 2. Cerebrovascular accident. 3. Escherichia coli infection. 4. Bronchitis. 5. Seizure disorder. 6. Atrial fibrillation. PLAN: Continue with tube feeds, monitor residuals q 4 hours, titrate to goal if residuals less than 100cc. Abdominal binder at all times Patient is on Coumadin and will observe him for any GI bleeding Consultation Date/Type/Reason Admit Date/Time Sep 06, 2018 at 12:46 Initial Consult Date 09/11/18 Requesting Provider: NADINE JAMES MD Date/Time of Note DATE: 09/23/18 TIME: 11:04 24 HR Interval Summary Constitutional: improved Exam/Review of Systems Exam Vitals Vital Signs Date Temp Pulse Resp B/P (MAP) Pulse Ox O2 O2 Flow FiO2 Time Delivery Rate 09/23/18 103 08:23 09/23/18 3.0 08:20 09/23/18 15 98 Nasal 08:20 Cannula 09/23/18 98.9 115/62 07:39 (79) Intake and Output 09/22/18 09/22/18 09/23/18 1515:00 23:00 07:00 IntakeIntake Total 1310 ml 960 ml OutputOutput Total 975 ml 500 ml BalanceBalance 335 ml 460 ml Constitutional: alert, oriented, well developed Psych: no complaints, nl mood/affect Head: normocephalic, atraumatic Eyes: nl conjunctiva, EOMI, nl lids, nl sclera, PERRL ENMT: nl external ears & nose, nl lips & teeth, nl nasal mucosa & septum Neck: supple, non-tender Respiratory: clear to auscultation, normal air movement Cardiovascular: regular rate and rhythm, nl pulses Gastrointestinal: soft, nl liver, spleen, non-tender Musculoskeletal: nl extremities to inspection, nl gait and stance Extremities: normal pulses 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: 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 intact, nl mental status, nl speech, nl strength Skin: nl turgor; No rash or lesions Lymph: nl lymph nodes Results Result Diagram: 09/22/18 0511 09/22/18 0511 Results 24hrs Laboratory Tests Test 09/23/18 05:28 Prothrombin Time 16.7 H Prothrombin Time Ratio 1.3 INR International Normalized Ratio 1.34 Medications Medication Current Medications Acetaminophen (Tylenol Tab) 650 mg Q4H PRN PO PAIN LEVEL 1-5/10 Last administered on 09/22/18 01:21; Admin Dose 650 MG; Start 09/06/18 at 15:30 Ascorbic Acid (Vitamin C) 500 mg DAILY PO Last administered on 09/23/18 09:06; Admin Dose 500 MG; Start 09/07/18 at 09:00 Atorvastatin Calcium (Lipitor) 80 mg QHS PO Last administered on 09/22/18 22:35; Admin Dose 80 MG; Start 09/06/18 at 21:00 Calcium/Vitamin D (Oyster Shell/ Vit-D (500/200)) 1 tab BID PO Last administered on 09/23/18 09:06; Admin Dose 1 TAB; Start 09/06/18 at 21:00 Docusate Sodium (Colace) 200 mg BID PO Last administered on 09/23/18 09:05; Admin Dose 200 MG; Start 09/06/18 at 21:00 Fluoxetine HCl (Prozac) 10 mg DAILY PO Last administered on 09/23/18 09:05; Admin Dose 10 MG; Start 09/07/18 at 09:00 Primidone (Mysoline) 250 mg BID PO Last administered on 09/23/18 09:06; Admin Dose 250 MG; Start 09/06/18 at 21:00 Pantoprazole (Protonix Tab) 40 mg DAILY@06 PO Last administered on 09/23/18 05:40; Admin Dose 40 MG; Start 09/07/18 at 06:00 Albuterol/ Ipratropium (Duoneb) 3 ml Q4H RESP THERAPY HHN Last administered on 09/23/18 08:18; Admin Dose 3 ML; Start 09/06/18 at 17:00 Promethazine HCl (Phenergan Liq) 6.25 mg TID PRN PO Cough Last administered on 09/17/18 18:22; Admin Dose 6.25 MG; Start 09/06/18 at 15:30 Albuterol/ Ipratropium (Duoneb) 3 ml Q4H RESP THERAPY PRN HHN SHORTNESS OF BREATH; Start 09/06/18 at 16:00 Pregabalin (Lyrica) 150 mg BID PO Last administered on 09/23/18 09:06; Admin Dose 150 MG; Start 09/07/18 at 10:30 Sulfasalazine (Azulfidine) 500 mg TID PO Last administered on 09/23/18 09:06; Admin Dose 500 MG; Start 09/07/18 at 13:00 Diltiazem HCl 125 ml @ 5 mls/hr TITRATE IV Last administered on 09/12/18 08:32; Admin Dose 5 MLS/HR; Start 09/09/18 at 11:30 Metoprolol Tartrate (Lopressor) 37.5 mg TID PO Last administered on 09/23/18 09:07; Admin Dose 37.5 MG; Start 09/12/18 at 13:00 Collagenase (Santyl) 1 applic DAILY TOP Last administered on 09/23/18 09:05; Admin Dose 1 APPLIC; Start 09/13/18 at 10:30 Collagenase (Santyl) 1 applic PRN PRN TOP WOUND CARE; Start 09/13/18 at 10:30 Bisacodyl (Dulcolax Supp) 10 mg DAILY PRN [place] constipation; Start 09/17/18 at 09:00 Furosemide (Lasix) 40 mg DAILY@0600 NGT Last administered on 09/23/18 05:41; Admin Dose 40 MG; Start 09/17/18 at 09:45 Tramadol HCl (Ultram) 50 mg Q6H PRN GTB MODERATE PAIN LEVEL 4-6 Last administered on 09/19/18 21:13; Admin Dose 50 MG; Start 09/17/18 at 18:00 Phenol (Chloraseptic Throat [place]) 2 spray Q2H PRN [place] SORE THROAT Last administered on 09/19/18 15:22; Admin Dose 2 SPRAY; Start 09/17/18 at 21:00 Prednisone (Prednisone) 20 mg DAILY GTB Last administered on 09/23/18 09:05; Admin Dose 20 MG; Start 09/19/18 at 09:00 Guaifenesin (Robitussin Liquid Cup) 400 mg BID PO Last administered on 09/23/18 09:05; Admin Dose 400 MG; Start 09/18/18 at 21:00 Morphine Sulfate (morphine) 2 mg Q3H PRN IV SEVERE PAIN LEVEL 7-10 Last administered on 4/24/19at 16:33; Admin Dose 2 MG; Start 09/19/18 at 16:00 IV Flush (NS 10 ml) 10 ml PRN PRN IV IV PROTOCOL; Start 09/20/18 at 18:00 Fluconazole (Diflucan) 100 mg DAILY PEG Last administered on 09/23/18 09:06; Admin Dose 100 MG; Start 09/22/18 at 14:00 Potassium Chloride (Potassium Chloride Pwd/Soln) 30 meq BID NGT Last administered on 09/23/18at 09:06; Admin Dose 30 MEQ; Start 09/22/18 at 21:00 ARMANI CAMPA MD Sep 23, 2018 11:05
--- NOTE | 2018-09-23 14:00 | PN ---
DATE: 09/23/2018 SUBJECTIVE: The patient is more responsive today. Has a congested cough. PHYSICAL EXAMINATION: VITAL SIGNS: Temperature 98.7, blood pressure 100/55, O2 saturation 98% on 3 liters nasal cannula. JVD is not increased. CHEST: Wheezes anteriorly. HEART: S1, S2 are noted. No gallops. EXTREMITIES: No edema. LABORATORY DATA: PT/INR is 1.34 today. The patient received 10 mg of Coumadin yesterday. IMPRESSION: 1. Acute cerebrovascular accident involving the right frontal and parietal lobes, status post prior strokes. 2. Seizure disorder. 3. Status post urinary tract infection. 4. Recurrent aspiration, asthmatic bronchitis. PLAN: Would repeat chest x-ray today. Coumadin 10 mg through the G-tube today. Recheck PT/INR silvia rrow. We will also request Dr. Roberts for pulmonary consultation. Dictated By: NADINE JAMES MD SR/NTS Conf#: [id number] DID#: [id number]
[2018-09-23] MEDS ORDERED: WARFARIN 10 MG TAB GTB ONE (17:00)
[2018-09-23] MEDS: DOCUSATE SODIUM 10 MG/ML (10ML CUP) PEG SCH (21:43)
[2018-09-23] MEDS: ATORVASTATIN 80 MG TAB PO SCH (21:44)
[2018-09-24] VITALS (10 sets, daily range): BP systolic 97–111; BP diastolic 54–79; PULSE 79–103; RESP 18–20
[2018-09-24] MEDS: ALBUTEROL/IPRATROPIUM (NEB) 3 ML AMP HHN SCH ×6 (00:20→20:11)
[2018-09-24] MEDS: LANSOPRAZOLE 30 MG CAP PEG SCH (05:06)
[2018-09-24] MEDS: FUROSEMIDE 40 MG TAB NGT SCH (05:07)
[2018-09-24] MEDS: PHENOL 1.4% SOLN 180 ML BTL MT PRN (05:14)
--- NOTE | 2018-09-24 07:52 | CONS ---
Assessment/Plan Assessment/Plan Hospital Course (Demo Recall) 83 yo female Interval Hx: no acute changes. Tolerating tube feeds. BM this am. hgb 10.8, stable but there has been downward trend 1. Dysphagia. -s/p PEG 09/20 2. Cerebrovascular accident. 3. Escherichia coli infection. 4. Bronchitis. 5. Seizure disorder. 6. Atrial fibrillation. PLAN: FOB Continue with tube feeds, monitor residuals q 4 hours, titrate to goal if residuals less than 100cc. Abdominal binder at all times On Coumadin, monitor for GI bleeding Pt examined and plan of care discussed with Dr. Montalvo Consultation Date/Type/Reason Admit Date/Time Sep 06, 2018 at 12:46 Initial Consult Date 09/11/18 Requesting Provider: NADINE JAMES MD Date/Time of Note DATE: 09/24/18 TIME: 07:48 Exam/Review of Systems Exam Vitals Vital Signs Date Temp Pulse Resp B/P (MAP) Pulse Ox O2 O2 Flow FiO2 Time Delivery Rate 09/24/18 97.5 100 20 97/79 (85) 97 07:12 09/24/18 Nasal 3.0 05:20 Cannula Intake and Output 09/23/18 09/23/18 09/24/18 1515:00 23:00 07:00 IntakeIntake Total 1080 ml 1000 ml OutputOutput Total 1200 ml 500 ml BalanceBalance -120 ml 500 ml Head: normocephalic Eyes: PERRL Respiratory: other (non labored, symmetrical chest rise) Cardiovascular: regular rate and rhythm Gastrointestinal: soft, non-tender Results Result Diagram: 09/24/18 0536 09/24/18 0536 Results 24hrs Laboratory Tests Test 09/24/18 05:36 09/24/18 06:04 White Blood Count 10.0 Red Blood Count 4.34 Hemoglobin 10.8 L Hematocrit 35.0 L Mean Corpuscular Volume 80.6 L Mean Corpuscular Hemoglobin 24.9 L Mean Corpuscular Hemoglobin Concent 30.9 L Red Cell Distribution Width 21.5 H Platelet Count 191 # Mean Platelet Volume 10.9 H Immature Granulocytes % 1.900 H Neutrophils % 70.1 Lymphocytes % 13.9 L Monocytes % 11.7 H Eosinophils % 2.2 Basophils % 0.2 Nucleated Red Blood Cells % 0.0 Immature Granulocytes # 0.190 H Neutrophils # 7.0 Lymphocytes # 1.4 Monocytes # 1.2 H Eosinophils # 0.2 Basophils # 0.0 Nucleated Red Blood Cells # 0.0 Prothrombin Time 17.7 H Prothrombin Time Ratio 1.4 INR International Normalized Ratio 1.45 Sodium Level 132 L Potassium Level 4.7 Chloride Level 92 L Carbon Dioxide Level 35 H Anion Gap 5 Blood Urea Nitrogen 19 Creatinine 0.32 L Est Glomerular Filtrat Rate mL/min Glucose Level 187 Calcium Level 8.6 Lab Scanned Report REFERENCE LAB Medications Medication Current Medications Acetaminophen (Tylenol Tab) 650 mg Q4H PRN PO PAIN LEVEL 1-5/10 Last administered on 09/22/18 01:21; Admin Dose 650 MG; Start 09/06/18 at 15:30 Ascorbic Acid (Vitamin C) 500 mg DAILY PO Last administered on 09/23/18 09:06; Admin Dose 500 MG; Start 09/07/18 at 09:00 Atorvastatin Calcium (Lipitor) 80 mg QHS PO Last administered on 09/23/18 21:44; Admin Dose 80 MG; Start 09/06/18 at 21:00 Calcium/Vitamin D (Oyster Shell/ Vit-D (500/200)) 1 tab BID PO Last adminis tered on 09/23/18 21:44; Admin Dose 1 TAB; Start 09/06/18 at 21:00 Fluoxetine HCl (Prozac) 10 mg DAILY PO Last administered on 09/23/18 09:05; Admin Dose 10 MG; Start 09/07/18 at 09:00 Primidone (Mysoline) 250 mg BID PO Last administered on 09/23/18 21:46; Admin Dose 250 MG; Start 09/06/18 at 21:00 Albuterol/ Ipratropium (Duoneb) 3 ml Q4H RESP THERAPY HHN Last administered on 09/24/18 05:20; Admin Dose 3 ML; Start 09/06/18 at 17:00 Promethazine HCl (Phenergan Liq) 6.25 mg TID PRN PO Cough Last administered on 09/17/18 18:22; Admin Dose 6.25 MG; Start 09/06/18 at 15:30 Albuterol/ Ipratropium (Duoneb) 3 ml Q4H RESP THERAPY PRN HHN SHORTNESS OF BREATH; Start 09/06/18 at 16:00 Pregabalin (Lyrica) 150 mg BID PO Last administered on 09/23/18 21:43; Admin Dose 150 MG; Start 09/07/18 at 10:30 Sulfasalazine (Azulfidine) 500 mg TID PO Last administered on 09/23/18 21:46; Admin Dose 500 MG; Start 09/07/18 at 13:00 Diltiazem HCl 125 ml @ 5 mls/hr TITRATE IV Last administered on 09/12/18 0 8:32; Admin Dose 5 MLS/HR; Start 09/09/18 at 11:30 Metoprolol Tartrate (Lopressor) 37.5 mg TID PO Last administered on 09/23/18 21:44; Admin Dose 37.5 MG; Start 09/12/18 at 13:00 Collagenase (Santyl) 1 applic DAILY TOP Last administered on 09/23/18 09:05; Admin Dose 1 APPLIC; Start 09/13/18 at 10:30 Collagenase (Santyl) 1 applic PRN PRN TOP WOUND CARE; Start 09/13/18 at 10:30 Bisacodyl (Dulcolax Supp) 10 mg DAILY PRN [place] constipation; Start 09/17/18 at 09:00 Furosemide (Lasix) 40 mg DAILY@0600 NGT Last administered on 09/24/18 05:07; Admin Dose 40 MG; Start 09/17/18 at 09:45 Tramadol HCl (Ultram) 50 mg Q6H PRN GTB MODERATE PAIN LEVEL 4-6 Last administered on 09/19/18 21:13; Admin Dose 50 MG; Start 09/17/18 at 18:00 Phenol (Chloraseptic Throat [place]) 2 spray Q2H PRN [place] SORE THROAT Last administered on 09/24/18 05:14; Admin Dose 2 SPRAY; Start 09/17/18 at 21:00 Guaifenesin (Robitussin Liquid Cup) 400 mg BID PO Last administered on 09/23/18 21:43; Admin Dose 400 MG; Start 09/18/18 at 21:00 Morphine Sulfate (morphine) 2 mg Q3H PRN IV SEVERE PAIN LEVEL 7-10 Last administered on 09/22/18 16:33; Admin Dose 2 MG; Start 09/19/18 at 16:00 IV Flush (NS 10 ml) 10 ml PRN PRN IV IV PROTOCOL; Start 09/20/18 at 18:00 Fluconazole (Diflucan) 100 mg DAILY PEG Last administered on 09/23/18at 09:06; Admin Dose 100 MG; Start 09/22/18 at 14:00 Potassium Chloride (Potassium Chloride Pwd/Soln) 30 meq BID NGT Last administered on 09/23/18at 21:42; Admin Dose 30 MEQ; Start 09/22/18 at 21:00 Prednisone (Prednisone) 10 mg DAILY GTB ; Start 09/24/18 at 09:00 Docusate Sodium (Colace Liquid Cup) 200 mg BID PEG Last administered on 09/23/18at 21:43; Admin Dose 200 MG; Start 09/23/18 at 21:00 Lansoprazole (Prevacid) 30 mg DAILY@06 PEG Last administered on 09/24/18at 05:06; Admin Dose 30 MG; Start 09/24/18 at 06:00 SUSAN SAEED Sep 24, 2018 07:52
[2018-09-24] MEDS: POTASSIUM CHLORIDE 20 MEQ POWDER FOR ORAL SOLN NGT SCH (08:47)
[2018-09-24] MEDS: DOCUSATE SODIUM 10 MG/ML (10ML CUP) PEG SCH ×2 (08:47→22:05)
[2018-09-24] MEDS: GUAIFENESIN 20 MG/ML 5ML CUP PO SCH ×2 (08:47→22:04)
[2018-09-24] MEDS: CALCIUM/VITAMIN D (500/200) TAB PO SCH ×2 (08:48→22:03)
[2018-09-24] MEDS: SULFASALAZINE 500 MG TAB PO SCH ×3 (08:48→22:04)
[2018-09-24] MEDS: FLUOXETINE 10 MG CAP PO SCH (08:48)
[2018-09-24] MEDS: COLLAGENASE 5 GM (UD JAR) TOP SCH (08:48)
[2018-09-24] MEDS: predniSONE 10 MG TAB GTB SCH (08:48)
[2018-09-24] MEDS: PRIMIDONE 250 MG TAB PO SCH ×2 (08:48→22:04)
[2018-09-24] MEDS: PREGABALIN 75 MG CAP PO SCH ×2 (08:48→22:05)
[2018-09-24] MEDS: FLUCONAZOLE 100 MG TAB PEG SCH (08:48)
[2018-09-24] MEDS: ASCORBIC ACID 500 MG TAB PO SCH (08:48)
[2018-09-24] MEDS: METOPROLOL 25 MG TAB PO SCH ×3 (09:00→22:03)
--- NOTE | 2018-09-24 14:49 | PN ---
DATE: 09/24/2018 SUBJECTIVE: The patient is lethargic, in no acute distress. OBJECTIVE: VITAL SIGNS: Temperature 98.2, blood pressure 157/55, O2 saturation 97% on 3 liters nasal cannula. NECK: JVD is not increased. CHEST: Bilateral rhonchi anteriorly. HEART: S1, S2 with no definite gallops. EXTREMITIES: No edema. LABORATORY DATA: WBC count 10.0, hematocrit 35. Sodium 132, potassium 4.7. PT/INR is 1.45 after 10 mg of Coumadin. DIAGNOSTIC DATA: Chest x-ray shows bibasilar subsegmental atelectasis with small pleural effusion, i ncreased pulmonary vascular congestion. IMPRESSION: 1. Recurrent aspiration pneumonia with underlying congestive heart failure. 2. Acute cerebrovascular accident involving the right frontal and parietal lobes, status post recent cerebrovascular accident 2 months prior. PLAN: We will change the Lasix to IV. Continue Coumadin through the G-tube. We will discuss with Issa Hansen. We will also request pulmonary consultation, Dr. Roberts. Dictated By: NADINE JAMES MD, SR/NTS Conf#: [id number] DID#: [id number]
[2018-09-24] MEDS: FUROSEMIDE 40 MG INJ IV SCH (15:04)
[2018-09-24] MEDS ORDERED: ALTEPLASE (CATHFLO) 2 MG INJ CATHETER PRN (16:00)
[2018-09-24] MEDS ORDERED: WARFARIN 10 MG TAB GTB SCH (17:00)
--- NOTE | 2018-09-24 20:47 | CONS ---
DATE OF ADMISSION: 09/06/2018 DATE OF CONSULTATION: HISTORY OF PRESENT ILLNESS: The patient is an 83-year-old status post history of atrial fibrillation , stroke, dysphagia, PEG tube feeding, seizure. CURRENT MEDICATIONS: Include: 1. Coumadin 10 mg once a day. 2. Lasix 40 mg once a day. 3. Prednisone 10 mg as per G-tube. 4. Prevacid 30 mg once a day. 5. Colace liquid cap 200 mg twice a day. 6. Diflucan 100 mg. 7. Morphine 2 mg every 3 hours as needed. 8. Ultram 50 mg once a day. 9. Bisacodyl 10 mg once a day. 10. Lopressor 37.5 mg 3 times a day. 11. Diltiazem once a day. 12. Lyrica 150 mg once a day. 13. Prozac 10 mg once a day. 14. Lipitor 80 mg at bedtime. 15. Phenergan 6.25 mg once a day. PHYSICAL EXAMINATION: GENERAL: Today, the patient is alert, awake and follows simple commands. CRANIAL NERVES: Cranial nerve II: Pupils are equal on both sides, reactive to light. Cranial nerve s III, IV and : Extraocular muscles are intact. Cranial nerve V: Equal sensation to face. Crani al nerve VII: Symmetrical face. Cranial nerve VIII: Decreased hearing bilaterally. Cranial nerve IX and X: Elevates palate. Cranial nerve XI: Elevates shoulder 5/5. Cranial nerve XII: With stra ight tongue. MOTOR: Left side is 4+/5. Right side is 1/5. Sensation decreased on the right side for light touch and temperature. COORDINATION: [id number] could not assess. HEART: Regular rate and rhythm. LUNGS: Equal breath sounds. ABDOMEN: Soft, relaxed. ASSESSMENT AND PLAN: 1. The patient is an 83-year-old status post stroke. We will continue the patient on Coumadin 10 mg once a day. Keep the INR between 2 and 3. 2. History of dysphagia which the patient did get PEG tube feeding. 3. Underlying seizure. Continue the patient on Lyrica 150 mg as well as primidone. 4. 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 5. Keep the patient under fall precaution and seizure precaution. Again, thank you, Dr. James, for asking me to see the patient with you. Dictated By: JESUS DAIGLE MD NA/NTS Conf#: [id number] [facility]#: [id number] CC: NADINE JAMES MD;*EndCC*
[2018-09-24] MEDS: ATORVASTATIN 80 MG TAB PO SCH (22:02)
[2018-09-25] VITALS (11 sets, daily range): BP systolic 100–116; BP diastolic 53–56; PULSE 83–105; RESP 18–20
[2018-09-25] MEDS: ALBUTEROL/IPRATROPIUM (NEB) 3 ML AMP HHN SCH ×6 (00:51→21:02)
[2018-09-25] MEDS: LANSOPRAZOLE 30 MG CAP PEG SCH (05:51)
[2018-09-25] MEDS: ASCORBIC ACID 500 MG TAB PO SCH (08:52)
[2018-09-25] MEDS: FLUOXETINE 10 MG CAP PO SCH (08:52)
[2018-09-25] MEDS: predniSONE 10 MG TAB GTB SCH (08:52)
[2018-09-25] MEDS: SULFASALAZINE 500 MG TAB PO SCH ×3 (08:53→20:30)
[2018-09-25] MEDS: CALCIUM/VITAMIN D (500/200) TAB PO SCH ×2 (08:53→20:27)
[2018-09-25] MEDS: FLUCONAZOLE 100 MG TAB PEG SCH (08:53)
[2018-09-25] MEDS: PRIMIDONE 250 MG TAB PO SCH ×2 (08:53→20:29)
[2018-09-25] MEDS: POTASSIUM CHLORIDE 20 MEQ POWDER FOR ORAL SOLN GTB SCH (08:56)
[2018-09-25] MEDS: PREGABALIN 75 MG CAP PO SCH ×2 (08:57→20:29)
[2018-09-25] MEDS: DOCUSATE SODIUM 10 MG/ML (10ML CUP) PEG SCH ×2 (08:58→20:31)
[2018-09-25] MEDS: GUAIFENESIN 20 MG/ML 5ML CUP PO SCH ×2 (08:58→20:30)
[2018-09-25] MEDS: COLLAGENASE 5 GM (UD JAR) TOP SCH (08:59)
[2018-09-25] MEDS: FUROSEMIDE 40 MG INJ IV SCH (08:59)
[2018-09-25] MEDS: METOPROLOL 25 MG TAB PO SCH ×3 (10:53→20:29)
--- NOTE | 2018-09-25 15:30 | CONS ---
Assessment/Plan Assessment/Plan Hospital Course (Demo Recall) 83 yo female Interval Hx: no acute changes. Tolerating tube feeds. Hgb trending down. No BM since yesterday am. Spoke with RN about using prn laxatives to collect FOB. 1. Dysphagia. -s/p PEG 09/20 2. S/P Cerebrovascular accident 2 months ago 3. Escherichia coli infection. 4. Bronchitis. 5. Seizure disorder. 6. Atrial fibrillation. 7. Recurrent aspiration pneumonia PLAN: AM labs, monitor HH FOB Continue with tube feeds, monitor residuals q 4 hours, titrate to goal if resid uals less than 100cc. Abdominal binder at all times On Coumadin, monitor for GI bleeding Pt examined and plan of care discussed with Dr. Montalvo Consultation Date/Type/Reason Admit Date/Time Sep 06, 2018 at 12:46 Initial Consult Date 09/11/18 Requesting Provider: NADINE JAMES MD Date/Time of Note DATE: 09/25/18 TIME: 15:23 Exam/Review of Systems Exam Vitals Vital Signs Date Temp Pulse Resp B/P (MAP) Pulse Ox O2 O2 Flow FiO2 Time Delivery Rate 09/25/18 3.0 13:54 09/25/18 89 16 95 Nasal 13:50 Cannula 09/25/18 99.3 116/55 11:22 (75) Intake and Output 09/24/18 09/24/18 09/25/18 1515:00 23:00 07:00 IntakeIntake Total 780 ml 725 ml OutputOutput Total 950 ml 1050 ml BalanceBalance -170 ml -325 ml Head: normocephalic Eyes: PERRL ENMT: mucosa pink and moist Respiratory: other (non labored, symmetrical chest rise) Gastrointestinal: soft, non-tender Musculoskeletal: muscle weakness 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: lethargic Results Result Diagram: 09/25/18 0548 09/25/18 0548 Results 24hrs Laboratory Tests Test 09/25/18 05:48 White Blood Count 9.7 Red Blood Count 3.75 L Hemoglobin 9.6 L Hematocrit 30.7 L Mean Corpuscular Volume 81.9 L Mean Corpuscular Hemoglobin 25.6 L Mean Corpuscular Hemoglobin Concent 31.3 L Red Cell Distribution Width 21.4 H Platelet Count 167 Mean Platelet Volume 10.4 Immature Granulocytes % 2.100 H Neutrophils % 65.7 Lymphocytes % 16.6 Monocytes % 12.0 H Eosinophils % 3.2 Basophils % 0.4 Nucleated Red Blood Cells % 0.0 Immature Granulocytes # 0.200 H Neutrophils # 6.4 Lymphocytes # 1.6 Monocytes # 1.2 H Eosinophils # 0.3 Basophils # 0.0 Nucleated Red Blood Cells # 0.0 Prothrombin Time 25.4 #H Prothrombin Time Ratio 2.0 INR International Normalized Ratio 2.30 Sodium Level 120 L Potassium Level 3.5 Chloride Level 82 #L Carbon Dioxide Level 31 Anion Gap 7 Blood Urea Nitrogen 19 Creatinine 0.29 L Est Glomerular Filtrat Rate mL/min Glucose Level 122 # Calcium Level 7.1 L Medications Medication Current Medications Acetaminophen (Tylenol Tab) 650 mg Q4H PRN PO PAIN LEVEL 1-5/10 Last administered on 09/22/18 01:21; Admin Dose 650 MG; Start 09/06/18 at 15:30 Ascorbic Acid (Vitamin C) 500 mg DAILY PO Last administered on 09/25/18 08:52; Admin Dose 500 MG; Start 09/07/18 at 09:00 Atorvastatin Calcium (Lipitor) 80 mg QHS PO Last administered on 09/24/18 22:02; Admin Dose 80 MG; Start 09/06/18 at 21:00 Calcium/Vitamin D (Oyster Shell/ Vit-D (500/200)) 1 tab BID PO Last administered on 09/25/18 08:53; Admin Dose 1 TAB; Start 09/06/18 at 21:00 Fluoxetine HCl (Prozac) 10 mg DAILY PO Last administered on 09/25/18 08:52; Admin Dose 10 MG; Start 09/07/18 at 09:00 Primidone (Mysoline) 250 mg BID PO Last administered on 09/25/18 08:53; Admin Dose 250 MG; Start 09/06/18 at 21:00 Albuterol/ Ipratropium (Duoneb) 3 ml Q4H RESP THERAPY HHN Last administered on 09/25/18 13:47; Admin Dose 3 ML; Start 09/06/18 at 17:00 Promethazine HCl (Phenergan Liq) 6.25 mg TID PRN PO Cough Last administered on 09/17/18 18:22; Admin Dose 6.25 MG; Start 09/06/18 at 15:30 Albuterol/ Ipratropium (Duoneb) 3 ml Q4H RESP THERAPY PRN HHN SHORTNESS OF BREATH; Start 09/06/18 at 16:00 Pregabalin (Lyrica) 150 mg BID PO Last administered on 09/25/18 08:57; Admin Dose 150 MG; Start 09/07/18 at 10:30 Sulfasalazine (Azulfidine) 500 mg TID PO Last administered on 09/25/18 13:40; Admin Dose 500 MG; Start 09/07/18 at 13:00 Diltiazem HCl 125 ml @ 5 mls/hr TITRATE IV Last administered on 09/12/18 08:32; Admin Dose 5 MLS/HR; Start 09/09/18 at 11:30 Metoprolol Tartrate (Lopressor) 37.5 mg TID PO Last administered on 09/25/18 13:37; Admin Dose 37.5 MG; Start 09/12/18 at 13:00 Collagenase (Santyl) 1 applic DAILY TOP Last administered on 09/25/18 08:59; Admin Dose 1 APPLIC; Start 09/13/18 at 10:30 Collagenase (Santyl) 1 applic PRN PRN TOP WOUND CARE; Start 09/13/18 at 10:30 Bisacodyl (Dulcolax Supp) 10 mg DAILY PRN [place] constipation; Start 09/17/18 at 09:00 Tramadol HCl (Ultram) 50 mg Q6H PRN GTB MODERATE PAIN LEVEL 4-6 Last administered on 09/19/18 21:13; Admin Dose 50 MG; Start 09/17/18 at 18:00 Phenol (Chloraseptic Throat [place]) 2 spray Q2H PRN MT SORE THROAT Last administered on 09/24/18 05:14; Admin Dose 2 SPRAY; Start 09/17/18 at 21:00 Guaifenesin (Robitussin Liquid Cup) 400 mg BID PO Last administered on 09/25/18 08:58; Admin Dose 400 MG; Start 09/18/18 at 21:00 Morphine Sulfate (morphine) 2 mg Q3H PRN IV SEVERE PAIN LEVEL 7-10 Last ad ministered on 09/22/18 16:33; Admin Dose 2 MG; Start 09/19/18 at 16:00 IV Flush (NS 10 ml) 10 ml PRN PRN IV IV PROTOCOL; Start 09/20/18 at 18:00 Fluconazole (Diflucan) 100 mg DAILY PEG Last administered on 09/25/18 08:53; Admin Dose 100 MG; Start 09/22/18 at 14:00 Prednisone (Prednisone) 10 mg DAILY GTB Last administered on 09/25/18 08:52; Admin Dose 10 MG; Start 09/24/18 at 09:00 Docusate Sodium (Colace Liquid Cup) 200 mg BID PEG Last administered on 09/25/18 08:58; Admin Dose 200 MG; Start 09/23/18 at 21:00 Lansoprazole (Prevacid) 30 mg DAILY@06 PEG Last administered on 09/25/18 05 :51; Admin Dose 30 MG; Start 09/24/18 at 06:00 Furosemide (Lasix) 40 mg DAILY IV Last administered on 09/25/18 08:59; Admin Dose 40 MG; Start 09/24/18 at 14:00 Potassium Chloride (Potassium Chloride Pwd/Soln) 40 meq DAILY GTB Last administered on 09/25/18 08:56; Admin Dose 40 MEQ; Start 09/25/18 at 09:00 Alteplase, Recombinant (Cathflo (Activase)) 2 mg MAY REPEAT X1 PRN CATHETER IF CATHETER REMAINS OCCULUDED Last administered on 09/25/18 05:15; Admin Dose 2 MG; Start 09/24/18 at 16:00 SUSAN SAEED Sep 25, 2018 15:29
--- NOTE | 2018-09-25 16:54 | CONS ---
Assessment/Plan Assessment/Plan Assessment/Plan (Daily) IMP: 1. Aspiration events vs. transient mucus plugging--leading to intermittent resp insufficiency. He mental status places her at risk for both events. 2. s/p Lacunar CVA 3. Dementia 4. Hyponatremia 5. Dysphagia s/p PEG 6. HypoNa+ RECS: 1. Strict aspiration precautions 2. Aggressive CPT/BDs 3. Suctioning prn 4. CXR today 5. Would hold off on antibiotics 6. Free H20 restriction; check urine Na+ and Osm 7. Am labs Consultation Date/Type/Reason Admit Date/Time Sep 06, 2018 at 12:46 Date of Consultation: Sep 25, 2018 Type of Consult Pulmonary Date/Time of Note DATE: 09/25/18 TIME: 16:46 Hx of Present Illness Briefly, this is an 83-year-old female with a history of dementia, seizure d/o, atrial fibrillation, admitted 09/06/18 from [facility] for respiratory insufficiency. Her hospital course was complicated by multiple lacunar infarcts and worsening dysphagia requiring PEG placement. More recently, she has developed worsening respiratory insufficiency with concern for possible HCAP vs. aspiration. Subjective hx not possible: pt non-verbal Past Medical History as per HPI Home Meds Reported Medications Na Phos,M-B/Na Phos,Di-Ba (Fleet Enema Extra) 230 Ml Enema, 1 APPLIC RC Q2D, ENEMA 09/06/18 Bisacodyl* (Bisacodyl*) 10 Mg Supp, 10 MG OK DAILY, SUPP 09/06/18 Fluoxetine Hcl* (Fluoxetine Hcl*) 10 Mg Tablet, 10 MG PO DAILY, TAB 09/06/18 Magnesium Hydroxide* (Milk Of Magnesia*) 400 Mg/5 Ml Oral.susp, 30 ML PO DAILY, ML 09/06/18 Calcium Carbonate/Vitamin D3 (Calcium 500 + Vit D 200 Tablet) 1 Each Tablet, 1 EACH PO BID, TAB 09/06/18 Guaifenesin (Guaifenesin) 600 Mg Tablet.sa, 600 MG PO BID, TAB END DATE 09/08/18 09/06/18 Sulfasalazine* (Sulfazine*) 500 Mg Tablet, 500 MG PO TID, TAB 09/06/18 Ferrous Sulfate* (Ferrous Sulfate*) 325 Mg Tabec, 325 MG PO TID, TAB 09/06/18 Amino Acids/Protein Hydrolys (PRO-STAT LIQUID) 30 Ml Liquid.pkt, 30 ML PO TID 09/06/18 Metoprolol Tartrate* (Lopressor*) 25 Mg Tab, 25 MG PO BID PRN for HOLD IF SBP<110, #60 TAB 09/06/18 Hydralazine Hcl* (Hydralazine Hcl*) 25 Mg Tab, 25 MG PO QID PRN for FOR SBP>160, #60 TAB 09/06/18 Folic Acid* (Folic Acid*) 1 Mg Tablet, 1 MG PO DAILY, TAB 09/06/18 Ergocalciferol (Vitamin D2) (VITAMIN D2) 50,000 Unit Capsule, 81541 UNIT PO Q MON, CAP 09/06/18 Cyanocobalamin* (Vitamin B-12*) 1,000 Mcg Tablet.sa, 1000 MCG PO DAILY, TAB 09/06/18 Atorvastatin* (Atorvastatin*) 80 Mg Tablet, 80 MG PO QHS, #30 TAB 09/06/18 Amlodipine Besylate* (Norvasc*) 5 Mg Tablet, 5 MG PO DAILY, TAB HOLD IF SBP<110 09/06/18 Primidone* (Mysoline*) 250 Mg Tablet, 250 MG PO BID, TAB 09/06/18 Pregabalin* (Lyrica*) 75 Mg Capsule, 150 MG PO BID, CAP 09/06/18 Prednisone* (Prednisone*) 5 Mg Tab, 5 MG PO DAILY, TAB 09/06/18 Acetaminophen* (Tylenol*) 325 Mg Tablet, 650 MG PO Q4H PRN for PAIN LEVEL 1- 5/10, TAB 09/06/18 Multivitamin with Minerals (Multivitamins with Minerals) 1 Each Tablet, 1 EACH PO DAILY, TAB 09/06/18 Docusate Sodium* (Colace*) 100 Mg Capsule, 200 MG PO BID, #60 CAP 09/06/18 Ascorbic Acid (Vitamin C) 500 Mg Tab, 500 MG PO DAILY, TAB 09/06/18 Medications Current Medications Acetaminophen (Tylenol Tab) 650 mg Q4H PRN PO PAIN LEVEL 1-5/10 Last administered on 09/22/18at 01:21; Admin Dose 650 MG; Start 09/06/18 at 15:30 Ascorbic Acid (Vitamin C) 500 mg DAILY PO Last administered on 09/25/18at 08:52; Admin Dose 500 MG; Start 09/07/18 at 09:00 Atorvastatin Calcium (Lipitor) 80 mg QHS PO Last administered on 09/24/18 22:02; Admin Dose 80 MG; Start 09/06/18 at 21:00 Calcium/Vitamin D (Oyster Shell/ Vit-D (500/200)) 1 tab BID PO Last administered on 09/25/18 08:53; Admin Dose 1 TAB; Start 09/06/18 at 21:00 Fluoxetine HCl (Prozac) 10 mg DAILY PO Last administered on 09/25/18 08:52; Admin Dose 10 MG; Start 09/07/18 at 09:00 Primidone (Mysoline) 250 mg BID PO Last administered on 09/25/18 08:53; Admin Dose 250 MG; Start 09/06/18 at 21:00 Albuterol/ Ipratropium (Duoneb) 3 ml Q4H RESP THERAPY HHN Last administered on 09/25/18 16:16; Admin Dose 3 ML; Start 09/06/18 at 17:00 Promethazine HCl (Phenergan Liq) 6.25 mg TID PRN PO Cough Last administered on 09/17/18 18:22; Admin Dose 6.25 MG; Start 09/06/18 at 15:30 Albuterol/ Ipratropium (Duoneb) 3 ml Q4H RESP THERAPY PRN HHN SHORTNESS OF BREATH; Start 09/06/18 at 16:00 Pregabalin (Lyrica) 150 mg BID PO Last administered on 09/25/18 08:57; Admin Dose 150 MG; Start 09/07/18 at 10:30 Sulfasalazine (Azulfidine) 500 mg TID PO Last administered on 09/25/18 13:40; Admin Dose 500 MG; Start 09/07/18 at 13:00 Diltiazem HCl 125 ml @ 5 mls/hr TITRATE IV Last administered on 09/12/18 08:32; Admin Dose 5 MLS/HR; Start 09/09/18 at 11:30 Metoprolol Tartrate (Lopressor) 37.5 mg TID PO Last administered on 09/25/18 13:37; Admin Dose 37.5 MG; Start 09/12/18 at 13:00 Collagenase (Santyl) 1 applic DAILY TOP Last administered on 09/25/18 08:59; Admin Dose 1 APPLIC; Start 09/13/18 at 10:30 Collagenase (Santyl) 1 applic PRN PRN TOP WOUND CARE; Start 09/13/18 at 10:30 Bisacodyl (Dulcolax Supp) 10 mg DAILY PRN [place] constipation Last administered on 09/25/18 15:51; Admin Dose 10 MG; Start 09/17/18 at 09:00 Tramadol HCl (Ultram) 50 mg Q6H PRN GTB MODERATE PAIN LEVEL 4-6 Last administered on 09/19/18 21:13; Admin Dose 50 MG; Start 09/17/18 at 18:00 Phenol (Chloraseptic Throat [place]) 2 spray Q2H PRN [place] SORE THROAT Last administered on 09/24/18 05:14; Admin Dose 2 SPRAY; Start 09/17/18 at 21:00 Guaifenesin (Robitussin Liquid Cup) 400 mg BID PO Last administered on 09/25/18 08:58; Admin Dose 400 MG; Start 09/18/18 at 21:00 Morphine Sulfate (morphine) 2 mg Q3H PRN IV SEVERE PAIN LEVEL 7-10 Last administered on 09/22/18 16:33; Admin Dose 2 MG; Start 09/19/18 at 16:00 IV Flush (NS 10 ml) 10 ml PRN PRN IV IV PROTOCOL; Start 09/20/18 at 18:00 Fluconazole (Diflucan) 100 mg DAILY PEG Last administered on 09/25/18 08:53; Admin Dose 100 MG; Start 09/22/18 at 14:00 Prednisone (Prednisone) 10 mg DAILY GTB Last administered on 09/25/18 08:52; Admin Dose 10 MG; Start 09/24/18 at 09:00 Docusate Sodium (Colace Liquid Cup) 200 mg BID PEG Last administered on 09/25/18 08:58; Admin Dose 200 MG; Start 09/23/18 at 21:00 Lansoprazole (Prevacid) 30 mg DAILY@06 PEG Last administered on 09/25/18 05:51; Admin Dose 30 MG; Start 09/24/18 at 06:00 Furosemide (Lasix) 40 mg DAILY IV Last administered on 09/25/18 08:59; Admin Dose 40 MG; Start 09/24/18 at 14:00 Potassium Chloride (Potassium Chloride Pwd/Soln) 40 meq DAILY GTB Last administered on 09/25/18at 08:56; Admin Dose 40 MEQ; Start 09/25/18 at 09:00 Alteplase, Recombinant (Cathflo (Activase)) 2 mg MAY REPEAT X1 PRN CATHETER IF CATHETER REMAINS OCCULUDED Last administered on 09/25/18at 05:15; Admin Dose 2 MG; Start 09/24/18 at 16:00 Allergies: Coded Allergies: No Known Allergy (Unverified , 09/06/18) Past Surgical History unknown Social History Alcohol Use: none Smoking Status: Never smoker Drug Use: none Exam/Review of Systems Exam Vitals Vital Signs Date Temp Pulse Resp B/P (MAP) Pulse Ox O2 O2 Flow FiO2 Time Delivery Rate 09/25/18 95 16 96 Nasal 3.0 16:17 Cannula 09/25/18 98.1 107/56 15:22 (73) Intake and Output 09/24/18 09/24/18 09/25/18 1515:00 23:00 07:00 IntakeIntake Total 780 ml 725 ml OutputOutput Total 950 ml 1050 ml BalanceBalance -170 ml -325 ml Constitutional: alert Head: normocephalic Eyes: nl conjunctiva, EOMI ENMT: nl external ears & nose, nl lips & teeth, mucosa pink and moist Neck: supple, non-tender Respiratory: congested cough, diminished breath sounds Cardiovascular: irregular rhythm, systolic murmur Gastrointestinal: soft, nl liver, spleen Musculoskeletal: nl extremities to inspection Extremities: normal pulses, edema 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: confused, focal weakness Results Result Diagram: 09/25/1848 09/25/18 0548 Results 24hrs Laboratory Tests Test 09/25/18 05:48 White Blood Count 9.7 Red Blood Count 3.75 L Hemoglobin 9.6 L Hematocrit 30.7 L Mean Corpuscular Volume 81.9 L Mean Corpuscular Hemoglobin 25.6 L Mean Corpuscular Hemoglobin Concent 31.3 L Red Cell Distribution Width 21.4 H Platelet Count 167 Mean Platelet Volume 10.4 Immature Granulocytes % 2.100 H Neutrophils % 65.7 Lymphocytes % 16.6 Monocytes % 12.0 H Eosinophils % 3.2 Basophils % 0.4 Nucleated Red Blood Cells % 0.0 Immature Granulocytes # 0.200 H Neutrophils # 6.4 Lymphocytes # 1.6 Monocytes # 1.2 H Eosinophils # 0.3 Basophils # 0.0 Nucleated Red Blood Cells # 0.0 Prothrombin Time 25.4 #H Prothrombin Time Ratio 2.0 INR International Normalized Ratio 2.30 Sodium Level 120 L Potassium Level 3.5 Chloride Level 82 #L Carbon Dioxide Level 31 Anion Gap 7 Blood Urea Nitrogen 19 Creatinine 0.29 L Est Glomerular Filtrat Rate mL/min Glucose Level 122 # Calcium Level 7.1 L Medications Medication Current Medications Acetaminophen (Tylenol Tab) 650 mg Q4H PRN PO PAIN LEVEL 1-5/10 Last administer ed on 09/22/18 01:21; Admin Dose 650 MG; Start 09/06/18 at 15:30 Ascorbic Acid (Vitamin C) 500 mg DAILY PO Last administered on 09/25/18 08:52; Admin Dose 500 MG; Start 09/07/18 at 09:00 Atorvastatin Calcium (Lipitor) 80 mg QHS PO Last administered on 09/24/18 22:02; Admin Dose 80 MG; Start 09/06/18 at 21:00 Calcium/Vitamin D (Oyster Shell/ Vit-D (500/200)) 1 tab BID PO Last administered on 09/25/18 08:53; Admin Dose 1 TAB; Start 09/06/18 at 21:00 Fluoxetine HCl (Prozac) 10 mg DAILY PO Last administered on 09/25/18 08:52; Admin Dose 10 MG; Start 09/07/18 at 09:00 Primidone (Mysoline) 250 mg BID PO Last administered on 09/25/18 08:53; Admin Dose 250 MG; Start 09/06/18 at 21:00 Albuterol/ Ipratropium (Duoneb) 3 ml Q4H RESP THERAPY HHN Last administered on 09/25/18 16:16; Admin Dose 3 ML; Start 09/06/18 at 17:00 Promethazine HCl (Phenergan Liq) 6.25 mg TID PRN PO Cough Last administered on 09/17/18 18:22; Admin Dose 6.25 MG; Start 09/06/18 at 15:30 Albuterol/ Ipratropium (Duoneb) 3 ml Q4H RESP THERAPY PRN HHN SHORTNESS OF BREATH; Start 09/06/18 at 16:00 Pregabalin (Lyrica) 150 mg BID PO Last administered on 09/25/18 08:57; Admin Dose 150 MG; Start 09/07/18 at 10:30 Sulfasalazine (Azulfidine) 500 mg TID PO Last administered on 09/25/18 13:40; Admin Dose 500 MG; Start 09/07/18 at 13:00 Diltiazem HCl 125 ml @ 5 mls/hr TITRATE IV Last administered on 09/12/18 08:32; Admin Dose 5 MLS/HR; Start 09/09/18 at 11:30 Metoprolol Tartrate (Lopressor) 37.5 mg TID PO Last administered on 09/25/18 13:37; Admin Dose 37.5 MG; Start 09/12/18 at 13:00 Collagenase (Santyl) 1 applic DAILY TOP Last administered on 09/25/18 08:59; Admin Dose 1 APPLIC; Start 09/13/18 at 10:30 Collagenase (Santyl) 1 applic PRN PRN TOP WOUND CARE; Start 09/13/18 at 10:30 Bisacodyl (Dulcolax Supp) 10 mg DAILY PRN [place] constipation Last administered on 09/25/18 15:51; Admin Dose 10 MG; Start 09/17/18 at 09:00 Tramadol HCl (Ultram) 50 mg Q6H PRN GTB MODERATE PAIN LEVEL 4-6 Last administered on 09/19/18 21:13; Admin Dose 50 MG; Start 09/17/18 at 18:00 Phenol (Chloraseptic Throat [place]) 2 spray Q2H PRN [place] SORE THROAT Last administered on 09/24/18 05:14; Admin Dose 2 SPRAY; Start 09/17/18 at 21:00 Guaifenesin (Robitussin Liquid Cup) 400 mg BID PO Last administered on 09/25/18 08:58; Admin Dose 400 MG; Start 09/18/18 at 21:00 Morphine Sulfate (morphine) 2 mg Q3H PRN IV SEVERE PAIN LEVEL 7-10 Last administered on 09/22/18 16:33; Admin Dose 2 MG; Start 09/19/18 at 16:00 IV Flush (NS 10 ml) 10 ml PRN PRN IV IV PROTOCOL; Start 09/20/18 at 18:00 Fluconazole (Diflucan) 100 mg DAILY PEG Last administered on 09/25/18 08:53; Admin Dose 100 MG; Start 09/22/18 at 14:00 Prednisone (Prednisone) 10 mg DAILY GTB Last administered on 09/25/18 08:52; Admin Dose 10 MG; Start 09/24/18 at 09:00 Docusate Sodium (Colace Liquid Cup) 200 mg BID PEG Last administered on 09/25/18 08:58; Admin Dose 200 MG; Start 09/23/18 at 21:00 Lansoprazole (Prevacid) 30 mg DAILY@06 PEG Last administered on 09/25/18 05:51; Admin Dose 30 MG; Start 09/24/18 at 06:00 Furosemide (Lasix) 40 mg DAILY IV Last administered on 09/25/18 08:59; Admin Dose 40 MG; Start 09/24/18 at 14:00 Potassium Chloride (Potassium Chloride Pwd/Soln) 40 meq DAILY GTB Last administered on 09/25/18 08:56; Admin Dose 40 MEQ; Start 09/25/18 at 09:00 Alteplase, Recombinant (Cathflo (Activase)) 2 mg MAY REPEAT X1 PRN CATHETER IF CATHETER REMAINS OCCULUDED Last administered on 09/25/18 05:15; Admin Dose 2 MG; Start 09/24/18 at 16:00 JESUS GUEVARA MD Sep 25, 2018 16:54
[2018-09-25] MEDS ORDERED: WARFARIN 3 MG TAB GTB ONE (18:30)
[2018-09-25] MEDS: ATORVASTATIN 80 MG TAB PO SCH (20:27)
--- NOTE | 2018-09-25 23:22 | PN ---
DATE: 09/25/2018 SUBJECTIVE: The patient is more awake and responsive, less cough today. VITAL SIGNS: Temperature 98.1, blood pressure , O2 saturation 96% on 3 liters nasal cannula. NECK: JVD is not increased. CHEST: Decreased breath sounds at bases. Occasional wheezes. HEART: S1, S2 with no definite gallops. Regular rhythm. ABDOMEN: Soft, nontender. EXTREMITIES: Trace edema. Homans negative. LABORATORY DATA: WBC 9.7, hematocrit 30.7, platelet count 167,000. Sodium 120, potassium 3.5, BUN 1 9, creatinine 0.29. INR is 2.3. Dr. Tovar's pulmonary consultation and recommendation greatly appreciated. IMPRESSION: 1. Severe hyponatremia, possible SIADH given the recent cerebrovascular accident plus diuretic effec t. 2. Acute cerebrovascular accident involving the right frontal and parietal lobes lacunar infracts, s tatus post prior cerebrovascular accident. 3. Atrial fibrillation. 4. Recurrent aspiration. PLAN: Check serum and urine osmolalities. Restrict fluid intake. Follow recommendations per Dr. Julio lerner. Dictated By: NADINE JAMES MD SR/NTS Conf#: [id number] DID#: [id number]
[2018-09-26] VITALS (12 sets, daily range): BP systolic 103–130; BP diastolic 56–63; PULSE 77–101; RESP 18–20
[2018-09-26] MEDS: ALBUTEROL/IPRATROPIUM (NEB) 3 ML AMP HHN SCH ×6 (01:27→21:29)
[2018-09-26] MEDS: LANSOPRAZOLE 30 MG CAP PEG SCH (05:39)
[2018-09-26] MEDS: DOCUSATE SODIUM 10 MG/ML (10ML CUP) PEG SCH ×2 (08:36→20:07)
[2018-09-26] MEDS: GUAIFENESIN 20 MG/ML 5ML CUP PO SCH ×2 (08:36→20:07)
[2018-09-26] MEDS: POTASSIUM CHLORIDE 20 MEQ POWDER FOR ORAL SOLN GTB SCH (08:37)
[2018-09-26] MEDS: FUROSEMIDE 40 MG INJ IV SCH (08:37)
[2018-09-26] MEDS: COLLAGENASE 5 GM (UD JAR) TOP SCH (08:43)
[2018-09-26] MEDS: CALCIUM/VITAMIN D (500/200) TAB PO SCH ×2 (08:47→20:08)
[2018-09-26] MEDS: METOPROLOL 25 MG TAB PO SCH ×3 (08:48→20:08)
[2018-09-26] MEDS: FLUCONAZOLE 100 MG TAB PEG SCH (08:48)
[2018-09-26] MEDS: SULFASALAZINE 500 MG TAB PO SCH ×3 (08:48→20:09)
[2018-09-26] MEDS: ASCORBIC ACID 500 MG TAB PO SCH (08:48)
[2018-09-26] MEDS: PRIMIDONE 250 MG TAB PO SCH ×2 (08:49→20:08)
[2018-09-26] MEDS: FLUOXETINE 10 MG CAP PO SCH (08:49)
[2018-09-26] MEDS: PREGABALIN 75 MG CAP PO SCH ×2 (08:52→20:08)
[2018-09-26] MEDS: ACETAMINOPHEN 325 MG TAB PO PRN ×2 (09:17→20:07)
--- NOTE | 2018-09-26 12:21 | CONS ---
Assessment/Plan Assessment/Plan Hospital Course (Demo Recall) 83 yo female Interval Hx: no acute changes. Tolerating tube feeds. 2 BM, no melena or tiffanie tochezia. 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 Dysphagia. -s/p PEG 09/20 2. S/P Cerebrovascular accident 2 months ago 3. Escherichia coli infection. 4. Bronchitis. 5. Seizure disorder. 6. Atrial fibrillation. 7. Recurrent aspiration pneumonia PLAN: AM labs, monitor HH Continue with tube feeds, monitor residuals q 4 hours, titrate to goal if residuals less than 100cc. Abdominal binder at all times On Coumadin, monitor for GI bleeding Pt examined and plan of care discussed with Dr. Montalvo Consultation Date/Type/Reason Admit Date/Time Sep 06, 2018 at 12:46 Initial Consult Date 09/11/18 Requesting Provider: NADINE JAMES MD Date/Time of Note DATE: 09/26/18 TIME: 12:16 Exam/Review of Systems Exam Vitals Vital Signs Date Temp Pulse Resp B/P (MAP) Pulse Ox O2 O2 Flow FiO2 Time Delivery Rate 09/26/18 99.4 85 18 130/58 99 Nasal 11:41 (82) Cannula 09/26/18 4.0 09:20 Intake and Output 09/25/18 09/25/18 09/26/18 1515:00 23:00 07:00 IntakeIntake Total 1120 ml OutputOutput Total 500 ml 250 ml BalanceBalance -500 ml 870 ml Constitutional: alert Psych: no complaints Head: normocephalic Eyes: PERRL ENMT: mucosa pink and moist Respiratory: normal air movement Gastrointestinal: soft, non-tender, other (g tube site clean and dry) 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: other (alert but does not follow commands or answer my questions. Tracks) Results Result Diagram: 09/26/18 0605 09/26/18 0605 Results 24hrs Laboratory Tests Test 09/25/18 18:37 09/26/18 05:00 09/26/18 06:05 Osmolality 279 L Urine Osmolality 518 Urine Random Sodium < 13 L Blood Gas Specimen Source Blood arterial Arterial Blood Date Drawn 09/26/2018 4:30:15 AM Arterial Blood pH 7.519 H (Temp corrected) Arterial Blood pCO2 43.7 (Temp correct) Arterial Blood pO2 115.5 H (Temp corrected) Arterial Blood HCO3 34.8 H Arterial Blood Base Excess 10.8 H Arterial Blood 98.8 Oxygen Saturation Jesus Test ACCEPTAB Arterial Blood Gas Right Radial Puncture Site Arterial 0.9 Blood Carboxyhemoglobin Arterial Blood Methemoglobin 0.3 Blood Gas A-a O2 47.1 H Differential Oxyhemoglobin Percent 97.6 Blood Gas Temperature 37.0 Blood Gas Modality NASAL CANNULA FiO2 30.0 Blood Gas Notified Whom UP Blood Gas Notified Time 09/26/2018 4:48:49 AM White Blood Count 9.3 Red Blood Count 4.22 Hemoglobin 10.8 L Hematocrit 34.2 L Mean Corpuscular Volume 81.0 L Mean Corpuscular Hemoglobin 25.6 L Mean Corpuscular 31.6 L Hemoglobin Concent Red Cell Distribution Width 21.7 H Platelet Count 179 Mean Platelet Volume 11.4 H Immature Granulocytes % 2.000 H Neutrophils % 70.4 Lymphocytes % 14.5 L Monocytes % 9.4 Eosinophils % 3.3 Basophils % 0.4 Nucleated Red Blood Cells % 0.0 Immature Granulocytes # 0.190 H Neutrophils # 6.5 Lymphocytes # 1.4 Monocytes # 0.9 Eosinophils # 0.3 Basophils # 0.0 Nucleated Red Blood Cells # 0.0 Prothrombin Time 32.7 #H Prothrombin Time Ratio 2.6 INR International 3.19 Normalized Ratio Sodium Level 132 L Potassium Level 4.0 Chloride Level 89 L Carbon Dioxide Level 37 H Anion Gap 6 Blood Urea Nitrogen 21 H Creatinine 0.30 L Est Glomerular Filtrat Rate mL/min Glucose Level 179 Calcium Level 8.6 Medications Medication Current Medications Acetaminophen (Tylenol Tab) 650 mg Q4H PRN PO PAIN LEVEL 1-5/10 Last administered on 09/26/18at 09:17; Admin Dose 650 MG; Start 09/06/18 at 15:30 Ascorbic Acid (Vitamin C) 500 mg DAILY PO Last administered on 09/26/18 08:48; Admin Dose 500 MG; Start 09/07/18 at 09:00 Atorvastatin Calcium (Lipitor) 80 mg QHS PO Last administered on 09/25/18 20:27; Admin Dose 80 MG; Start 09/06/18 at 21:00 Calcium/Vitamin D (Oyster Shell/ Vit-D (500/200)) 1 tab BID PO Last administered on 09/26/18 08:47; Admin Dose 1 TAB; Start 09/06/18 at 21:00 Fluoxetine HCl (Prozac) 10 mg DAILY PO Last administered on 09/26/18 08:49; Admin Dose 10 MG; Start 09/07/18 at 09:00 Primidone (Mysoline) 250 mg BID PO Last administered on 09/26/18 08:49; Admin Dose 250 MG; Start 09/06/18 at 21:00 Albuterol/ Ipratropium (Duoneb) 3 ml Q4H RESP THERAPY HHN Last administered on 09/26/18 10:02; Admin Dose 3 ML; Start 09/06/18 at 17:00 Promethazine HCl (Phenergan Liq) 6.25 mg TID PRN PO Cough Last administered on 09/17/18 18:22; Admin Dose 6.25 MG; Start 09/06/18 at 15:30 Albuterol/ Ipratropium (Duoneb) 3 ml Q4H RESP THERAPY PRN HHN SHORTNESS OF BREATH; Start 09/06/18 at 16:00 Pregabalin (Lyrica) 150 mg BID PO Last administered on 09/26/18 08:52; Admin Dose 150 MG; Start 09/07/18 at 10:30 Sulfasalazine (Azulfidine) 500 mg TID PO Last administered on 09/26/18 08:48; Admin Dose 500 MG; Start 09/07/18 at 13:00 Diltiazem HCl 125 ml @ 5 mls/hr TITRATE IV Last administered on 09/12/18 08:32; Admin Dose 5 MLS/HR; Start 09/09/18 at 11:30 Metoprolol Tartrate (Lopressor) 37.5 mg TID PO Last administered on 09/26/18 08:48; Admin Dose 37.5 MG; Start 09/12/18 at 13:00 Collagenase (Santyl) 1 applic DAILY TOP Last administered on 09/26/18 08:43; Admin Dose 1 APPLIC; Start 09/13/18 at 10:30 Collagenase (Santyl) 1 applic PRN PRN TOP WOUND CARE; Start 09/13/18 at 10:30 Bisacodyl (Dulcolax Supp) 10 mg DAILY PRN [place] constipation Last administered on 09/25/18 15:51; Admin Dose 10 MG; Start 09/17/18 at 09:00 Tramadol HCl (Ultram) 50 mg Q6H PRN GTB MODERATE PAIN LEVEL 4-6 Last administered on 09/19/18 21:13; Admin Dose 50 MG; Start 09/17/18 at 18:00 Phenol (Chloraseptic Throat [place]) 2 spray Q2H PRN [place] SORE THROAT Last administered on 09/24/18 05:14; Admin Dose 2 SPRAY; Start 09/17/18 at 21:00 Guaifenesin (Robitussin Liquid Cup) 400 mg BID PO Last administered on 09/26/18 08:36; Admin Dose 400 MG; Start 09/18/18 at 21:00 Morphine Sulfate (morphine) 2 mg Q3H PRN IV SEVERE PAIN LEVEL 7-10 Last administered on 09/22/18 16:33; Admin Dose 2 MG; Start 09/19/18 at 16:00 IV Flush (NS 10 ml) 10 ml PRN PRN IV IV PROTOCOL; Start 09/20/18 at 18:00 Fluconazole (Diflucan) 100 mg DAILY PEG Last administered on 09/26/18 08:48; Admin Dose 100 MG; Start 09/22/18 at 14:00 Docusate Sodium (Colace Liquid Cup) 200 mg BID PEG Last administered on 09/26/18 08:36; Admin Dose 200 MG; Start 09/23/18 at 21:00 Lansoprazole (Prevacid) 30 mg DAILY@06 PEG Last administered on 09/26/18 05:39; Admin Dose 30 MG; Start 09/24/18 at 06:00 Furosemide (Lasix) 40 mg DAILY IV Last administered on 09/26/18 08:37; Admin Dose 40 MG; Start 09/24/18 at 14:00 Potassium Chloride (Potassium Chloride Pwd/Soln) 40 meq DAILY GTB Last administered on 09/26/18 08:37; Admin Dose 40 MEQ; Start 09/25/18 at 09:00 Alteplase, Recombinant (Cathflo (Activase)) 2 mg MAY REPEAT X1 PRN CATHETER IF CATHETER REMAINS OCCULUDED Last administered on 09/25/18 05:15; Admin Dose 2 MG; Start 09/24/18 at 16:00 SUSAN SAEED Sep 26, 2018 12:21
--- NOTE | 2018-09-26 15:16 | CONS ---
Consult Date/Type/Reason Admit Date/Time Sep 06, 2018 at 12:46 Initial Consult Date 09/25/18 Type of Consultation: Pulm Requesting Provider: NADINE JAMES MD Date/Time of Note DATE: 09/26/18 TIME: 15:13 Subjective No events overnight. Urine studies noted--> c/w hypovolemic hyponatremia. Objective Vitals Vital Signs Date Temp Pulse Resp B/P (MAP) Pulse Ox O2 O2 Flow FiO2 Time Delivery Rate 09/26/18 87 12:19 09/26/18 99.4 18 130/58 99 Nasal 11:41 (82) Cannula 09/26/18 4.0 09:20 Intake and Output 09/25/18 09/25/18 09/26/18 1414:59 22:59 06:59 IntakeIntake Total 1120 ml OutputOutput Total 500 ml 250 ml BalanceBalance -500 ml 870 ml Exam HEENT: Neck supple; no JVD; no LAD CVS: RRR, S1 and S2 CHEST: Bibasilar rales ABD: Soft, NT, + BS EXT: No c/c/e Results/Medications Result Diagram: 09/26/18 0605 09/26/18 0605 Results 24 hrs Laboratory Tests Test 09/25/18 18:33 09/25/18 18:37 09/26/18 05:00 09/26/18 06:05 Stool Occult NEGATIVE Blood Osmolality 279 L Urine Osmolality 518 Urine Random < 13 L Sodium Blood Gas Blood arterial Specimen Source Arterial Blood 09/26/2018 4:30:1 Date Drawn 5 AM Arterial Blood pH 7.519 H (Temp corrected) Arterial Blood 43.7 pCO2 (Temp correct) Arterial Blood 115.5 H pO2 (Temp corrected) Arterial Blood 34.8 H HCO3 Arterial Blood 10.8 H Base Excess Arterial Blood 98.8 Oxygen Saturation Jesus Test ACCEPTAB Arterial Blood Right Radial Gas Puncture Site Arterial 0.9 Blood Carboxyhemo globin Arterial Blood 0.3 Methemoglobin Blood Gas A-a O2 47.1 H Differential Oxyhemoglobin 97.6 Percent Blood Gas 37.0 Temperature Blood Gas NASAL CANNULA Modality FiO2 30.0 Blood Gas UP Notified Whom Blood Gas 09/26/2018 4:48:4 Notified Time 9 AM White Blood Count 9.3 Red Blood Count 4.22 Hemoglobin 10.8 L Hematocrit 34.2 L Mean Corpuscular 81.0 L Volume Mean Corpuscular 25.6 L Hemoglobin Mean Corpuscular 31.6 L Hemoglobin Concen t Red Cell 21.7 H Distribution Width Platelet Count 179 Mean Platelet 11.4 H Volume Immature 2.000 H Granulocytes % Neutrophils % 70.4 Lymphocytes % 14.5 L Monocytes % 9.4 Eosinophils % 3.3 Basophils % 0.4 Nucleated Red 0.0 Blood Cells % Immature 0.190 H Granulocytes # Neutrophils # 6.5 Lymphocytes # 1.4 Monocytes # 0.9 Eosinophils # 0.3 Basophils # 0.0 Nucleated Red 0.0 Blood Cells # Prothrombin Time 32.7 #H Prothrombin Time 2.6 Ratio INR International 3.19 Normalized Ratio Sodium Level 132 L Potassium Level 4.0 Chloride Level 89 L Carbon Dioxide 37 H Level Anion Gap 6 Blood Urea 21 H Nitrogen Creatinine 0.30 L Est Glomerular Filtrat Rate mL/min Glucose Level 179 Calcium Level 8.6 Home Meds Reported Medications Na Phos,M-B/Na Phos,Di-Ba (Fleet Enema Extra) 230 Ml Enema, 1 APPLIC RC Q2D, ENEMA 09/06/18 Bisacodyl* (Bisacodyl*) 10 Mg Supp, 10 MG UT DAILY, SUPP 09/06/18 Fluoxetine Hcl* (Fluoxetine Hcl*) 10 Mg Tablet, 10 MG PO DAILY, TAB 09/06/18 Magnesium Hydroxide* (Milk Of Magnesia*) 400 Mg/5 Ml Oral.susp, 30 ML PO DAILY, ML 09/06/18 Calcium Carbonate/Vitamin D3 (Calcium 500 + Vit D 200 Tablet) 1 Each Tablet, 1 EACH PO BID, TAB 09/06/18 Guaifenesin (Guaifenesin) 600 Mg Tablet.sa, 600 MG PO BID, TAB END DATE 09/08/18 09/06/18 Sulfasalazine* (Sulfazine*) 500 Mg Tablet, 500 MG PO TID, TAB 09/06/18 Ferrous Sulfate* (Ferrous Sulfate*) 325 Mg Tabec, 325 MG PO TID, TAB 09/06/18 Amino Acids/Protein Hydrolys (PRO-STAT LIQUID) 30 Ml Liquid.pkt, 30 ML PO TID 09/06/18 Metoprolol Tartrate* (Lopressor*) 25 Mg Tab, 25 MG PO BID PRN for HOLD IF SBP<110, #60 TAB 09/06/18 Hydralazine Hcl* (Hydralazine Hcl*) 25 Mg Tab, 25 MG PO QID PRN for FOR SBP>160, #60 TAB 09/06/18 Folic Acid* (Folic Acid*) 1 Mg Tablet, 1 MG PO DAILY, TAB 09/06/18 Ergocalciferol (Vitamin D2) (VITAMIN D2) 50,000 Unit Capsule, 54996 UNIT PO Q MON, CAP 09/06/18 Cyanocobalamin* (Vitamin B-12*) 1,000 Mcg Tablet.sa, 1000 MCG PO DAILY, TAB 09/06/18 Atorvastatin* (Atorvastatin*) 80 Mg Tablet, 80 MG PO QHS, #30 TAB 09/06/18 Amlodipine Besylate* (Norvasc*) 5 Mg Tablet, 5 MG PO DAILY, TAB HOLD IF SBP<110 09/06/18 Primidone* (Mysoline*) 250 Mg Tablet, 250 MG PO BID, TAB 09/06/18 Pregabalin* (Lyrica*) 75 Mg Capsule, 150 MG PO BID, CAP 09/06/18 Prednisone* (Prednisone*) 5 Mg Tab, 5 MG PO DAILY, TAB 09/06/18 Acetaminophen* (Tylenol*) 325 Mg Tablet, 650 MG PO Q4H PRN for PAIN LEVEL 1- 5/10, TAB 09/06/18 Multivitamin with Minerals (Multivitamins with Minerals) 1 Each Tablet, 1 EACH PO DAILY, TAB 09/06/18 Docusate Sodium* (Colace*) 100 Mg Capsule, 200 MG PO BID, #60 CAP 09/06/18 Ascorbic Acid (Vitamin C) 500 Mg Tab, 500 MG PO DAILY, TAB 09/06/18 Medications Current Medications Acetaminophen (Tylenol Tab) 650 mg Q4H PRN PO PAIN LEVEL 1-5/10 Last administered on 09/26/18at 09:17; Admin Dose 650 MG; Start 09/06/18 at 15:30 Ascorbic Acid (Vitamin C) 500 mg DAILY PO Last administered on 09/26/18at 08:48; Admin Dose 500 MG; Start 09/07/18 at 09:00 Atorvastatin Calcium (Lipitor) 80 mg QHS PO Last administered on 09/25/18at 20:27; Admin Dose 80 MG; Start 09/06/18 at 21:00 Calcium/Vitamin D (Oyster Shell/ Vit-D (500/200)) 1 tab BID PO Last administered on 09/26/18 08:47; Admin Dose 1 TAB; Start 09/06/18 at 21:00 Fluoxetine HCl (Prozac) 10 mg DAILY PO Last administered on 09/26/18 08:49; A dmin Dose 10 MG; Start 09/07/18 at 09:00 Primidone (Mysoline) 250 mg BID PO Last administered on 09/26/18 08:49; Admin Dose 250 MG; Start 09/06/18 at 21:00 Albuterol/ Ipratropium (Duoneb) 3 ml Q4H RESP THERAPY HHN Last administered on 09/26/18 12:35; Admin Dose 3 ML; Start 09/06/18 at 17:00 Promethazine HCl (Phenergan Liq) 6.25 mg TID PRN PO Cough Last administered on 09/17/18 18:22; Admin Dose 6.25 MG; Start 09/06/18 at 15:30 Albuterol/ Ipratropium (Duoneb) 3 ml Q4H RESP THERAPY PRN HHN SHORTNESS OF BREATH; Start 09/06/18 at 16:00 Pregabalin (Lyrica) 150 mg BID PO Last administered on 09/26/18 08:52; Admin Dose 150 MG; Start 09/07/18 at 10:30 Sulfasalazine (Azulfidine) 500 mg TID PO Last administered on 09/26/18 13:26; Admin Dose 500 MG; Start 09/07/18 at 13:00 Diltiazem HCl 125 ml @ 5 mls/hr TITRATE IV Last administered on 09/12/18 08:32; Admin Dose 5 MLS/HR; Start 09/09/18 at 11:30 Metoprolol Tartrate (Lopressor) 37.5 mg TID PO Last administered on 09/26/18 13:25; Admin Dose 37.5 MG; Start 09/12/18 at 13:00 Collagenase (Santyl) 1 applic DAILY TOP Last administered on 09/26/18 08:43; Admin Dose 1 APPLIC; Start 09/13/18 at 10:30 Collagenase (Santyl) 1 applic PRN PRN TOP WOUND CARE; Start 09/13/18 at 10:30 Bisacodyl (Dulcolax Supp) 10 mg DAILY PRN [place] constipation Last administered on 09/25/18 15:51; Admin Dose 10 MG; Start 09/17/18 at 09:00 Tramadol HCl (Ultram) 50 mg Q6H PRN GTB MODERATE PAIN LEVEL 4-6 Last administered on 09/19/18 21:13; Admin Dose 50 MG; Start 09/17/18 at 18:00 Phenol (Chloraseptic Throat [place]) 2 spray Q2H PRN [place] SORE THROAT Last admini stered on 09/24/18 05:14; Admin Dose 2 SPRAY; Start 09/17/18 at 21:00 Guaifenesin (Robitussin Liquid Cup) 400 mg BID PO Last administered on 09/26/18 08:36; Admin Dose 400 MG; Start 09/18/18 at 21:00 Morphine Sulfate (morphine) 2 mg Q3H PRN IV SEVERE PAIN LEVEL 7-10 Last administered on 09/22/18 16:33; Admin Dose 2 MG; Start 09/19/18 at 16:00 IV Flush (NS 10 ml) 10 ml PRN PRN IV IV PROTOCOL; Start 09/20/18 at 18:00 Fluconazole (Diflucan) 100 mg DAILY PEG Last administered on 09/26/18 08:48; Admin Dose 100 MG; Start 09/22/18 at 14:00 Docusate Sodium (Colace Liquid Cup) 200 mg BID PEG Last administered on 09/26/18 08:36; Admin Dose 200 MG; Start 09/23/18 at 21:00 Lansoprazole (Prevacid) 30 mg DAILY@06 PEG Last administered on 09/26/18 05:39; Admin Dose 30 MG; Start 09/24/18 at 06:00 Furosemide (Lasix) 40 mg DAILY IV Last administered on 09/26/18 08:37; Admin Dose 40 MG; Start 09/24/18 at 14:00 Potassium Chloride (Potassium Chloride Pwd/Soln) 40 meq DAILY GTB Last administered on 09/26/18 08:37; Admin Dose 40 MEQ; Start 09/25/18 at 09:00 Alteplase, Recombinant (Cathflo (Activase)) 2 mg MAY REPEAT X1 PRN CATHETER IF CATHETER REMAINS OCCULUDED Last administered on 4/27/19at 05:15; Admin Dose 2 MG; Start 09/24/18 at 16:00 Assessment/Plan Assessment/Plan (Daily) IMP: 1. Aspiration event vs. transient mucus plugging--leading to intermittent resp insufficiency. Her mental status places her at risk for both events. 2. s/p Lacunar CVA 3. Dementia 4. Hyponatremia--> hypovolemic 5. Dysphagia s/p PEG 6. Mild pulm edema RECS: 1. Strict aspiration precautions 2. Aggressive CPT/BDs 3. Suctioning prn by RT 4. Would follow serum Na+ more closely as rate of correction a bit fast 5. Hold coumadin and readjust given supra-therapeutic level JESUS GUEVARA MD Sep 26, 2018 15:16
--- NOTE | 2018-09-26 17:20 | PN ---
DATE: 09/26/2018 SUBJECTIVE: The patient is more awake and responsive, occasional cough. PHYSICAL EXAMINATION: VITAL SIGNS: Temperature in 99.4, blood pressure 130/58, O2 saturation 98% on nasal cannula at 4 lit ers. NECK: JVD is not increased. CHEST: Crackles in the bases. HEART: S1, S2 with no definite gallops. EXTREMITIES: No edema. Homans negative. LABORATORY DATA: PT/INR 3.19. Sodium 132, potassium 4.0, BUN 21, creatinine 0.30. WBC count 9.3, h ematocrit 34.2. Stool for OB is negative. IMAGING: Chest x-ray shows increased pulmonary vascular congestion. IMPRESSION: 1. Hyponatremia secondary to hypovolemia, improving. 2. Status post acute cerebrovascular accident. 3. Atrial fibrillation, well compensated. 4. Recurrent aspiration. PLAN: Continue diuretics. Closely monitor serum sodium. Her PT/INR 3.19, will hold Coumadin today. Recheck PT/INR tomorrow. Dictated By: NADINE JAMES MD, SR/KALE Conf#: [id number] DID#: [id number]
[2018-09-26] MEDS: traMADol 50 MG TAB GTB PRN (18:42)
[2018-09-26] MEDS: ATORVASTATIN 80 MG TAB PO SCH (20:08)
[2018-09-27] VITALS (11 sets, daily range): BP systolic 93–117; BP diastolic 56–61; PULSE 77–94; RESP 18–20
[2018-09-27] MEDS: ALBUTEROL/IPRATROPIUM (NEB) 3 ML AMP HHN SCH ×6 (01:14→21:44)
[2018-09-27] MEDS: LANSOPRAZOLE 30 MG CAP PEG SCH (06:11)
--- NOTE | 2018-09-27 08:14 | CONS ---
Assessment/Plan Assessment/Plan Hospital Course (Demo Recall) 83 yo female Interval Hx: no acute changes. Tolerating tube feeds. Neg FOB 1. Dysphagia. -s/p PEG 09/20 2. S/P Cerebrovascular accident 2 months ago 3. Escherichia coli infection. 4. Bronchitis. 5. Seizure disorder. 6. Atrial fibrillation. 7. Recurrent aspiration pneumonia 8. Anemia likely due to chronic disease -neg FOB PLAN: anemia work up monitor HH Continue with tube feeds, monitor residuals q 4 hours, titrate to goal if residuals less than 100cc. Abdominal binder at all times On Coumadin, monitor for GI bleeding Pt examined and plan of care discussed with Dr. Montalvo Consultation Date/Type/Reason Admit Date/Time Sep 06, 2018 at 12:46 Initial Consult Date 09/11/18 Requesting Provider: NADINE JAMES MD Date/Time of Note DATE: 09/27/18 TIME: 08:12 Exam/Review of Systems Exam Vitals Vital Signs Date Temp Pulse Resp B/P (MAP) Pulse Ox O2 O2 Flow FiO2 Time Delivery Rate 09/27/18 97.5 90 20 106/60 96 Nasal 07:30 (75) Cannula 09/27/18 3.0 05:19 09/27/18 30 01:14 Intake and Output 09/26/18 09/26/18 09/27/18 1414:59 22:59 06:59 IntakeIntake Total 910 ml OutputOutput Total 1000 ml 400 ml BalanceBalance -1000 ml 510 ml Constitutional: alert Head: normocephalic Eyes: nl sclera, PERRL ENMT: mucosa pink and moist Respiratory: normal air movement Cardiovascular: regular rate and rhythm Gastrointestinal: soft, non-tender Results Result Diagram: 09/27/18 0532 09/27/18 0532 Results 24hrs Laboratory Tests Test 09/26/18 16:48 09/27/18 05:32 Sodium Level 132 L 132 L Potassium Level 4.6 4.6 Chloride Level 89 L 90 L Carbon Dioxide Level 37 H 37 H Anion Gap 6 5 Blood Urea Nitrogen 23 H 22 H Creatinine 0.33 L 0.30 L Est Glomerular Filtrat Rate mL/min Glucose Level 170 168 Calcium Level 8.3 L 8.5 White Blood Count 8.2 Red Blood Count 4.11 L Hemoglobin 10.4 L Hematocrit 33.5 L Mean Corpuscular Volume 81.5 L Mean Corpuscular Hemoglobin 25.3 L Mean Corpuscular Hemoglobin Concent 31.0 L Red Cell Distribution Width 21.7 H Platelet Count 165 Mean Platelet Volume 10.5 H Immature Granulocytes % 1.900 H Neutrophils % 66.2 Lymphocytes % 17.5 Monocytes % 9.5 Eosinophils % 4.3 Basophils % 0.6 Nucleated Red Blood Cells % 0.0 Immature Granulocytes # 0.160 H Neutrophils # 5.4 Lymphocytes # 1.4 Monocytes # 0.8 Eosinophils # 0.4 Basophils # 0.1 Nucleated Red Blood Cells # 0.0 Prothrombin Time 35.4 H Prothrombin Time Ratio 2.8 INR International Normalized Ratio 3.54 Medications Medication Current Medications Acetaminophen (Tylenol Tab) 650 mg Q4H PRN PO PAIN LEVEL 1-5/10 Last administered on 09/26/18 20:07; Admin Dose 650 MG; Start 09/06/18 at 15:30 Ascorbic Acid (Vitamin C) 500 mg DAILY PO Last administered on 09/26/18 08:48; Admin Dose 500 MG; Start 09/07/18 at 09:00 Atorvastatin Calcium (Lipitor) 80 mg QHS PO Last administered on 09/26/18 20:08; Admin Dose 80 MG; Start 09/06/18 at 21:00 Calcium/Vitamin D (Oyster Shell/ Vit-D (500/200)) 1 tab BID PO Last administered on 09/26/18 20:08; Admin Dose 1 TAB; Start 09/06/18 at 21:00 Fluoxetine HCl (Prozac) 10 mg DAILY PO Last administered on 09/26/18 08:49; Admin Dose 10 MG; Start 09/07/18 at 09:00 Primidone (Mysoline) 250 mg BID PO Last administered on 09/26/18 20:08; Admin Dose 250 MG; Start 09/06/18 at 21:00 Albuterol/ Ipratropium (Duoneb) 3 ml Q4H RESP THERAPY HHN Last administered on 09/27/18 05:19; Admin Dose 3 ML; Start 09/06/18 at 17:00 Promethazine HCl (Phenergan Liq) 6.25 mg TID PRN PO Cough Last administered on 09/17/18 18:22; Admin Dose 6.25 MG; Start 09/06/18 at 15:30 Albuterol/ Ipratropium (Duoneb) 3 ml Q4H RESP THERAPY PRN HHN SHORTNESS OF BREATH; Start 09/06/18 at 16:00 Pregabalin (Lyrica) 150 mg BID PO Last administered on 09/26/18 20:08; Admin Dose 150 MG; Start 09/07/18 at 10:30 Sulfasalazine (Azulfidine) 500 mg TID PO Last administered on 09/26/18 20:09; Admin Dose 500 MG; Start 09/07/18 at 13:00 Diltiazem HCl 125 ml @ 5 mls/hr TITRATE IV Last administered on 09/12/18 08:32; Admin Dose 5 MLS/HR; Start 09/09/18 at 11:30 Metoprolol Tartrate (Lopressor) 37.5 mg TID PO Last administered on 09/26/18 20:08; Admin Dose 37.5 MG; Start 09/12/18 at 13:00 Collagenase (Santyl) 1 applic DAILY TOP Last administered on 09/26/18 08:43; Admin Dose 1 APPLIC; Start 09/13/18 at 10:30 Collagenase (Santyl) 1 applic PRN PRN TOP WOUND CARE; Start 09/13/18 at 10:30 Bisacodyl (Dulcolax Supp) 10 mg DAILY PRN [place] constipation Last administered on 09/25/18 15:51; Admin Dose 10 MG; Start 09/17/18 at 09:00 Tramadol HCl (Ultram) 50 mg Q6H PRN GTB MODERATE PAIN LEVEL 4-6 Last administered on 09/26/18 18:42; Admin Dose 50 MG; Start 09/17/18 at 18:00 Phenol (Chloraseptic Throat [place]) 2 spray Q2H PRN [place] SORE THROAT Last administered on 09/24/18 05:14; Admin Dose 2 SPRAY; Start 09/17/18 at 21:00 Guaifenesin (Robitussin Liquid Cup) 400 mg BID PO Last administered on 09/26/18 20:07; Admin Dose 400 MG; Start 09/18/18 at 21:00 Morphine Sulfate (morphine) 2 mg Q3H PRN IV SEVERE PAIN LEVEL 7-10 Last admi nistered on 09/22/18 16:33; Admin Dose 2 MG; Start 09/19/18 at 16:00 IV Flush (NS 10 ml) 10 ml PRN PRN IV IV PROTOCOL; Start 09/20/18 at 18:00 Fluconazole (Diflucan) 100 mg DAILY PEG Last administered on 09/26/18at 08:48; Admin Dose 100 MG; Start 09/22/18 at 14:00 Docusate Sodium (Colace Liquid Cup) 200 mg BID PEG Last administered on 09/26/18at 20:07; Admin Dose 200 MG; Start 09/23/18 at 21:00 Lansoprazole (Prevacid) 30 mg DAILY@06 PEG Last administered on 09/27/18at 06:11; Admin Dose 30 MG; Start 09/24/18 at 06:00 Furosemide (Lasix) 40 mg DAILY IV Last administered on 09/26/18at 08:37; Admin Dose 40 MG; Start 09/24/18 at 14:00 Potassium Chloride (Potassium Chloride Pwd/Soln) 40 meq DAILY GTB Last administered on 09/26/18at 08:37; Admin Dose 40 MEQ; Start 09/25/18 at 09:00 Alteplase, Recombinant (Cathflo (Activase)) 2 mg MAY REPEAT X1 PRN CATHETER IF CATHETER REMAINS OCCULUDED Last administered on 09/25/18at 05:15; Admin Dose 2 MG; Start 09/24/18 at 16:00 SUSAN SAEED Sep 27, 2018 08:14
[2018-09-27] MEDS: COLLAGENASE 5 GM (UD JAR) TOP SCH (09:00)
[2018-09-27] MEDS: DOCUSATE SODIUM 10 MG/ML (10ML CUP) PEG SCH ×2 (09:05→22:14)
[2018-09-27] MEDS: GUAIFENESIN 20 MG/ML 5ML CUP PO SCH ×2 (09:05→22:15)
[2018-09-27] MEDS: PREGABALIN 75 MG CAP PO SCH ×2 (09:06→22:19)
[2018-09-27] MEDS: SULFASALAZINE 500 MG TAB PO SCH ×3 (09:06→22:14)
[2018-09-27] MEDS: PRIMIDONE 250 MG TAB PO SCH ×2 (09:06→22:14)
[2018-09-27] MEDS: POTASSIUM CHLORIDE 20 MEQ POWDER FOR ORAL SOLN GTB SCH (09:06)
[2018-09-27] MEDS: FLUCONAZOLE 100 MG TAB PEG SCH (09:06)
[2018-09-27] MEDS: ASCORBIC ACID 500 MG TAB PO SCH (09:06)
[2018-09-27] MEDS: FLUOXETINE 10 MG CAP PO SCH (09:06)
[2018-09-27] MEDS: CALCIUM/VITAMIN D (500/200) TAB PO SCH ×2 (09:06→22:14)
[2018-09-27] MEDS: FUROSEMIDE 40 MG INJ IV SCH (09:07)
[2018-09-27] MEDS: METOPROLOL 25 MG TAB PO SCH ×3 (09:07→22:14)
--- NOTE | 2018-09-27 11:45 | CONS ---
Consult Date/Type/Reason Admit Date/Time Sep 06, 2018 at 12:46 Initial Consult Date 09/25/18 Type of Consult Pulmonary Requesting Provider: NADINE JAMES MD Date/Time of Note DATE: 09/27/18 TIME: 11:44 Subjective Patient is comfortable this morning no respiratory distress. Objective Vital Signs Date Temp Pulse Resp B/P (MAP) Pulse Ox O2 O2 Flow FiO2 Time Delivery Rate 09/27/18 98.6 79 20 108/56 96 Nasal 11:00 (73) Cannula 09/27/18 3.0 05:19 09/27/18 30 01:14 Intake and Output 09/26/18 09/26/18 09/27/18 1515:00 23:00 07:00 IntakeIntake Total 910 ml OutputOutput Total 1000 ml 400 ml BalanceBalance -1000 ml 510 ml Exam GENERAL: Elderly appearing lady comfortable at rest VITAL SIGNS: per chart NECK: Supple. No JVD or lymphadenopathy. CARDIAC EXAM: S1, S2. No added sounds or murmurs. CHEST: Diminished air entry at bases ABDOMEN: Soft, nontender. No guarding or rebound. EXTREMITIES: No cyanosis, clubbing or edema. NEUROLOGIC: Generalized weakness. Vent Setting Fraction of Inspired Oxygen pe: 30 Results/Medications Result Diagram: 09/27/18 0532 09/27/18 0532 Results 24 hrs Laboratory Tests Test 09/26/18 16:48 09/27/18 05:32 Sodium Level 132 L 132 L Potassium Level 4.6 4.6 Chloride Level 89 L 90 L Carbon Dioxide Level 37 H 37 H Anion Gap 6 5 Blood Urea Nitrogen 23 H 22 H Creatinine 0.33 L 0.30 L Est Glomerular Filtrat Rate mL/min Glucose Level 170 168 Calcium Level 8.3 L 8.5 White Blood Count 8.2 Red Blood Count 4.11 L Hemoglobin 10.4 L Hematocrit 33.5 L Mean Corpuscular Volume 81.5 L Mean Corpuscular Hemoglobin 25.3 L Mean Corpuscular Hemoglobin Concent 31.0 L Red Cell Distribution Width 21.7 H Platelet Count 165 Mean Platelet Volume 10.5 H Immature Granulocytes % 1.900 H Neutrophils % 66.2 Lymphocytes % 17.5 Monocytes % 9.5 Eosinophils % 4.3 Basophils % 0.6 Nucleated Red Blood Cells % 0.0 Immature Granulocytes # 0.160 H Neutrophils # 5.4 Lymphocytes # 1.4 Monocytes # 0.8 Eosinophils # 0.4 Basophils # 0.1 Nucleated Red Blood Cells # 0.0 Prothrombin Time 35.4 H Prothrombin Time Ratio 2.8 INR International Normalized Ratio 3.54 Medications Current Medications Acetaminophen (Tylenol Tab) 650 mg Q4H PRN PO PAIN LEVEL 1-5/10 Last administered on 09/26/18 20:07; Admin Dose 650 MG; Start 09/06/18 at 15:30 Ascorbic Acid (Vitamin C) 500 mg DAILY PO Last administered on 09/27/18 09:06; Admin Dose 500 MG; Start 09/07/18 at 09:00 Atorvastatin Calcium (Lipitor) 80 mg QHS PO Last administered on 09/26/18 20:08; Admin Dose 80 MG; Start 09/06/18 at 21:00 Calcium/Vitamin D (Oyster Shell/ Vit-D (500/200)) 1 tab BID PO Last administered on 09/27/18 09:06; Admin Dose 1 TAB; Start 09/06/18 at 21:00 Fluoxetine HCl (Prozac) 10 mg DAILY PO Last administered on 09/27/18 09:06; Ad min Dose 10 MG; Start 09/07/18 at 09:00 Primidone (Mysoline) 250 mg BID PO Last administered on 09/27/18 09:06; Admin Dose 250 MG; Start 09/06/18 at 21:00 Albuterol/ Ipratropium (Duoneb) 3 ml Q4H RESP THERAPY HHN Last administered on 09/27/18 09:45; Admin Dose 3 ML; Start 09/06/18 at 17:00 Promethazine HCl (Phenergan Liq) 6.25 mg TID PRN PO Cough Last administered on 09/17/18 18:22; Admin Dose 6.25 MG; Start 09/06/18 at 15:30 Albuterol/ Ipratropium (Duoneb) 3 ml Q4H RESP THERAPY PRN HHN SHORTNESS OF BREATH; Start 09/06/18 at 16:00 Pregabalin (Lyrica) 150 mg BID PO Last administered on 09/27/18 09:06; Admin Dose 150 MG; Start 09/07/18 at 10:30 Sulfasalazine (Azulfidine) 500 mg TID PO Last administered on 09/27/18 09:06; Admin Dose 500 MG; Start 09/07/18 at 13:00 Diltiazem HCl 125 ml @ 5 mls/hr TITRATE IV Last administered on 09/12/18 08:32; Admin Dose 5 MLS/HR; Start 09/09/18 at 11:30 Metoprolol Tartrate (Lopressor) 37.5 mg TID PO Last administered on 09/27/18 09:07; Admin Dose 37.5 MG; Start 09/12/18 at 13:00 Collagenase (Santyl) 1 applic DAILY TOP Last administered on 09/26/18 08:43; Admin Dose 1 APPLIC; Start 09/13/18 at 10:30 Collagenase (Santyl) 1 applic PRN PRN TOP WOUND CARE; Start 09/13/18 at 10:30 Bisacodyl (Dulcolax Supp) 10 mg DAILY PRN [place] constipation Last administered on 09/25/18 15:51; Admin Dose 10 MG; Start 09/17/18 at 09:00 Tramadol HCl (Ultram) 50 mg Q6H PRN GTB MODERATE PAIN LEVEL 4-6 Last administered on 09/26/18 18:42; Admin Dose 50 MG; Start 09/17/18 at 18:00 Phenol (Chloraseptic Throat [place]) 2 spray Q2H PRN [place] SORE THROAT Last adminis tered on 09/24/18 05:14; Admin Dose 2 SPRAY; Start 09/17/18 at 21:00 Guaifenesin (Robitussin Liquid Cup) 400 mg BID PO Last administered on 09/27/18 09:05; Admin Dose 400 MG; Start 09/18/18 at 21:00 Morphine Sulfate (morphine) 2 mg Q3H PRN IV SEVERE PAIN LEVEL 7-10 Last administered on 09/22/18 16:33; Admin Dose 2 MG; Start 09/19/18 at 16:00 IV Flush (NS 10 ml) 10 ml PRN PRN IV IV PROTOCOL; Start 09/20/18 at 18:00 Fluconazole (Diflucan) 100 mg DAILY PEG Last administered on 09/27/18 09:06; Admin Dose 100 MG; Start 09/22/18 at 14:00 Docusate Sodium (Colace Liquid Cup) 200 mg BID PEG Last administered on 09/27/18 09:05; Admin Dose 200 MG; Start 09/23/18 at 21:00 Lansoprazole (Prevacid) 30 mg DAILY@06 PEG Last administered on 09/27/18at 06:11; Admin Dose 30 MG; Start 09/24/18 at 06:00 Furosemide (Lasix) 40 mg DAILY IV Last administered on 09/27/18at 09:07; Admin Dose 40 MG; Start 09/24/18 at 14:00 Potassium Chloride (Potassium Chloride Pwd/Soln) 40 meq DAILY GTB Last administered on 09/27/18 09:06; Admin Dose 40 MEQ; Start 09/25/18 at 09:00 Alteplase, Recombinant (Cathflo (Activase)) 2 mg MAY REPEAT X1 PRN CATHETER IF CATHETER REMAINS OCCULUDED Last administered on 09/25/18at 05:15; Admin Dose 2 MG; Start 09/24/18 at 16:00 Assessment/Plan Hospital Course (Demo Recall) IMP: 1. Aspiration event vs. transient mucus plugging--leading to intermittent resp insufficiency. Her mental status places her at risk for both events. 2. s/p Lacunar CVA 3. Dementia 4. Hyponatremia--> hypovolemic 5. Dysphagia s/p PEG 6. Mild pulm edema RECS: 1. Strict aspiration precautions 2. Aggressive CPT/BDs 3. Suctioning prn by RT 4. Would follow serum Na+ more closely as rate of correction a bit fast 5. Hold coumadin and readjust given supra-therapeutic level ZOYA CUBA MD, [facility] Sep 27, 2018 11:45
--- NOTE | 2018-09-27 14:55 | PN ---
DATE: 09/27/2018 SUBJECTIVE: The patient appears more responsive, less cough. Dr. Cuba's pulmonary consultation and recommendation was greatly appreciated. OBJECTIVE: VITAL SIGNS: Temperature 98.6, blood pressure 108/56, O2 sats 96% on 3 liters' nasal cannula. NECK: JVD is not increased. CHEST: Decreased occasional wheezes anteriorly. Few crackles heard at the bases. HEART: S1, S2 heard with no definite gallops. ABDOMEN: Soft. EXTREMITIES: No edema. LABORATORY DATA: Sodium 132, potassium 4.6, BUN 22, creatinine 0.30. WBC of 8.2, hematocrit 33.5. IMPRESSION: 1. Hyponatremia, improving. 2. Status post acute cerebrovascular accident. 3. Atrial fibrillation, well compensated. 4. Recurrent aspiration. 5. Congestive heart failure, improving. PLAN: PT/INR is still high, so we will hold Coumadin today. Recheck PT/INR tomorrow along with elec trolytes. Initiate discharge planning. Dictated By: NDAINE JAMES MD SR/NTS Conf#: [id number] DID#: [id number] CC: ZOYA CUBA MD;*EndCC*
[2018-09-27] MEDS: ATORVASTATIN 80 MG TAB PO SCH (22:14)
[2018-09-28] VITALS (17 sets, daily range): BP systolic 85–139; BP diastolic 44–93; PULSE 82–99; RESP 16–20
[2018-09-28] MEDS: ALBUTEROL/IPRATROPIUM (NEB) 3 ML AMP HHN SCH ×6 (00:56→21:03)
[2018-09-28] MEDS: LANSOPRAZOLE 30 MG CAP PEG SCH (06:05)
--- NOTE | 2018-09-28 06:26 | CONS ---
DATE OF ADMISSION: 09/06/2018 DATE OF CONSULTATION: HISTORY OF PRESENT ILLNESS: The patient is 83 years old status post atrial fibrillation, stroke, dys phagia, PEG tube feeding, seizure, dementia, hypotension, mild pulmonary edema, aspiration versus tra nsient mucous plugging. MEDICATIONS: The patient's current medications include: 1. Lasix 40 mg once a day. 2. Potassium chloride 40 mEq. 3. Prevacid 30 mg once a day. 4. Colace 200 mg twice a day. 5. Diflucan 100 mg once a day. 6. Morphine 2 mg every 3 hours as needed. 7. Ultram 50 mg every 6 hours. 8. Lopressor 37.5 mg once a day. 9. Lyrica 150 mg twice a day. 10. Prozac 10 mg once a day. 11. Lipitor 80 mg once a day. 12. Primidone ____ mg twice a day. PHYSICAL EXAMINATION: GENERAL: The patient is alert, awake, following simple commands x2. Cranial nerve II: Pupils equal on both sides, reactive to light. Cranial nerves III, IV and : Extraocular muscles intact. Cran ial nerve V: Equal sensation to face. Cranial nerve VII: Symmetrical face. Cranial nerve VIII: D ecreased hearing bilaterally. Cranial nerves IX and X: Elevates palate. Cranial XI: Elevates shou lder 5/5. Cranial nerve XII: With straight tongue. MOTOR: Left side 4/5, right side with 1/5. Sensation decreased in the right side for light touch an d temperature. COORDINATION: Crypii-rs-rwwy test intact. HEART: Regular rate and rhythm. LUNGS: Equal breath sounds. ABDOMEN: Soft, relaxed, nondistended. No tenderness. ASSESSMENT AND PLAN: 1. The patient is an 83-year-old status post acute stroke. Continue the patient on Coumadin. Keep INR between 2 to 3. History of dysphagia, status post PEG tube feeding. 2. History of seizure in which the patient under Lyrica 150 as well as Primidone 250 twice a day. 3. 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 4. Keep the patient under fall precaution and seizure precaution. 5. Dyslipidemia. Continue the patient on Lipitor 80 mg once a day. 6. Depression with the patient on Prozac. Dictated By: JSEUS ZAVALA/NTS Conf#: [id number] [facility]#: [id number]
--- NOTE | 2018-09-28 08:24 | CONS ---
Assessment/Plan Assessment/Plan Hospital Course (Demo Recall) 83 yo female Interval Hx: no acute changes. Tolerating tube feeds. Neg FOB 1. Dysphagia. -s/p PEG 09/20 2. S/P Cerebrovascular accident 2 months ago 3. Escherichia coli infection. 4. Bronchitis. 5. Seizure disorder. 6. Atrial fibrillation. 7. Recurrent aspiration pneumonia 8. Anemia likely due to chronic disease -neg FOB, Iron profile and ferritin wnl, pending b12 and folate PLAN: monitor HH Continue with tube feeds, monitor residuals q 4 hours, titrate to goal if residuals less than 100cc. Abdominal binder at all times On Coumadin, monitor for GI bleeding Pt examined and plan of care discussed with Dr. Montavlo Consultation Date/Type/Reason Admit Date/Time Sep 06, 2018 at 12:46 Initial Consult Date 09/11/18 Requesting Provider: NADINE JAMES MD Date/Time of Note DATE: 09/28/18 TIME: 08:23 Exam/Review of Systems Exam Vitals Vital Signs Date Temp Pulse Resp B/P (MAP) Pulse Ox O2 O2 Flow FiO2 Time Delivery Rate 09/28/18 98.1 91 18 93/51 (65) 93 07:28 09/28/18 Nasal 3.0 04:37 Cannula 09/28/18 30 04:37 Intake and Output 09/27/18 09/27/18 09/28/18 1515:00 23:00 07:00 IntakeIntake Total 900 ml OutputOutput Total 200 ml BalanceBalance 700 ml Constitutional: alert Head: normocephalic Eyes: PERRL Respiratory: normal air movement, diminished breath sounds Gastrointestinal: soft, non-tender 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: nl mental status Results Result Diagram: 09/27/18 0532 09/28/18 0603 Results 24hrs Laboratory Tests Test 09/28/18 06:03 Absolute Reticulocyte Count 0.154 H Percent Reticulocyte Count 3.9 H Prothrombin Time 26.0 #H Prothrombin Time Ratio 2.0 INR International Normalized Ratio 2.37 Sodium Level 133 L Potassium Level 4.2 Chloride Level 91 L Carbon Dioxide Level 36 H Anion Gap 6 Blood Urea Nitrogen 23 H Creatinine 0.31 L Est Glomerular Filtrat Rate mL/min Glucose Level 169 Calcium Level 8.3 L Iron Level 47 Total Iron Binding Capacity 260 Percent Iron Saturation 18 L Ferritin 164.0 Vitamin B12 Level Pending Folate Pending Medications Medication Current Medications Acetaminophen (Tylenol Tab) 650 mg Q4H PRN PO PAIN LEVEL 1-5/10 Last administered on 09/26/18 20:07; Admin Dose 650 MG; Start 09/06/18 at 15:30 Ascorbic Acid (Vitamin C) 500 mg DAILY PO Last administered on 09/27/18 09:06; Admin Dose 500 MG; Start 09/07/18 at 09:00 Atorvastatin Calcium (Lipitor) 80 mg QHS PO Last administered on 09/27/18 22: 14; Admin Dose 80 MG; Start 09/06/18 at 21:00 Calcium/Vitamin D (Oyster Shell/ Vit-D (500/200)) 1 tab BID PO Last administered on 09/27/18 22:14; Admin Dose 1 TAB; Start 09/06/18 at 21:00 Fluoxetine HCl (Prozac) 10 mg DAILY PO Last administered on 09/27/18 09:06; Admin Dose 10 MG; Start 09/07/18 at 09:00 Primidone (Mysoline) 250 mg BID PO Last administered on 09/27/18 22:14; Admin Dose 250 MG; Start 09/06/18 at 21:00 Albuterol/ Ipratropium (Duoneb) 3 ml Q4H RESP THERAPY HHN Last administered on 09/28/18 04:37; Admin Dose 3 ML; Start 09/06/18 at 17:00 Promethazine HCl (Phenergan Liq) 6.25 mg TID PRN PO Cough Last administered on 09/17/18 18:22; Admin Dose 6.25 MG; Start 09/06/18 at 15:30 Albuterol/ Ipratropium (Duoneb) 3 ml Q4H RESP THERAPY PRN HHN SHORTNESS OF BREATH; Start 09/06/18 at 16:00 Pregabalin (Lyrica) 150 mg BID PO Last administered on 09/27/18 22:19; Admin Dose 150 MG; Start 09/07/18 at 10:30 Sulfasalazine (Azulfidine) 500 mg TID PO Last administered on 09/27/18 22:14; Admin Dose 500 MG; Start 09/07/18 at 13:00 Diltiazem HCl 125 ml @ 5 mls/hr TITRATE IV Last administered on 09/12/18 08:32; Admin Dose 5 MLS/HR; Start 09/09/18 at 11:30 Metoprolol Tartrate (Lopressor) 37.5 mg TID PO Last administered on 09/27/18 22:14; Admin Dose 37.5 MG; Start 09/12/18 at 13:00 Collagenase (Santyl) 1 applic DAILY TOP Last administered on 09/26/18 08:43; Admin Dose 1 APPLIC; Start 09/13/18 at 10:30 Collagenase (Santyl) 1 applic PRN PRN TOP WOUND CARE; Start 09/13/18 at 10:30 Bisacodyl (Dulcolax Supp) 10 mg DAILY PRN [place] constipation Last administered on 09/25/18 15:51; Admin Dose 10 MG; Start 09/17/18 at 09:00 Tramadol HCl (Ultram) 50 mg Q6H PRN GTB MODERATE PAIN LEVEL 4-6 Last administered on 09/26/18 18:42; Admin Dose 50 MG; Start 09/17/18 at 18:00 Phenol (Chloraseptic Throat [place]) 2 spray Q2H PRN [place] SORE THROAT Last administered on 09/24/18 05:14; Admin Dose 2 SPRAY; Start 09/17/18 at 21:00 Guaifenesin (Robitussin Liquid Cup) 400 mg BID PO Last administered on 09/27/18 22:15; Admin Dose 400 MG; Start 09/18/18 at 21:00 Morphine Sulfate (morphine) 2 mg Q3H PRN IV SEVERE PAIN LEVEL 7-10 Last administered on 09/22/18 16:33; Admin Dose 2 MG; Start 09/19/18 at 16:00 IV Flush (NS 10 ml) 10 ml PRN PRN IV IV PROTOCOL; Start 09/20/18 at 18:00 Fluconazole (Diflucan) 100 mg DAILY PEG Last administered on 09/27/18 09:06; Admin Dose 100 MG; Start 09/22/18 at 14:00 Docusate Sodium (Colace Liquid Cup) 200 mg BID PEG Last administered on 09/27/18 22:14; Admin Dose 200 MG; Start 09/23/18 at 21:00 Lansoprazole (Prevacid) 30 mg DAILY@06 PEG Last administered on 09/28/18 06:05; Admin Dose 30 MG; Start 09/24/18 at 06:00 Furosemide (Lasix) 40 mg DAILY IV Last administered on 09/27/18at 09:07; Admin Dose 40 MG; Start 09/24/18 at 14:00 Potassium Chloride (Potassium Chloride Pwd/Soln) 40 meq DAILY GTB Last administered on 09/27/18 09:06; Admin Dose 40 MEQ; Start 09/25/18 at 09:00 Alteplase, Recombinant (Cathflo (Activase)) 2 mg MAY REPEAT X1 PRN CATHETER IF CATHETER REMAINS OCCULUDED Last administered on 09/25/18 05:15; Admin Dose 2 MG; Start 09/24/18 at 16:00 SUSAN SAEED Sep 28, 2018 08:24
[2018-09-28] MEDS: GUAIFENESIN 20 MG/ML 5ML CUP PO SCH ×2 (08:48→21:44)
[2018-09-28] MEDS: CALCIUM/VITAMIN D (500/200) TAB PO SCH ×2 (08:49→21:32)
[2018-09-28] MEDS: FLUCONAZOLE 100 MG TAB PEG SCH (08:49)
[2018-09-28] MEDS: POTASSIUM CHLORIDE 20 MEQ POWDER FOR ORAL SOLN GTB SCH (08:49)
[2018-09-28] MEDS: FLUOXETINE 10 MG CAP PO SCH (08:49)
[2018-09-28] MEDS: COLLAGENASE 5 GM (UD JAR) TOP SCH (08:49)
[2018-09-28] MEDS: ASCORBIC ACID 500 MG TAB PO SCH (08:51)
[2018-09-28] MEDS: PRIMIDONE 250 MG TAB PO SCH ×2 (08:51→21:33)
[2018-09-28] MEDS: SULFASALAZINE 500 MG TAB PO SCH ×3 (08:52→21:32)
[2018-09-28] MEDS: METOPROLOL 25 MG TAB PO SCH ×3 (08:54→21:33)
[2018-09-28] MEDS: FUROSEMIDE 40 MG INJ IV SCH (08:55)
[2018-09-28] MEDS: PREGABALIN 75 MG CAP PO SCH ×2 (08:56→21:34)
[2018-09-28] MEDS: DOCUSATE SODIUM 10 MG/ML (10ML CUP) PEG SCH ×2 (08:56→21:44)
--- NOTE | 2018-09-28 13:42 | CONS ---
Consult Date/Type/Reason Admit Date/Time Sep 06, 2018 at 12:46 Initial Consult Date 09/25/18 Type of Consult Pulmonary Requesting Provider: NADINE JAMES MD Date/Time of Note DATE: 09/28/18 TIME: 13:41 Subjective Comfortable this morning no respiratory distress. Objective Vital Signs Date Temp Pulse Resp B/P (MAP) Pulse Ox O2 O2 Flow FiO2 Time Delivery Rate 09/28/18 80 18 100 Nasal 5.0 12:58 Cannula 09/28/18 96/52 (67) 12:57 09/28/18 97.4 11:26 09/28/18 30 04:37 Intake and Output 09/27/18 09/27/18 09/28/18 1515:00 23:00 07:00 IntakeIntake Total 900 ml OutputOutput Total 200 ml BalanceBalance 700 ml Exam GENERAL: Elderly appearing lady comfortable at rest VITAL SIGNS: per chart NECK: Supple. No JVD or lymphadenopathy. CARDIAC EXAM: S1, S2. No added sounds or murmurs. CHEST: Diminished air entry at bases ABDOMEN: Soft, nontender. No guarding or rebound. EXTREMITIES: No cyanosis, clubbing or edema. NEUROLOGIC: Generalized weakness. Vent Setting Fraction of Inspired Oxygen pe: 30 Results/Medications Result Diagram: 09/27/18 0532 09/28/18 0603 Results 24 hrs Laboratory Tests Test 09/28/18 06:03 Absolute Reticulocyte Count 0.154 H Percent Reticulocyte Count 3.9 H Prothrombin Time 26.0 #H Prothrombin Time Ratio 2.0 INR International Normalized Ratio 2.37 Sodium Level 133 L Potassium Level 4.2 Chloride Level 91 L Carbon Dioxide Level 36 H Anion Gap 6 Blood Urea Nitrogen 23 H Creatinine 0.31 L Est Glomerular Filtrat Rate mL/min Glucose Level 169 Calcium Level 8.3 L Iron Level 47 Total Iron Binding Capacity 260 Percent Iron Saturation 18 L Ferritin 164.0 Vitamin B12 Level > 1000 H Folate 6.6 Medications Current Medications Acetaminophen (Tylenol Tab) 650 mg Q4H PRN PO PAIN LEVEL 1-5/10 Last administered on 09/26/18at 20:07; Admin Dose 650 MG; Start 09/06/18 at 15:30 Ascorbic Acid (Vitamin C) 500 mg DAILY PO Last administered on 09/28/18at 08:51; Admin Dose 500 MG; Start 09/07/18 at 09:00 Atorvastatin Calcium (Lipitor) 80 mg QHS PO Last administered on 09/27/18 22:14; Admin Dose 80 MG; Start 09/06/18 at 21:00 Calcium/Vitamin D (Oyster Shell/ Vit-D (500/200)) 1 tab BID PO Last administered on 09/28/18 08:49; Admin Dose 1 TAB; Start 09/06/18 at 21:00 Fluoxetine HCl (Prozac) 10 mg DAILY PO Last administered on 09/28/18 08:49; Admin Dose 10 MG; Start 09/07/18 at 09:00 Primidone (Mysoline) 250 mg BID PO Last administered on 09/28/18 08:51; Admin Dose 250 MG; Start 09/06/18 at 21:00 Albuterol/ Ipratropium (Duoneb) 3 ml Q4H RESP THERAPY HHN Last administered on 09/28/18 12:58; Admin Dose 3 ML; Start 09/06/18 at 17:00 Promethazine HCl (Phenergan Liq) 6.25 mg TID PRN PO Cough Last administered on 09/17/18 18:22; Admin Dose 6.25 MG; Start 09/06/18 at 15:30 Albuterol/ Ipratropium (Duoneb) 3 ml Q4H RESP THERAPY PRN HHN SHORTNESS OF BREATH; Start 09/06/18 at 16:00 Pregabalin (Lyrica) 150 mg BID PO Last administered on 09/28/18 08:56; Admin Dose 150 MG; Start 09/07/18 at 10:30 Sulfasalazine (Azulfidine) 500 mg TID PO Last administered on 09/28/18 08:52; Admin Dose 500 MG; Start 09/07/18 at 13:00 Diltiazem HCl 125 ml @ 5 mls/hr TITRATE IV Last administered on 09/12/18 08:32; Admin Dose 5 MLS/HR; Start 09/09/18 at 11:30 Metoprolol Tartrate (Lopressor) 37.5 mg TID PO Last administered on 09/28/18 08:54; Admin Dose 37.5 MG; Start 09/12/18 at 13:00 Collagenase (Santyl) 1 applic DAILY TOP Last administered on 09/28/18 08:49; Admin Dose 1 APPLIC; Start 09/13/18 at 10:30 Collagenase (Santyl) 1 applic PRN PRN TOP WOUND CARE; Start 09/13/18 at 10:30 Bisacodyl (Dulcolax Supp) 10 mg DAILY PRN [place] constipation Last administered on 09/25/18 15:51; Admin Dose 10 MG; Start 09/17/18 at 09:00 Tramadol HCl (Ultram) 50 mg Q6H PRN GTB MODERATE PAIN LEVEL 4-6 Last administered on 09/26/18 18:42; Admin Dose 50 MG; Start 09/17/18 at 18:00 Phenol (Chloraseptic Throat [place]) 2 spray Q2H PRN [place] SORE THROAT Last administered on 09/24/18 05:14; Admin Dose 2 SPRAY; Start 09/17/18 at 21:00 Guaifenesin (Robitussin Liquid Cup) 400 mg BID PO Last administered on 09/28/18 08:48; Admin Dose 400 MG; Start 09/18/18 at 21:00 Morphine Sulfate (morphine) 2 mg Q3H PRN IV SEVERE PAIN LEVEL 7-10 Last administered on 09/22/18 16:33; Admin Dose 2 MG; Start 09/19/18 at 16:00 IV Flush (NS 10 ml) 10 ml PRN PRN IV IV PROTOCOL; Start 09/20/18 at 18:00 Fluconazole (Diflucan) 100 mg DAILY PEG Last administered on 09/28/18 08:49; Admin Dose 100 MG; Start 09/22/18 at 14:00 Docusate Sodium (Colace Liquid Cup) 200 mg BID PEG Last administered on 09/28/18 08:56; Admin Dose 200 MG; Start 09/23/18 at 21:00 Lansoprazole (Prevacid) 30 mg DAILY@06 PEG Last administered on 09/28/18 06:05; Admin Dose 30 MG; Start 09/24/18 at 06:00 Furosemide (Lasix) 40 mg DAILY IV Last administered on 09/28/18 08:55; Admin Dose 40 MG; Start 09/24/18 at 14:00 Potassium Chloride (Potassium Chloride Pwd/Soln) 40 meq DAILY GTB Last administered on 09/28/18 08:49; Admin Dose 40 MEQ; Start 09/25/18 at 09:00 Alteplase, Recombinant (Cathflo (Activase)) 2 mg MAY REPEAT X1 PRN CATHETER IF CATHETER REMAINS OCCULUDED Last administered on 09/25/18at 05:15; Admin Dose 2 MG; Start 09/24/18 at 16:00 Assessment/Plan Hospital Course (Demo Recall) IMP: 1. Aspiration event vs. transient mucus plugging--leading to intermittent resp insufficiency. Her mental status places her at risk for both events. 2. s/p Lacunar CVA 3. Dementia 4. Hyponatremia--> hypovolemic 5. Dysphagia s/p PEG 6. Mild pulm edema RECS: 1. Strict aspiration precautions 2. Aggressive CPT/BDs 3. Suctioning prn by RT 4. Would follow serum Na+ more closely as rate of correction a bit fast 5. Coumadin per primary team. Will likely need [facility] facility. ZOYA CUBA MD, [facility] Sep 28, 2018 13:42
--- NOTE | 2018-09-28 14:03 | PN ---
DATE: 09/28/2018 SUBJECTIVE: The patient has intermittent cough, somewhat lethargic. OBJECTIVE: VITAL SIGNS: Temperature 97.4, blood pressure earlier today was 85/48, now 96/52, O2 saturation 100% on 5 liters nasal cannula. CHEST: Revealed decreased breath sounds with few wheezes. HEART: S1, S2 with no definite gallops. EXTREMITIES: No edema. MICROBIOLOGY: The patient has been treated for [place] UTI, 7 days of Diflucan. LABORATORY: Sodium is 133, potassium 4.2, BUN 23, creatinine 0.31. PT/INR is 2.37. IMPRESSION: 1. Status post cerebrovascular accident. 2. Recurrent aspiration, status post PEG placement. 3. Atrial fibrillation, well compensated. 4. Congestive heart failure, improved. PLAN: We will discontinue IV Lasix. Start the patient on Lasix per G-tube. Coumadin 4 mg through G -tube today. Recheck PT/INR tomorrow. We will discuss with Dr. Cuba and initiate discharge plann ing back to the [facility] home. Dictated By: NADINE JAMES MD SR/NTS Conf#: [id number] DID#: [id number] CC: ZOYA CUBA MD;*EndCC*
[2018-09-28] MEDS ORDERED: WARFARIN 2 MG TAB GTB ONE (17:00)
[2018-09-28] MEDS: ATORVASTATIN 80 MG TAB PO SCH (21:32)
[2018-09-29] VITALS (9 sets, daily range): BP systolic 100–131; BP diastolic 55–66; PULSE 85–99; RESP 17–19
[2018-09-29] MEDS: ALBUTEROL/IPRATROPIUM (NEB) 3 ML AMP HHN SCH ×5 (00:44→16:46)
[2018-09-29] MEDS: LANSOPRAZOLE 30 MG CAP PEG SCH (05:48)
[2018-09-29] MEDS: GUAIFENESIN 20 MG/ML 5ML CUP PO SCH (08:22)
[2018-09-29] MEDS: FLUOXETINE 10 MG CAP PO SCH (08:22)
[2018-09-29] MEDS: PREGABALIN 75 MG CAP PO SCH (08:22)
[2018-09-29] MEDS: DOCUSATE SODIUM 10 MG/ML (10ML CUP) PEG SCH (08:22)
[2018-09-29] MEDS: PRIMIDONE 250 MG TAB PO SCH (08:22)
[2018-09-29] MEDS: POTASSIUM CHLORIDE 20 MEQ POWDER FOR ORAL SOLN GTB SCH (08:22)
[2018-09-29] MEDS: CALCIUM/VITAMIN D (500/200) TAB PO SCH (08:22)
[2018-09-29] MEDS: SULFASALAZINE 500 MG TAB PO SCH ×2 (08:23→13:27)
[2018-09-29] MEDS: ASCORBIC ACID 500 MG TAB PO SCH (08:23)
[2018-09-29] MEDS: METOPROLOL 25 MG TAB PO SCH ×2 (08:24→13:00)
[2018-09-29] MEDS: COLLAGENASE 5 GM (UD JAR) TOP SCH (08:24)
[2018-09-29] MEDS ORDERED: FUROSEMIDE 40 MG TAB GTB SCH (09:00)
[2018-09-29] MEDS ORDERED: METO-448 PO (09:55)
[2018-09-29] MEDS ORDERED: COU5 NGT (09:55)
--- NOTE | 2018-09-29 11:08 | CONS ---
Consult Date/Type/Reason Admit Date/Time Sep 06, 2018 at 12:46 Initial Consult Date 09/25/18 Type of Consult Pulmonary Requesting Provider: NADINE JAMES MD Date/Time of Note DATE: 09/29/18 TIME: 11:07 Subjective Comfortable at rest no respiratory distress. Objective Vital Signs Date Temp Pulse Resp B/P (MAP) Pulse Ox O2 O2 Flow FiO2 Time Delivery Rate 09/29/18 97 20 100 Nasal 3.0 09:02 Cannula 09/29/18 98.1 131/66 07:34 (87) 09/28/18 30 04:37 Intake and Output 09/28/18 09/28/18 09/29/18 1414:59 22:59 06:59 IntakeIntake Total 1115 ml OutputOutput Total 900 ml BalanceBalance 215 ml Exam GENERAL: Elderly appearing lady comfortable at rest VITAL SIGNS: per chart NECK: Supple. No JVD or lymphadenopathy. CARDIAC EXAM: S1, S2. No added sounds or murmurs. CHEST: Diminished air entry at bases ABDOMEN: Soft, nontender. No guarding or rebound. EXTREMITIES: No cyanosis, clubbing or edema. NEUROLOGIC: Generalized weakness. Vent Setting Fraction of Inspired Oxygen pe: 30 Results/Medications Result Diagram: 09/29/18 0520 09/29/18 0521 Results 24 hrs Laboratory Tests Test 09/29/18 05:20 09/29/18 05:21 White Blood Count 9.5 Red Blood Count 4.28 Hemoglobin 11.0 L Hematocrit 34.7 L Mean Corpuscular Volume 81.1 L Mean Corpuscular Hemoglobin 25.7 L Mean Corpuscular Hemoglobin Concent 31.7 L Red Cell Distribution Width 21.7 H Platelet Count 190 Mean Platelet Volume 11.0 H Immature Granulocytes % 1.300 H Neutrophils % 75.0 Lymphocytes % 12.4 L Monocytes % 8.5 Eosinophils % 2.5 Basophils % 0.3 Nucleated Red Blood Cells % 0.0 Immature Granulocytes # 0.120 H Neutrophils # 7.2 Lymphocytes # 1.2 Monocytes # 0.8 Eosinophils # 0.2 Basophils # 0.0 Nucleated Red Blood Cells # 0.0 Prothrombin Time 22.9 H Prothrombin Time Ratio 1.8 INR International Normalized Ratio 2.02 Sodium Level 134 L Potassium Level 4.4 Chloride Level 93 L Carbon Dioxide Level 35 H Anion Gap 6 Blood Urea Nitrogen 22 H Creatinine 0.29 L Est Glomerular Filtrat Rate mL/min Glucose Level 179 Calcium Level 8.8 Medications Current Medications Acetaminophen (Tylenol Tab) 650 mg Q4H PRN PO PAIN LEVEL 1-5 Last administered on 09/26/18 20:07; Admin Dose 650 MG; Start 09/06/18 at 15:30 Ascorbic Acid (Vitamin C) 500 mg DAILY PO Last administered on 09/29/18 08:23; Admin Dose 500 MG; Start 09/07/18 at 09:00 Atorvastatin Calcium (Lipitor) 80 mg QHS PO Last administered on 09/28/18 21:32; Admin Dose 80 MG; Start 09/06/18 at 21:00 Calcium/Vitamin D (Oyster Shell/ Vit-D (500/200)) 1 tab BID PO Last administered on 09/29/18 08:22; Admin Dose 1 TAB; Start 09/06/18 at 21:00 Fluoxetine HCl (Prozac) 10 mg DAILY PO Last administered on 09/29/18 08:22; Admin Dose 10 MG; Start 09/07/18 at 09:00 Primidone (Mysoline) 250 mg BID PO Last administered on 09/29/18 08:22; Admin Dose 250 MG; Start 09/06/18 at 21:00 Albuterol/ Ipratropium (Duoneb) 3 ml Q4H RESP THERAPY HHN Last administered on 09/29/18 09:01; Admin Dose 3 ML; Start 09/06/18 at 17:00 Promethazine HCl (Phenergan Liq) 6.25 mg TID PRN PO Cough Last administered on 09/17/18 18:22; Admin Dose 6.25 MG; Start 09/06/18 at 15:30 Albuterol/ Ipratropium (Duoneb) 3 ml Q4H RESP THERAPY PRN HHN SHORTNESS OF BREATH; Start 09/06/18 at 16:00 Pregabalin (Lyrica) 150 mg BID PO Last administered on 09/29/18 08:22; Admin Dose 150 MG; Start 09/07/18 at 10:30 Sulfasalazine (Azulfidine) 500 mg TID PO Last administered on 09/29/18 08:23; Admin Dose 500 MG; Start 09/07/18 at 13:00 Metoprolol Tartrate (Lopressor) 37.5 mg TID PO Last administered on 09/29/18 08:24; Admin Dose 37.5 MG; Start 09/12/18 at 13:00 Collagenase (Santyl) 1 applic DAILY TOP Last administered on 09/28/18 08:49; Admin Dose 1 APPLIC; Start 09/13/18 at 10:30 Collagenase (Santyl) 1 applic PRN PRN TOP WOUND CARE; Start 09/13/18 at 10:30 Bisacodyl (Dulcolax Supp) 10 mg DAILY PRN AR constipation Last administered on 09/25/18 15:51; Admin Dose 10 MG; Start 09/17/18 at 09:00 Tramadol HCl (Ultram) 50 mg Q6H PRN GTB MODERATE PAIN LEVEL 4-6 Last administered on 09/26/18 18:42; Admin Dose 50 MG; Start 09/17/18 at 18:00 Phenol (Chloraseptic Throat [place]) 2 spray Q2H PRN MT SORE THROAT Last administered on 09/24/18 05:14; Admin Dose 2 SPRAY; Start 09/17/18 at 21:00 Guaifenesin (Robitussin Liquid Cup) 400 mg BID PO Last administered on 09/29/18 08:22; Admin Dose 400 MG; Start 09/18/18 at 21:00 Morphine Sulfate (morphine) 2 mg Q3H PRN IV SEVERE PAIN LEVEL 7-10 Last administered on 09/22/18 16:33; Admin Dose 2 MG; Start 09/19/18 at 16:00 IV Flush (NS 10 ml) 10 ml PRN PRN IV IV PROTOCOL; Start 09/20/18 at 18:00 Docusate Sodium (Colace Liquid Cup) 200 mg BID PEG Last administered on 09/29/18 08:22; Admin Dose 200 MG; Start 09/23/18 at 21:00 Lansoprazole (Prevacid) 30 mg DAILY@06 PEG Last administered on 09/29/18 05:48; Admin Dose 30 MG; Start 09/24/18 at 06:00 Potassium Chloride (Potassium Chloride Pwd/Soln) 40 meq DAILY GTB Last administered on 09/29/18 08:22; Admin Dose 40 MEQ; Start 09/25/18 at 09:00 Alteplase, Recombinant (Cathflo (Activase)) 2 mg MAY REPEAT X1 PRN CATHETER IF CATHETER REMAINS OCCULUDED Last administered on 09/25/18at 05:15; Admin Dose 2 MG; Start 09/24/18 at 16:00 Furosemide (Lasix) 40 mg DAILY GTB Last administered on 09/29/18at 08:23; Admin Dose 40 MG; Start 09/29/18 at 09:00 Warfarin Sodium (Coumadin) 5 mg DAILY@17 NGT ; Start 09/29/18 at 17:00 Assessment/Plan Hospital Course (Demo Recall) IMP: 1. Aspiration event vs. transient mucus plugging--leading to intermittent resp insufficiency. Her mental status places her at risk for both events. 2. s/p Lacunar CVA 3. Dementia 4. Hyponatremia--> hypovolemic 5. Dysphagia s/p PEG 6. Mild pulm edema RECS: 1. Strict aspiration precautions 2. Aggressive CPT/BDs 3. Suctioning prn by RT 4. Stable serum sodium. 5. Coumadin per primary team. Agree with DC planning. ZOYA CUBA MD, [facility] September 29, 2018 11:08
[2018-09-29] MEDS ORDERED: WARFARIN 5 MG TAB NGT SCH (17:00)
--- NOTE | 2018-09-30 02:21 | DS ---
DATE OF ADMISSION: 09/06/2018 DATE OF DISCHARGE: 09/29/2018 FINAL DIAGNOSES: 1. Acute respiratory failure with asthmatic bronchitis with aspiration pneumonia. 2. Atrial fibrillation with rapid ventricular response with CHF. 3. Acute cerebrovascular accident with lacunar infarct in the right frontoparietal lobes and posteri or corpus callosum. 4. Neurogenic dysphagia, status post G-tube placement. HOSPITAL COURSE: The patient is an 83-year-old lady referred by Dr. Mosquera from [facility] with a history of dementia, status post recent CVA, presenting with increasing shortness of breath, wheezing and failed outpatient treatment. The patient was found to be in moderate respiratory distress. Joslyn st exam revealing bilateral rhonchi and patient also had evidence of urinary tract infection. The pa tient was begun on Lovenox, vancomycin, cefepime and intravenous Solu-Medrol. She gradually improved . She was placed on tapering dose of prednisone and she began having severe cough and there was conc amalia for aspiration. Speech therapy evaluated the patient and the patient was thought to be high risk for aspiration and alternative modes of feeding with advice and patient underwent a G-tube placement by Dr. Montalvo. The patient was seen by Dr. Mckeon from neurology standpoint and was closely rodo tored from neurologic standpoint. She also had complaint of congestive heart failure with increasing vascular congestion, improved with intravenous Lasix, and she was begun on Coumadin and a cardiology consultation with Dr. Hansen and there was also a pulmonary consultation obtained with Dr. Ok hernandez on 09/25/2018. He recommended no further antibiotics and strict aspiration precautions. The patie nt gradually improved and was discharged back to the [facility] in much improved condition to continue warfarin 5 mg daily. Recheck the protime INR course next 2 days. Continue Lasix and potass ium and G-tube feedings. Discussed the patient's discharge with the patient's daughter. DISCHARGE CONDITION: Much improved. Dictated By: NADINE JAMES MD SR/NTS Conf#: [id number] DID#: [id number]
== END 2018-09-29 19:25 | DRG 291 ==
LOC: E/R 09:46 → 6WM 12:46 → EDBEDREQSVC 12:58 → UNDODISIN 09-07 16:10 → 6WM 09-21 22:39
PROVIDERS: ADMIT Internal Medicine; ATTEND Internal Medicine
PROC: 3E0G76Z Introduction of Nutritional Substance into Upper GI, Via Natural or Artificial Opening (ICD-10-PCS; 2018-09-17)
PROC: 02HV33Z Insertion of Infusion Device into Superior Vena Cava, Percutaneous Approach (ICD-10-PCS; 2018-09-20)
PROC: 0DH63UZ Insertion of Feeding Device into Stomach, Percutaneous Approach (ICD-10-PCS; principal; 2018-09-20 16:30)
DX: I11.0 Hypertensive heart disease with heart failure (principal); J96.00 Acute respiratory failure, unspecified whether with hypoxia or hypercapnia; J69.0 Pneumonitis due to inhalation of food and vomit; I63.81 Other cerebral infarction due to occlusion or stenosis of small artery; N39.0 Urinary tract infection, site not specified; E87.1 Hypo-osmolality and hyponatremia; I69.351 Hemiplegia and hemiparesis following cerebral infarction affecting right dominant side; D63.8 Anemia in other chronic diseases classified elsewhere; E87.6 Hypokalemia; E78.5 Hyperlipidemia, unspecified; F01.50 Vascular dementia, unspecified severity, without behavioral disturbance, psychotic disturbance, mood disturbance, and anxiety; F32.9 Major depressive disorder, single episode, unspecified; G40.909 Epilepsy, unspecified, not intractable, without status epilepticus; I50.9 Heart failure, unspecified; I48.2 Chronic atrial fibrillation; I69.320 Aphasia following cerebral infarction; J45.909 Unspecified asthma, uncomplicated; K29.00 Acute gastritis without bleeding; R13.10 Dysphagia, unspecified; R26.2 Difficulty in walking, not elsewhere classified; B96.20 Unspecified Escherichia coli [E. coli] as the cause of diseases classified elsewhere; B95.2 Enterococcus as the cause of diseases classified elsewhere; Z66 Do not resuscitate; Z96.641 Presence of right artificial hip joint; Z96.651 Presence of right artificial knee joint
CPT/HCPCS: 36415; 36569; 36600; 70470; 70551; 71045; 76937; 80048; 80053; 80202; 81001; 82270; 82565; 82607; 82728; 82746; 82803; 83540; 83605; 83735; 83880; 83930; 83935; 84300; 84436; 84443; 84484; 84520; 85025; 85045; 85610; 85730; 87081; 87086; 92526; 92610; 93005; 93306; 94640; 94644; 94664; 94760; 95819; 96365; 96375; J0690; J0692; J1100; J1650; J1940; J2060; J2270; J2920; J2997; J3370; J3475; J7030; J7050; J7512

== ENCOUNTER 2019-02-10 11:18 | Day surgery (SDC) | payer MEDICARE, OTHER ==
[2019-02-10] VITALS (8 sets, daily range): BP systolic 124–146; BP diastolic 49–68; PULSE 90–96; RESP 18–24
[~2019-02-10] VITALS: Ht 165.1 cm; Wt 82.0 kg
[~2019-02-10 11:18] MED LIST changes: +ACET325T33 PO; +AMIN30LI PO; +AMLO5TAB4 PO; +ASC500 PO; -ATEN-51 PO; +ATOR-2 PO; +BISA10SU75 PR; +CALC-207 PO; +COU5 NGT; +CYAN100080 PO; +DOCU-144 PO; +ERGO500013 PO; +FER325 PO; +FLUO10TA PO; +FOLI-49 PO; +GUAI600T23 PO; +HYDR-3671 PO; +MAGN400O19 PO; -MET25 PO; +METO-448 PO; +MULT-105 PO; +NA P230E RC; -PRED2.5T3 PO; +PRED5TAB PO; -PREG150C PO; +SULF500T5 PO; -WARFARIN; +[UNRECOGNIZED DRUG - CODE] PO
[2019-02-10] MEDS ORDERED: FENTAnyl 50 MCG/ML VIAL ONE (11:25)
[2019-02-10] MEDS ORDERED: CEFAZOLIN 1 GM/50 ML (PMX) IVPB ONE (11:25)
[2019-02-10] MEDS ORDERED: PROPOFOL 200 MG INJ ONE (11:25)
== END 2019-02-10 14:25 | disposition home or self-care (01) ==
LOC: GIL 11:18
PROVIDERS: ATTEND Internal Medicine Gastroenterology
DX: R13.14 Dysphagia, pharyngoesophageal phase (principal); Z86.73 Personal history of transient ischemic attack (TIA), and cerebral infarction without residual deficits
CPT/HCPCS: 43246; J0690; J3010